=== PATIENT | male | born 1935 | race Caucasian/White ===

== ENCOUNTER → 2018-07-08 | Outpatient (CLI) | payer MEDICARE ==
[~2018-07-08] MED LIST: ACET-77 PO; AMLO10TA4 PO; AMOX500C2 PO; BISO10TA8 PO; IOHEXOL 350 MG/ML 150 ML (OMNIPAQUE 350) VIAL IV ONE; LATA2.5D19 OS; LEVE10006 PO; LISI40TA PO; NS 250 ML (IVPB) BAG IV ONE; SULF1TAB35 PO
[2018-07-08 14:56] LABS: BASOPHILS % (AUTO) 0 % (0-10); EOSINOPHILS % (AUTO) 1 % (0-10); HEMATOCRIT 40 % (40-54); HEMOGLOBIN 12.8 G/DL (13.3-17.7); LYMPHOCYTES # (AUTO) 0.9 X 10^3 (1.0-4.0); LYMPHOCYTES % (AUTO) 16 % (12-44); MEAN CORPUSCULAR HEMOGLOBIN 34 PG (25-34); MEAN CORPUSCULAR HGB CONC 32 G/DL (32-36); MEAN CORPUSCULAR VOLUME 106 FL (80-99); MEAN PLATELET VOLUME 9.7 FL (7.4-10.4); MONOCYTES # (AUTO) 0.4 X 10^3 (0.0-1.0); MONOCYTES % (AUTO) 7 % (0-12); NEUTROPHILS # (AUTO) 3.9 X 10^3 (1.8-7.8); NEUTROPHILS % (AUTO) 75 % (42-75); PLATELET COUNT 176 10^3/uL (130-400); RED BLOOD COUNT 3.77 10^6/uL (4.35-5.85); RED CELL DISTRIBUTION WIDTH 13.2 % (10.0-14.5); WHITE BLOOD COUNT 5.2 10^3/uL (4.3-11.0)
[2018-07-08 15:15] LABS: ALANINE AMINOTRANSFERASE 16 U/L (0-55); ALBUMIN 3.6 GM/DL (3.2-4.5); ALKALINE PHOSPHATASE 81 U/L (40-136); BILIRUBIN,TOTAL 0.7 MG/DL (0.1-1.0); BUN/CREATININE RATIO 27; CALCIUM 9.2 MG/DL (8.5-10.1); CARBON DIOXIDE 40 MMOL/L (21-32); CHLORIDE 90 MMOL/L (98-107); CREATININE SERUM 1.05 MG/DL (0.60-1.30); GFR ESTIMATED > 60; GLUCOSE 108 MG/DL (70-105); POTASSIUM 5.2 MMOL/L (3.6-5.0); SODIUM 138 MMOL/L (135-145); TOTAL PROTEIN 6.6 GM/DL (6.4-8.2)
--- NOTE | 2018-07-08 15:59 | Diagnostic Imaging Report ---
PROCEDURE: CT angiography of the chest with contrast. TECHNIQUE: Multiple contiguous axial images were obtained through the chest after uneventful bolus administration of intravenous contrast. 2D reconstructed CTA MIP acquisitions were also performed. INDICATION: Congestive heart failure and shortness of breath. No prior studies are available for comparison. FINDINGS: Evaluation of the pulmonary arterial system is without evidence of thromboembolism. No filling defects are seen within central, lobar or segmental branches. The thoracic aorta is normal caliber. No dissection is identified. No pericardial or pleural fluid is identified. There is a large hiatal hernia. No definite axillary lymphadenopathy is seen. No mediastinal or hilar lymphadenopathy is identified. There is some scarring or subsegmental atelectasis in the superior segment of left lower lobe. There is some mild consolidation in the lingula. Right lung is clear. Upper abdomen is unremarkable. IMPRESSION: 1. No evidence of pulmonary embolism or thoracic aortic dissection. 2. Large hiatal hernia. 3. There is some mild subsegmental atelectasis or scarring on the left as well as a small area of parenchymal consolidation in the lingula consistent with pneumonia or atelectasis. No other significant abnormality is seen. Dictated by: Dictated on workstation # [id number]
== END ==
LOC: RAD 14:20
PROVIDERS: ATTEND Nurse Practitioner Family
DX: K44.9 Diaphragmatic hernia without obstruction or gangrene (principal); I50.9 Heart failure, unspecified; J18.1 Lobar pneumonia, unspecified organism; R60.0 Localized edema; G47.10 Hypersomnia, unspecified; E66.9 Obesity, unspecified
CPT/HCPCS: 36415; 71275; 80053; 85025

== ENCOUNTER → 2018-07-09 | Outpatient (CLI) | payer MEDICARE ==
[~2018-07-09] MED LIST changes: -IOHEXOL 350 MG/ML 150 ML (OMNIPAQUE 350) VIAL IV ONE; -NS 250 ML (IVPB) BAG IV ONE; +RT-ALBUTEROL SULF 2.5 MG/3 ML PRE-MIX VIAL INH ONE
== END ==
LOC: RT 13:00
PROVIDERS: ATTEND Nurse Practitioner Family
DX: I50.9 Heart failure, unspecified (principal); R60.9 Edema, unspecified; G47.10 Hypersomnia, unspecified; J96.20 Acute and chronic respiratory failure, unspecified whether with hypoxia or hypercapnia; E66.9 Obesity, unspecified; R06.00 Dyspnea, unspecified

== ENCOUNTER 2018-08-09 01:01 | Emergency (ER) | payer MEDICARE ==
[~2018-08-09] VITALS: Ht 175.3 cm; Wt 108.9 kg
[~2018-08-09 01:01] MED LIST changes: -RT-ALBUTEROL SULF 2.5 MG/3 ML PRE-MIX VIAL INH ONE
--- OUTSIDE RECORDS SUMMARY | 2018-08-09 01:08 | XMS REPORT | Clinical Summary ---
Author Author [facility] Organization [facility] Address Unknown Phone Unavailable Care Team Providers Care Fabrication Supervisor Name Role Phone Suze Combs MD PCP Source Comments Some departments are not documenting in the electronic medical record. If you do not see the information that you expected, contact Release of Information in the Health Information Management department at [phone] for further assistance in locating additional records.[facility] Allergies No Known Allergies Current Medications Prescription Sig. Disp. Refills Start End Date Status Date lisinopril (PRINIVIL; Take 10 mg by mouth Active ZESTRIL) 10 mg tablet daily. latanoprost (XALATAN) Apply 1 drop to left eye Active 0.005 % ophthalmic as directed at bedtime solution daily. carvedilol (COREG) 3.125 Take one tablet by mouth 180 tablet 3 Active mg tablet twice daily. Take with 18 food. furosemide (LASIX) 40 mg Take one tablet by mouth 90 tablet 3 Active tablet daily. 18 spironolactone Take one tablet by mouth 90 tablet 3 06/27/20 Active (ALDACTONE) 25 mg tablet daily. Take with food. 18 montelukast (SINGULAIR) Take one tablet by mouth 90 tablet 3 06/27/20 Active 10 mg tablet at bedtime daily. 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) 06/22/2018 Resolved Problems Problem Noted Date Resolved Date Acute encephalopathy 06/22/2018 06/25/2018 Encounters Date Type Specialty Care Team Description 06/30/2018 Hosp Joyce Last RNbranch service associate Only 06/28/2018 Pharmacy Visit 06/28/2018 Pharmacy Visit 06/26/2018 Pharmacy Visit 06/22/2018 [facility] Lia Foster MD Acute respiratory failure - Encounter Dwayne Myers MD with hypoxia and 06/27/2018 Tien Harper MD hypercapnia (HCC) Bridgett Rodgers MD 06/21/2018 Hospital Radiology Encounter 06/21/2018 Hospital Radiology Encounter 06/21/2018 Hospital Radiology Encounter from Last 3 Months Family History Medical History Relation Name Comments Heart Failure Mother Relation Name Status Comments Mother Social History Tobacco Use Types Packs/Day Years Used Date Former Smoker Cigarettes 2 35 Quit: 06/24/1978 Smokeless Tobacco: Never Used Alcohol Use Drinks/Week oz/Week Comments No Sex Assigned at Date Recorded Not on file Last Filed Vital Signs Vital Sign Reading Time Taken Blood Pressure 137/77 06/27/2018 4:09 PM CDT Pulse 80 06/27/2018 4:09 PM CDT Temperature 36.4 C (97.5 F) 06/27/2018 4:09 PM CDT Respiratory Rate - - Oxygen Saturation 98% 06/27/2018 4:09 PM CDT Inhaled Oxygen - - Concentration Weight 119.2 kg (262 lb 12.6 oz) 06/25/2018 3:00 AM CDT Height 173 cm (5' 8.11") 06/22/2018 10:18 AM CDT Body Mass Index 39.83 06/25/2018 3:00 AM CDT Plan of Treatment Health Maintenance Due Date Last Done Comments PHYSICAL (COMPREHENSIVE) 1942 EXAM DTAP/TDAP VACCINES (1 - 1955 Tdap) SHINGLES RECOMBINANT 1987 VACCINE (1 of 2) PNEUMONIA (PCV13/PPSV23) 2002 VACCINES (1 of 2 - PCV13) INFLUENZA VACCINE 04/14/2018 Procedures Procedure Name Priority Date/Time Associated Diagnosis Comments ECG-SCAN 07/24/2018 Results for this 5:50 PM INSPECTOR [employer]IP ON [employer]GLASSES procedure are in the results section. ECG-SCAN 07/24/2018 Results for this 5:50 PM INSPECTOR [employer] procedure are in the results section. ECG-SCAN 07/24/2018 Results for this 5:50 PM INSPECTOR [employer] procedure are in the results section. TELEMETRY STRIPS-SCAN 06/28/2018 Results for this 11:41 AM CDT procedure are in the results section. BLOOD GASES, PERIPHERAL Routine 06/27/2018 Results for this VENOUS 5:35 AM CDT procedure are in the results section. CBC AND DIFF Routine 06/27/2018 Results for this 4:57 AM CDT procedure are in the results section. COMPREHENSIVE METABOLIC Routine 06/27/2018 Results for this PANEL 4:57 AM CDT procedure are in the results section. MAGNESIUM Routine 06/27/2018 Results for this 4:57 AM CDT procedure are in the results section. PHOSPHORUS Routine 06/27/2018 Results for this 4:57 AM CDT procedure are in the results section. BLOOD GASES, PERIPHERAL Routine 06/26/2018 Results for this VENOUS 2:29 PM CDT procedure are in the results section. CONSULT IV THERAPY TEAM Routine 06/26/2018 1:39 PM CDT PHOSPHORUS Routine 06/26/2018 Results for this 6:36 AM CDT procedure are in the results section. MAGNESIUM Routine 06/26/2018 Results for this 6:36 AM CDT procedure are in the results section. COMPREHENSIVE METABOLIC Routine 06/26/2018 Results for this PANEL 6:36 AM CDT procedure are in the results section. CBC AND DIFF Routine 06/26/2018 Results for this 6:36 AM CDT procedure are in the results section. BLOOD GASES, ARTERIAL Routine 06/26/2018 Results for this 6:08 AM CDT procedure are in the results section. PHOSPHORUS Routine 06/25/2018 Results for this 7:07 AM CDT procedure are in the results section. MAGNESIUM Routine 06/25/2018 Results for this 7:07 AM CDT procedure are in the results section. COMPREHENSIVE METABOLIC Routine 06/25/2018 Results for this PANEL 7:07 AM CDT procedure are in the results section. CBC AND DIFF Routine 06/25/2018 Results for this 7:07 AM CDT procedure are in the results section. PHOSPHORUS STAT 06/24/2018 Results for this 4:48 AM CDT procedure are in the results section. MAGNESIUM STAT 06/24/2018 Results for this 4:48 AM CDT procedure are in the results section. COMPREHENSIVE METABOLIC STAT 06/24/2018 Results for this PANEL 4:48 AM CDT procedure are in the results section. CBC AND DIFF Routine 06/24/2018 Results for this 3:43 AM CDT procedure are in the results section. SWALLOW MOTION SERIES Routine 06/23/2018 Results for this 2:28 PM CDT procedure are in the results section. POTASSIUM Routine 06/23/2018 Results for this 8:44 AM CDT procedure are in the results section. BLOOD GASES, ARTERIAL Routine 06/23/2018 Results for this 8:44 AM CDT procedure are in the results section. MAGNESIUM Routine 06/23/2018 Results for this 8:44 AM CDT procedure are in the results section. PHOSPHORUS Routine 06/23/2018 Results for this 4:38 AM CDT procedure are in the results section. COMPREHENSIVE METABOLIC Routine 06/23/2018 Results for this PANEL 4:38 AM CDT procedure are in the results section. CBC AND DIFF Routine 06/23/2018 Results for this 4:38 AM CDT procedure are in the results section. MAGNESIUM Routine 06/23/2018 Results for this 12:15 AM CDT procedure are in the results section. POTASSIUM Routine 06/23/2018 Results for this 12:15 AM CDT procedure are in the results section. MAGNESIUM STAT 06/22/2018 Results for this 5:27 PM CDT procedure are in the results section. POTASSIUM STAT 06/22/2018 Results for this 5:27 PM CDT procedure are in the results section. 2-D + DOPPLER Routine 06/22/2018 Results for this ECHOCARDIOGRAM 10:17 AM CDT procedure are in the results section. PROTIME INR (PT) STAT 06/22/2018 Results for this 3:55 AM CDT procedure are in the results section. PTT (APTT) STAT 06/22/2018 Results for this 3:55 AM CDT procedure are in the results section. TROPONIN-I STAT 06/22/2018 Results for this 3:55 AM CDT procedure are in the results section. RVP VIRAL PANEL PCR Routine 06/22/2018 Results for this 2:02 AM CDT procedure are in the results section. GRAM STAIN 06/22/2018 Results for this 2:02 AM CDT procedure are in the results section. CULTURE-RESP,LOWER Routine 06/22/2018 Results for this W/SENSITIVITY 2:02 AM CDT procedure are in the results section. BLOOD GASES, ARTERIAL STAT 06/22/2018 Results for this 1:41 AM CDT procedure are in the results section. CULTURE-BLOOD Routine 06/22/2018 Results for this W/SENSITIVITY 1:41 AM CDT procedure are in the results section. CHEST SINGLE VIEW VILMA 06/22/2018 Results for this 1:28 AM CDT procedure are in the results section. PROCALCITONIN Add on 06/22/2018 Results for this 1:25 AM CDT procedure are in the results section. TROPONIN-I STAT 06/22/2018 Results for this 1:25 AM CDT procedure are in the results section. TSH WITH FREE T4 REFLEX Routine 06/22/2018 Results for this 1:25 AM CDT procedure are in the results section. BNP (B-TYPE NATRIURETIC Routine 06/22/2018 Results for this PEPTI) 1:25 AM CDT procedure are in the results section. PHOSPHORUS Routine 06/22/2018 Results for this 1:25 AM CDT procedure are in the results section. MAGNESIUM Routine 06/22/2018 Results for this 1:25 AM CDT procedure are in the results section. COMPREHENSIVE METABOLIC Routine 06/22/2018 Results for this PANEL 1:25 AM CDT procedure are in the results section. CBC AND DIFF Routine 06/22/2018 Results for this 1:25 AM CDT procedure are in the results section. CULTURE-BLOOD Routine 06/22/2018 Results for this W/SENSITIVITY 1:25 AM CDT procedure are in the results section. IONIZED CALCIUM Routine 06/22/2018 Results for this 1:19 AM CDT procedure are in the results section. LACTIC ACID (BG - RAPID Routine 06/22/2018 Results for this LACTATE) 1:19 AM CDT procedure are in the results section. STREPTOCOCCUS PNEUMO AG, STAT 06/22/2018 Results for this URINE 1:12 AM CDT procedure are in the results section. LEGIONELLA ANTIGEN Routine 06/22/2018 Results for this URINE,RAN 1:12 AM CDT procedure are in the results section. URINALYSIS, MICROSCOPIC Routine 06/22/2018 Results for this 1:12 AM CDT procedure are in the results section. URINALYSIS DIPSTICK Routine 06/22/2018 Results for this 1:12 AM CDT procedure are in the results section. ECG 12-LEAD STAT 06/22/2018 1:03 AM CDT GENERAL RAD CHEST Routine 06/21/2018 Diagnosis unknown Results for this EXTERNAL IMAGING 12:30 AM CDT procedure are in the results section. GENERAL RAD CHEST Routine 06/21/2018 Diagnosis unknown Results for this EXTERNAL IMAGING 12:15 AM CDT procedure are in the results section. CT HEAD EXTERNAL IMAGING Routine 06/21/2018 Diagnosis unknown Results for this 12:00 AM CDT procedure are in the results section. from Last 3 Months Results * ECG-SCAN (07/24/2018 5:50 PM) Narrative Performed At Ordered by an unspecified provider. * ECG-SCAN (07/24/2018 5:50 PM) Narrative Performed At Ordered by an unspecified provider. * ECG-SCAN (07/24/2018 5:50 PM) Narrative Performed At Ordered by an unspecified provider. * TELEMETRY STRIPS-SCAN (06/28/2018 11:41 AM) Narrative Performed At Ordered by an unspecified provider. * BLOOD GASES, PERIPHERAL VENOUS (06/27/2018 5:35 AM) Only the most recent of 2 results within the time period is included. pH-Venous 7.34 7.30 - 7.40 [facility] PCO2-Venous 82 (H) 36 - 50 MMHG [facility] PO2-Venous 48 33 - 48 MMHG [facility] Base Excess-Venous 13.5 MMOL/L [facility] O2 Sat-Venous 81.7 (H) 55 - 71 % [facility] Voujnmfxvmb-HCR-Rag 36.9 MMOL/L [facility] Specimen Blood, venous - Blood Performing Organization Address City/State/Zipcode Phone Number [facility] [address] [place] [address] * CBC AND DIFF (06/27/2018 4:57 AM) Only the most recent of 6 results within the time period is included. White Blood Cells 3.7 (L) 4.5 - 11.0 K/UL MAIN [facility] RBC 3.69 (L) 4.4 - 5.5 M/UL [facility] Hemoglobin 12.6 (L) 13.5 - 16.5 GM/DL [facility] Hematocrit 39.0 (L) 40 - 50 % [facility] MCV 105.7 (H) 80 - 100 FL [facility] MCH 34.1 (H) 26 - 34 PG [facility]IN [facility] MCHC 32.3 32.0 - 36.0 G/DL MAIN LAB RDW 14.1 11 - 15 % [facility] Platelet Count 141 (L) 150 - 400 K/UL [facility] MPV 7.5 7 - 11 FL [facility] Neutrophils 72 41 - 77 % [facility] Lymphocytes 14 (L) 24 - 44 % [facility] Monocytes 13 (H) 4 - 12 % [facility] Eosinophils 1 0 - 5 % [facility] Basophils 0 0 - 2 % [facility] Absolute Neutrophil Count 2.70 1.8 - 7.0 K/UL [facility] Absolute Lymph Count 0.50 (L) 1.0 - 4.8 K/UL [facility] Absolute Monocyte Count 0.50 0 - 0.80 K/UL [facility] Absolute Eosinophil Count 0.00 0 - 0.45 K/UL [facility] Absolute Basophil Count 0.00 0 - 0.20 K/UL [facility] Specimen Blood Performing Organization Address City/[facility] Phone Number [facility] [address] [place] [address] * PHOSPHORUS (06/27/2018 4:57 AM) Only the most recent of 6 results within the time period is included. Phosphorus 2.7Comment: NOTE NEW REFERENCE 2.0 - 4.5 MG/DL MAIN LAB RANGES Specimen Blood Performing Organization Address [facility] Phone Number MAIN LAB [address] [place] [address] * MAGNESIUM (06/27/2018 4:57 AM) Only the most recent of 8 results within the time period is included. Magnesium 1.8 1.6 - 2.6 mg/dL [facility] Specimen Blood Performing Organization Address [facility] Phone Number [facility] [address] [place] [address] * COMPREHENSIVE METABOLIC PANEL (06/27/2018 4:57 AM) Only the most recent of 6 results within the time period is included. Sodium 140 137 - 147 MMOL/L [facility] Potassium 3.8 3.5 - 5.1 MMOL/L [facility] Chloride 93 (L) 98 - 110 MMOL/L [facility] Glucose 103 (H) 70 - 100 MG/DL [facility] Blood Urea Nitrogen 23 7 - 25 MG/DL [facility] Creatinine 0.80 0.4 - 1.24 MG/DL [facility] Calcium 8.7 8.5 - 10.6 MG/DL [facility] Total Protein 5.6 (L) 6.0 - 8.0 G/DL [facility] Total Bilirubin 0.6 0.3 - 1.2 MG/DL [facility] Albumin 3.1 (L) 3.5 - 5.0 G/DL [facility] Alk Phosphatase 46 25 - 110 U/L MAIN LAB AST (SGOT) 15 7 - 40 U/L [facility] CO2 42 (H) 21 - 30 MMOL/L [facility] ALT (SGPT) 9 7 - 56 U/L MAIN LAB Anion Gap 5 3 - 12 [facility] eGFR Non >60 >60 mL/min MAIN LAB Comment: The eGFR is not validated for use in drug dosing adjustments.Continue to use estimated creatinine clearance per dosing reference text.Please contact the Clinical Pharmacist for questions. eGFR >60 >60 mL/min MAIN LAB Comment: The eGFR is not validated for use in drug dosing adjustments.Continue to use estimated creatinine clearance per dosing reference text.Please contact the Clinical Pharmacist for questions. Specimen Blood Performing Organization Address City/[facility]/Zipcode Phone Number [facility] [address] [place] [address] * BLOOD GASES, ARTERIAL (06/26/2018 6:08 AM) Only the most recent of 3 results within the time period is included. pH-Arterial 7.35 7.35 - 7.45 MAIN LAB pCO2-Arterial 76 (HH) 35 - 45 MM[facility] MAIN LAB Comment: CRITICAL VALUE CALLED TO AND READ BACK BY/TIME/TECH MIGDALIA S/0638/NT pO2-Arterial 60 (L) 80 - 100 MM[facility] MAIN LAB Base Excess-Arterial 11.9 MMOL/L [facility] O2 Sat-Arterial 89.7 (L) 95 - 99 % [facility] Zzsimqzhwxn-PXL-Sja 35.5 (H) 21 - 28 MMOL/L [facility] Specimen Blood, arterial - Blood Performing Organization Address City/[facility]/Zipcode Phone Number [facility] [address] [place] [address] * SWALLOW MOTION SERIES (06/23/2018 2:28 PM) Impressions Performed At 1. Trace laryngeal penetration with thin consistency barium. [facility] RESULTS 2. Please see separately dictated report from the Department of Speech Pathology for further description. By my electronic signature, I attest that I have personally reviewed the images for this examination and formulated the interpretations and opinions expressed in this report Finalized by Dean Padron M.D. on 06/23/2018 3:43 PM. Dictated by Ritchie Payne D.O. on 06/23/2018 2:45 PM. Narrative Performed At SWALLOW MOTION SERIES [facility] RAD RESULTS CLINICAL HISTORY: 83-year-old male, community-acquired pneumonia of the right lower lobe, acute encephalopathy. TECHNIQUE: The procedure was performed in conjunction with members of the department of speech pathology. Video fluoroscopy was performed during swallowing of various consistencies of barium. The patient tolerated the procedure well and left the department in stable condition. TOTAL FLUOROSCOPY TIME: 138 seconds FINDINGS: Trace laryngeal penetration with thin consistency barium. No laryngeal penetration noted with other tested consistencies. No aspiration events. Procedure Note Interface, Radiant Results - 06/23/2018 3:46 PM CDT SWALLOW MOTION SERIES CLINICAL HISTORY: 83-year-old male, community-acquired pneumonia of the right lower lobe, acute encephalopathy. TECHNIQUE: The procedure was performed in conjunction with members of the department of speech pathology. Video fluoroscopy was performed during swallowing of various consistencies of barium. The patient tolerated the procedure well and left the department in stable condition. TOTAL FLUOROSCOPY TIME: 138 seconds FINDINGS: Trace laryngeal penetration with thin consistency barium. No laryngeal penetration noted with other tested consistencies. No aspiration events. IMPRESSION 1. Trace laryngeal penetration with thin consistency barium. 2. Please see separately dictated report from the Department of Speech Pathology for further description. By my electronic signature, I attest that I have personally reviewed the images for this examination and formulated the interpretations and opinions expressed in this report Finalized by Dean Padron M.D. on 06/23/2018 3:43 PM. Dictated by Ritchie Payne D.O. on 06/23/2018 2:45 PM. Performing Organization Address City/[facility] Phone Number [facility] * POTASSIUM (06/23/2018 8:44 AM) Only the most recent of 3 results within the time period is included. Potassium 4.0 3.5 - 5.1 MMOL/L [facility] Specimen Blood Performing Organization Address City/[facility] Phone Number MAIN LAB [address] [place] [address] * 2-D + DOPPLER ECHOCARDIOGRAM (06/22/2018 10:17 AM) IVS 0.61 0.6 - 1.0 cm OTHER OUTSIDE LAB LVIDD 5.51 4.2 - 5.8 cm OTHER OUTSIDE LAB LVIDS 4.37 2.5 - 4.0 cm OTHER OUTSIDE LAB PW 0.95 0.6 - 1.0 cm OTHER OUTSIDE LAB TDI e' 0.08 m/s OTHER OUTSIDE LAB LA size 3.94 3.0 - 4.0 cm OTHER OUTSIDE LAB AV peak velocity 1.27 m/s OTHER OUTSIDE LAB MV Peak A James 0.75 m/s OTHER OUTSIDE LAB MV Peak E James PW 0.55 m/s OTHER OUTSIDE LAB Sinus 3.51 3.1 - 3.7 cm OTHER OUTSIDE LAB BSA 2.39 m2 OTHER OUTSIDE LAB FS 20.69 28 - 44 % OTHER OUTSIDE LAB EF 35.17 % OTHER OUTSIDE LAB E/A ratio 0.73 OTHER OUTSIDE LAB E/E' ratio 6.88 OTHER OUTSIDE LAB LV mass 155.44 96 - 200 g OTHER OUTSIDE LAB RWT 0.34 <=0.42 OTHER OUTSIDE LAB TV rest pulmonary artery 70 mmHg OTHER OUTSIDE LAB pressure Cardiology Ultrasound Siemens [id number] OTHER OUTSIDE LAB Machine Left Ventricle Mass Index 65.04 50 - 102 g/m2 OTHER OUTSIDE LAB ECHO EF 60 % OTHER OUTSIDE LAB Narrative Performed At OTHER OUTSIDE LAB 1. Technically difficult study with poor visualization of cardiac structures. 2. Normal left ventricular systolic function with an EF of ejection fraction of 60-65% %. 3. No regional wall motion abnormalities. 4. Diastolic parameters were indeterminate. 5. The RV is not well visualized, it appears dilated with mildly impaired function.There is no D-shaped septum.We were unable to obtain quantitative parameters. 6. MAC with nonspecific mitral valve thickening, mitral valve function was preserved. 7. Mild to moderate TR. 8. Aortic sclerosis without stenosis. 9. Pulmonary hypertension with a peak pulmonary pressure of 70 mmHg. 10. Aortic root is at the upper end of normal for age and body surface area. 11. No pericardial effusion. No prior studies available for comparison. Performing Organization Address City/State/Zipcode Phone Number OTHER OUTSIDE LAB * TROPONIN-I (06/22/2018 3:55 AM) Only the most recent of 2 results within the time period is included. Troponin-I 0.04 0.0 - 0.05 NG/ML [facility] Specimen Blood Performing Organization Address [facility] Phone Number [facility] [address] [place] [address] * PTT (APTT) (06/22/2018 3:55 AM) APTT 23.2Comment: NOTE NEW 20.0 - 36.0 SEC [facility] REFERENCE RANGES Specimen Blood Performing Organization Address [facility] Phone Number MA[facility] LAB [address] [place] [address] * PROTIME INR (PT) (06/22/2018 3:55 AM) INR 1.1 0.8 - 1.2 MAIN LAB Specimen Blood Performing Organization Address [facility] Phone Number MAIN LAB [address] [place] [address] * RVP VIRAL PANEL PCR (06/22/2018 2:02 AM) Specimen Source NASAL WASH [facility] Adenovirus NOT DETECTED [facility] Coronavirus 229E NOT DETECTED [facility] Coronavirus HKU1 NOT DETECTED [facility] Coronavirus NL63 NOT DETECTED [facility] Coronavirus OC43 NOT DETECTED [facility] Human Metapneumovirus NOT DETECTED [facility] Human NOT DETECTED [facility] Rhinovirus/ENTEROVIRUS Influenza A H1N1 2009 NOT DETECTED [facility] Influenza A H1 NOT DETECTED [facility] Influenza A H3 NOT DETECTED [facility] Influenza B NOT DETECTED [facility] Parainfluenza 1 NOT DETECTED [facility] Parainfluenza 2 NOT DETECTED [facility] Parainfluenza 3 NOT DETECTED MAIN LAB Parainfluenza 4 NOT DETECTED [facility] RSV NOT DETECTED [facility] Bordetella Pertussis NOT DETECTED [facility] Chlamydophila Pneumoniae NOT DETECTED [facility] Mycoplasma Pneumoniae NOT DETECTED [facility] Specimen Nasal Wash Performing Organization Address [facility] Phone Number MAIN LAB [address] [place] [address] * GRAM STAIN (06/22/2018 2:02 AM) Battery Name GRAM STAIN [facility] Specimen Description TRACHEAL ASPIRATE [facility] Special Requests NONE [facility] Gram Stain LESS THAN 10/LPF [facility] NEUTROPHILS LESS THAN 10/LPF SQUAMOUS EPITHELIAL CELLS NO ORGANISMS SEEN Report Status FINAL [facility] 06/22/2018 Specimen Tracheal Aspirate Performing Organization Address [facility] Phone Number [facility] [address] [place] [address] * CULTURE-RESP,LOWER W/SENSITIVITY (06/22/2018 2:02 AM) Battery Name LOWER RESP CULTURE [facility] Specimen Description TRACHEAL ASPIRATE [facility] Special Requests NONE [facility] Direct Gram Stain LESS THAN 10/LPF [facility] NEUTROPHILS LESS THAN 10/LPF SQUAMOUS EPITHELIAL CELLS NO ORGANISMS SEEN Culture Moderate growth [facility] NORMAL OROPHARYNGEAL DEIDRE Report Status FINAL [facility] 06/24/2018 Specimen Tracheal Aspirate Performing Organization Address [facility] Phone Number [facility] [address] [place] [address] * CULTURE-BLOOD W/SENSITIVITY (06/22/2018 1:41 AM) Only the most recent of 2 results within the time period is included. Battery Name BLOOD CULTURE MAIN LAB Specimen Description BLOOD MAIN LAB LEFT RADIAL Special Requests NONE [facility] Culture NO GROWTH 5 DAYS [facility] Report Status FINAL [facility] 06/28/2018 Specimen Blood Performing Organization Address [facility] Phone Number [facility] [address] [place] [address] * CHEST SINGLE VIEW (06/22/2018 1:28 AM) Impressions Performed At 1.Enlargement of the cardiac silhouette with mild pulmonary venous [facility] RESULTS congestion compatible with CHF/fluid overload. 2.Patchy bibasilar opacities which may be due to atelectasis and/or pneumonia. 3.Small left pleural effusion. Approved by Cecelia Grayson M.D. on 06/22/2018 10:17 AM By my electronic signature, I attest that I have personally reviewed the images for this examination and formulated the interpretations and opinions expressed in this report Finalized by Amrit Sutton M.D. on 06/22/2018 11:41 AM. Dictated by Cecelia Grayson M.D. on 06/22/2018 7:58 AM. Narrative Performed At [facility] RESULTS Clinical Indication: Male, 83 years old. Intubated, acute encephalopathy Comparison: None Findings: Endotracheal tube is in place with the tip above the level of tenisha. Gastric tube is in place with the tip overlying the gastric body. The cardiac silhouette is mildly enlarged with mild pulmonary venous congestion. Scattered areas of scarring are seen throughout both lungs. Patchy opacities are seen within both lung bases. Small left pleural effusion. Procedure Note Interface, Radiant Results - 06/22/2018 11:44 AM CDT [facility] Clinical Indication: Male, 83 years old. Intubated, acute encephalopathy Comparison: None Findings: Endotracheal tube is in place with the tip above the level of tenisha. Gastric tube is in place with the tip overlying the gastric body. The cardiac silhouette is mildly enlarged with mild pulmonary venous congestion. Scattered areas of scarring are seen throughout both lungs. Patchy opacities are seen within both lung bases. Small left pleural effusion. IMPRESSION 1. Enlargement of the cardiac silhouette with mild pulmonary venous congestion compatible with CHF/fluid overload. 2. Patchy bibasilar opacities which may be due to atelectasis and/or pneumonia. 3. Small left pleural effusion. Approved by Cecelia Grayson M.D. on 06/22/2018 10:17 AM By my electronic signature, I attest that I have personally reviewed the images for this examination and formulated the interpretations and opinions expressed in this report Finalized by Amrit Sutton M.D. on 06/22/2018 11:41 AM. Dictated by Cecelia Grayson M.D. on 06/22/2018 7:58 AM. Performing Organization Address [facility] Phone Number RAD RESULTS * PROCALCITONIN (06/22/2018 1:25 AM) Procalcitonin 0.02 <0.10 NG/ML [facility] Performing Organization Address [facility] Phone Number [facility] [address] [place] [address] * TSH WITH FREE T4 REFLEX (06/22/2018 1:25 AM) TSH 3.100 0.35 - 5.00 MCU/ML [facility] Specimen Blood Performing Organization Address [facility] Phone Number MAIN LAB [address] [place] [address] * BNP (B-TYPE NATRIURETIC PEPTI) (06/22/2018 1:25 AM) B Type Natriuretic 370.0 (H) 0 - 100 PG/ML [facility] Peptide Specimen Blood Performing Organization Address [facility] Phone Number [facility] [address] [place] [address] * LACTIC ACID (BG - RAPID LACTATE) (06/22/2018 1:19 AM) Lactic Acid,BG 2.2 (H) 0.5 - 2.0 MMOL/L [facility] Specimen Blood Performing Organization Address [facility] Phone Number [facility] [address] [place] [phone] * IONIZED CALCIUM (06/22/2018 1:19 AM) Ionized Calcium 0.98 (L) 1.0 - 1.3 MMOL/L MAIN LAB Specimen Blood Performing Organization Address [facility] Phone Number MAIN LAB [address] [place] [address] * STREPTOCOCCUS PNEUMO AG, URINE (06/22/2018 1:12 AM) Battery Name STREP PNEUMO AG, UR [facility] Specimen Description URINE [facility] Special Requests NONE [facility] Antigen NEGATIVE [facility] Report Status FINAL MAIN LAB 06/22/2018 Specimen Urine Performing Organization Address [facility] Phone Number [facility] [address] [place] [address] * URINALYSIS, MICROSCOPIC (06/22/2018 1:12 AM) WBCs,UA 0-2 0 - 2 /HPF [facility] RBCs,UA 10-20 0 - 3 /HPF [facility] MucousUA TRACE [facility] Specimen Urine - Urine Performing Organization Address [facility] Phone Number [facility] LAB [address] [place] [phone] * URINALYSIS DIPSTICK (06/22/2018 1:12 AM) Color,UA STRAW [facility] Turbidity,UA CLEAR CLEAR-CLEAR [facility] Specific [place]-Urine 1.006 1.003 - 1.035 [facility] pH,UA 5.0 5.0 - 8.0 [facility] Protein,UA NEG NEG-NEG [facility] Glucose,UA NEG NEG-NEG [facility] Ketones,UA 1+ (A) NEG-NEG [facility] Bilirubin,UA NEG NEG-NEG [facility] Blood,UA 2+ (A) NEG-NEG [facility] Urobilinogen,UA NORMAL NORM-NORMAL [facility] Nitrite,UA NEG NEG-NEG [facility] Leukocytes,UA NEG NEG-NEG [facility] Urine Ascorbic Acid, UA NEG NEG-NEG [facility] Specimen Urine - Urine Performing Organization Address City/[facility]/Zipcode Phone Number [facility] MA[facility] [address] [place] [address] * LEGIONELLA ANTIGEN URINE,RAN (06/22/2018 1:12 AM) Battery Name LEGIONELLA URINE ANTIGEN [facility] Specimen Description URINE [facility] Special Requests NONE [facility] Antigen NEGATIVE [facility] Report Status FINAL [facility] 06/22/2018 Specimen Urine - Urine Performing Organization Address [facility] Phone Number [facility] LAB [address] [place] [address] * GENERAL RAD CHEST EXTERNAL IMAGING (06/21/2018 12:30 AM) Only the most recent of 2 results within the time period is included. Narrative Performed At This order has been auto finalized and does not contain a result. * CT HEAD EXTERNAL IMAGING (06/21/2018) Narrative Performed At This order has been auto finalized and does not contain a result. from Last 3 Months
--- OUTSIDE RECORDS SUMMARY | 2018-08-09 01:09 | XMS REPORT | Encounter Summary ---
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 Unit Only [address] [place] [address] Social History Tobacco Use Types Packs/Day Years Used Date Former Smoker Cigarettes 2 35 Quit: 06/24/1978 Smokeless Tobacco: Never Used Alcohol Use Drinks/Week oz/Week Comments No Sex Assigned at Date Recorded Not on file as of this encounter Functional Status Functional Status Response Date of Assessment Does the patient have a hearing impairment: Yes 06/23/2018 Does the patient have a visual impairment: No 06/27/2018 Does the patient have impaired ambulation: Yes 06/27/2018 Does the patient have an activity of daily living Yes 06/27/2018 (ADL) impairment: Does the patient have an instrumental activity of Yes 06/27/2018 daily living (IADL) impairment: Cognitive Status Response Date of Assessment Does the patient have a cognitive impairment: No 06/27/2018 as of this encounter Progress Notes * Joyce Last, LACI - 06/30/2018 1:49 PM CDT Spoke with patient's , Cecily, regarding post discharge follow up. Patient Perception: Cecily stated "so far things are going really well." Cecily reported there was an issue the first night home getting his oxygen set up but it has been resolved and she is happy with the care provided. She reports he is sleeping well through the night in his recliner, though occasionally waking up slightly confused, as if his dreams are reality. Admitting diagnosis: Respiratory failure Home Services / Help at home: [employer]. Cecily reports he was signed up Thursday; PT came out this morning and speech is coming this afternoon. Lifestyle changes: Cecily reported they have weighed him both mornings since he has been home and that she is setting an alarm around dinner time to remember to take his coreg with dinner. New medications / Medication Calendar: reviewed with Cecily, she states they picked them up from [email or web address], understood how to take them, no questions or concerns. Follow up appointments: patient to see PCP Dr. Combs to follow up and check labs, possibly get sleep study Nutrition/Supplementation: n/a Did you review if the patient was satisfied with their stay? Yes - very pleased with care Unit contact information provided to family to call with questions or concerns. in this encounter Plan of Treatment Not on fileas of this encounter Visit Diagnoses Not on filein this encounter
--- OUTSIDE RECORDS SUMMARY | 2018-08-09 01:09 | XMS REPORT | Encounter Summary ---
Author Author [facility] Organization [facility] Address Unknown Phone Unavailable Care Team Providers Care Director Orange Name Role Phone Suze Combs MD PCP Encounter Details Date Type Department Care Team Description 06/28/2018 Pharmacy Visit [facility] [address] [place] [address] Social History Tobacco Use Types Packs/Day Years [...] impairment: No 06/27/2018 as of this encounter Plan of Treatment Not on fileas of this encounter Visit Diagnoses Not on filein this encounter
--- OUTSIDE RECORDS SUMMARY | 2018-08-09 01:09 | XMS REPORT | Encounter Summary ---
Author Author [facility] Organization [facility] Address Unknown Phone Unavailable Care Team Providers Care Prosthetic Aide Name Role Phone Suze Combs MD PCP Encounter Details Date Type Department Care Team Description 06/28/2018 Pharmacy Visit [facility] [address] [place] [address] [address] [place] [address] Social History Tobacco Use Types Packs/Day Years [...]
--- OUTSIDE RECORDS SUMMARY | 2018-08-09 01:11 | XMS REPORT | Encounter Summary ---
Author Author [facility] Organization [facility] Address Unknown Phone Unavailable Care Team Providers Care Treating Engineer Helper Name Role Phone Suze Combs MD PCP Reason for Visit * Auth/Cert Status Reason Specialty Diagnoses / Referred By Referred To Procedures Contact Contact Diagnoses Acute respiratory failure with hypoxia (HCC) Resp. Failure Encounter Details Date Type Department Care Team Description 06/22/2018 Hospital Medical Telemetry Lia Foster MD Acute respiratory failure - Encounter [facility] 6th fl Unit [address] [facility] with hypoxia and 06/27/2018 [address] [place] 3007 hypercapnia (HCC) [address] [place] [address] [place] [address] [phone] Dwayne Mccoy MD [address] [facility] [address] [place] [address] [phone] Tien Delgado MD [address] [facility] [address] [place] [address] [phone] Benja Collazo MD [address] [place] [address] [phone] Social History Tobacco Use Types Packs/Day Years Used Date Former Smoker Cigarettes 2 35 Quit: 06/24/1978 Smokeless Tobacco: Never Used Alcohol Use Drinks/Week oz/Week Comments No Sex Assigned at Date Recorded Not on file as of this encounter Last Filed Vital Signs Vital Sign Reading [...] Mass Index 39.83 06/25/2018 3:00 AM CDT in this encounter Functional Status Functional Status Response [...] impairment: No 06/27/2018 as of this encounter Discharge Summaries * Benja Rodgers MD - 06/26/2018 12:43 PM CDT Formatting of this note may be different from the original. Physician Discharge Summary Name: Dorie York Date Of : 1935 Age: 83 years Admit date: 06/22/2018 Discharge date: 06/27/2018 Attending Physician: Benja Rodgers Service: [facility] 4337 Physician Summary completed by: Benja Rodgers MD Reason for hospitalization: acute hypoxic and hypercapnic resp failure 2/2 acute diastolic CHF exacerbation. Significant PMH: Past Medical History: Diagnosis Date Arthritis, salmonella (HCC) HTN (hypertension) Prostate cancer (HCC) Allergies: Patient has no known allergies. Admission Physical Exam notable for: General: sedated , intubated Head: Normocephalic, without obvious abnormality, atraumatic Eyes: Conjunctivae/corneas clear. PERRL Mouth/throat: Moist mucous membranes, ETT in place Neck: Supple, symmetrical, trachea midline Lungs: BL crackles ; no wheeze Heart: Regular rate and rhythm, S1, S2 normal, no murmur appreciated Abdomen: Soft, non-tender. Bowel sounds normal. Extremities: + 4 pitting edema BL Pulses: 2+ and symmetric, all extremities Skin: No rashes or lesions noted Neurologic: sedated, once awake, was following command, non focal. Admission Lab/Radiology studies notable for: see details below Brief Hospital Course: The patient was admitted and the following issues were addressed during this hospitalization: (with pertinent details). 83yoM w/ PMH of prostate Ca s/p XRT, SDH s/p fall w/ one resultant seizure, HTN admitted from OSH w/ acute hypoxic and hypercapnic resp failure 2/2 acute diastolic CHF exacerbation. Acute hypoxic and hypercapnic resp failure, acute diastolic CHF exacerbation CXR w/ pulm venous congestion, small L pleural effusion, patchy consolidation b/ l. Concern for CAP, but pro-sarah is negative, RVP is negative, sputum cx negative ; pt has completed a 5 day course of abx. he was extubated on 06/23 (pt was intubated prior to transfer). MEJ=770. No prior cardiac history. TTE w/ EF of 60 -65%, indeterminate diastolic parameters, mild to mod TR, PAP of 70mmHg. Currently stable on 2L O2 at rest, no supplemental O2 need at baseline. Cardiology was consulted, they will arrange for him to follow up as an outpatient for possible stress test/heart cath. He was continued on travel pta lisinopril, and started on Coreg (in place of bisoprolol) aldactone and lasix. I would like him to have a BMP and Mg drawn at his appointment with his PCP on Thursday 06/28. He was not discharged on potassium supplementation Lethargy and confusion noted immediately upon awakening day of discharge quickly resolved Likely due to worsening hypercapnic respiratory failure and possible undiagnosed sleep apnea. ABG this am with pCO2 of 76 (prior values 45 and 49). Pt is currently compenstated. PH 7.35 with metabolic alkalosis. Pt did not receive any sedating meds. Pt was evaluated by pulm and given 500 mg of diamox. Recommend outpatient sleep study and repeat VBG at his appointment on Thursday Dysphagia METAL NEUTRALIZER consulted. Recommending nectar thick liquids. Cog eval w/ some evidence of cog delay. 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 Moving around can help prevent blood clots, lung infection (pneumonia ) and other problems. Gradually increasing the number of times you are up moving around will help you return to your normal activity level more quickly. Continue to increase the number of times you are up to the chair and walking daily to return to your normal activity level. Begin to work toward your normal activity level at discharge Report These Signs and Symptoms Please contact your doctor if you have any of the following symptoms: temperature higher than 100 degrees F, uncontrolled pain, difficulty breathing, chest pain, severe abdominal pain or headache Questions About Your Stay For questions or concerns regarding your hospital stay. Call [phone] Discharging attending physician: BENJA RODGERS [[id number]] Low Sodium Diet You will need to monitor the amount of sodium in your diet. Do not eat more than 2g (grams) or 2000mg (milligrams) per day. If you have questions regarding your diet at home, you may contact a dietitian at . Return Appointment Additional Discharge Instructions I would like Dr. Combs to draw a BMP to monitor your potassium, creatinine and bicarb. I would also like her to check a Magnesium and a VBG to look at your CO2 level. I think you would also benefit from a sleep study Current Discharge Medication List START taking these medications Details carvedilol (COREG) 3.125 mg tablet Take one tablet by mouth twice daily. Take with food. Qty: 180 tablet, Refills: 3 PRESCRIPTION TYPE: Normal furosemide (LASIX) 40 mg tablet Take one tablet by mouth daily. Qty: 90 tablet, Refills: 3 PRESCRIPTION TYPE: Normal spironolactone (ALDACTONE) 25 mg tablet Take one tablet by mouth daily. Take with food. Qty: 90 tablet, Refills: 3 PRESCRIPTION TYPE: Normal CONTINUE these medications which have NOT CHANGED Details latanoprost (XALATAN) 0.005 % ophthalmic solution Apply 1 drop to left eye as directed at bedtime daily. PRESCRIPTION TYPE: Historical Med lisinopril (PRINIVIL; ZESTRIL) 10 mg tablet Take 10 mg by mouth daily. PRESCRIPTION TYPE: Historical Med The following medications were removed from your list. This list includes medications discontinued this stay and those removed from your prior med list in our system amLODIPine (NORVASC) 10 mg tablet bisoprolol (ZEBETA) 10 mg tablet Chlorpheniramine-Phenylephrine (SINUS-ALLERGY (PHENYLEPHRINE)) 4-10 mg tab ibuprofen (ADVIL) 200 mg tablet Pending items needing follow up: Pt will need BMP, Mg and VBG on Thursday Signed: Benja Rodgers MD 06/26/2018 cc: Primary Care Physician: Suze Combs Referring physicians: Lia Foster MD Additional provider(s): in this encounter Discharge Instructions * Discharge Instr - Case Management - Constanza Mora RN - 06/26/2018 1:02 PM CDT Your home health agency is: [facility] Your oxygen company is: [employer] - the [place] office [address] [address] [address] Don't forget to call the number that was provided to you when you discharge to arrange delivery of your home oxygen! in this encounter Medications at Time of Discharge Medication Sig. Disp. Refills Start Date End Date carvedilol (COREG) 3.125 Take one tablet by mouth 180 tablet 3 2017 mg tablet twice daily. Take with food. furosemide (LASIX) 40 mg Take one tablet by mouth 90 tablet 3 2017 tablet daily. latanoprost (XALATAN) Apply 1 drop to left eye 0.005 % ophthalmic as directed at bedtime solution daily. lisinopril (PRINIVIL; Take 10 mg by mouth ZESTRIL) 10 mg tablet daily. montelukast (SINGULAIR) Take one tablet by mouth 90 tablet 3 2017 10 mg tablet at bedtime daily. spironolactone Take one tablet by mouth 90 tablet 3 06/27/2018 (ALDACTONE) 25 mg tablet daily. Take with food. as of this encounter Progress Notes * Josefa Cleaning RN - 06/27/2018 3:50 PM CDT Dorie York discharged on 06/27/2018. . Discharge instructions reviewed with patient and family. Valuables returned: Personal Items / Valuables: Eyeglasses/Contacts, Electronics, Valuables/ Belongings home with patient. Home medications: . Functional assessment at discharge complete: Yes . * Josefa Cleaning RN - 06/27/2018 10:24 AM CDT Formatting of this note may be different from the original. 06/27/18 0858 Pulmonary Right Hamilton Breath Sounds Fine Crackles Right Base Breath Sounds Decreased Left Hamilton Breath Sounds Fine crackles Left Base Breath Sounds Decreased Suction / Cough Spontaneous;NPC MD notified; no new orders at this time. Will continue to monitor * Benja Rodgers MD - 06/27/2018 8:18 AM CDT Formatting of this note may be different from the original. General Progress Note Name: Dorie York Today's Date: 06/27/2018 Admission Date: 06/22/2018 LOS: 5 days Assessment/Plan: Principal Problem: Acute respiratory failure with hypoxia and hypercapnia (HCC) Active Problems: Community acquired pneumonia of right lower lobe of lung (HCC) Acute pulmonary edema (HCC) Fluid overload Seizure disorder as sequela of cerebrovascular accident (HCC) Acute diastolic CHF (congestive heart failure) (HCC) Oropharyngeal dysphagia Mild cognitive impairment 83yoM w/ PMH of prostate Ca s/p XRT, SDH s/p fall w/ one resultant seizure, HTN admitted from OSH w/ acute hypoxic and hypercapnic resp failure 2/2 acute diastolic CHF exacerbation Acute hypoxic and hypercapnic resp failure, acute diastolic CHF exacerbation - CXR w/ pulm venous congestion, small L pleural effusion, patchy consolidation b/l - extubated on 06/23 (pt was intubated prior to transfer) - SAU=897 - no prior cardiac history - TTE w/ EF of 60-65%, indeterminate diastolic parameters, mild to mod TR, PAP of 70mmHg - currently stable on 2L-3L O2, no supplemental O2 need at baseline - concern for CAP, but pro-sarah is negative, RVP is negative, sputum cx negative ; plan for short 5 day course of abx - continue lisinopril, coreg, aldactone and lasix -strict I&O's, - cardiology consulted for further eval Lethargy and confusion noted immediately upon awakening 06/27, quickly resolved Worsening hypercapenic respiratory failure ABG 06/26 with pCO2 of 76 (prior values 45 and 49). Pt is currently compenstated. PH 7.35 with metabolic alkalosis-likely due to worsening hypercapnic respiratory failure. Evidence of metabolic compensation with CO2 of 42. VBG today with pC02 of 82 -no sediating meds given -possible underlying sleep apnea, oxygen therapy likely worsening hypercapenic respiratory failure -pulm consulted Dysphagia - METAL NEUTRALIZER consulted - recommending nectar thick liquids - cog eval w/ some evidence of cog delay - recommend home health w/ METAL NEUTRALIZER - likely has MCI, reports he is at baseline mentation HTN - cont ACEI, coreg and aldactone H/o SDH following mechanical fall - reports one related seizure, but no longer on seizure ppx d/t side effects FEN: no IVF, replace lytes PRN, cardiac diet Ppx: lovenox Code: Full Dispo: continue inpatient care. PT with high MDM due to multisystem nature of disease process and risk of decompensation with elevated pCO2 on VBG in the setting of recent intubation Subjective Dorie York is a 83 y.o. male. Pt reports he's feeling better. No further episodes of confusion. Reports that he feels about back to his baseline. Still has a cough, non productive. This that this is due to chronic sinusitis. Continues to feel short of breath with ambulation ROS: neg for fevers, chills, chest pain, palpitations Medications Scheduled Meds: carvedilol (COREG) tablet 3.125 mg 3.125 mg Oral BID enoxaparin (LOVENOX) syringe 40 mg 40 mg Subcutaneous QDAY(21) furosemide (LASIX) tablet 40 mg 40 mg Oral QDAY latanoprost (XALATAN) 0.005 % ophthalmic solution 1 drop 1 drop Left Eye QHS levoFLOXacin (LEVAQUIN) oral solution 750 mg 750 mg Oral ONCE lisinopril (PRINIVIL; ZESTRIL) tablet 10 mg 10 mg Oral QDAY potassium chloride SR (K-DUR) tablet 30 mEq 30 mEq Oral ONCE spironolactone (ALDACTONE) tablet 25 mg 25 mg Oral QDAY Continuous Infusions: PRN and Respiratory Meds: Objective Vital Signs: Last Filed Vital Signs: 24 Hour Range BP: 120/67 (06/27 753) Temp: 36.7 C (98.1 F) (06/27 753) Pulse: 91 (06/27 753) Respirations: 22 PER MINUTE (06/27 753) SpO2: 93 % (06/27 753) O2 Delivery: Nasal Cannula (06/27 753) BP: (120-143)/(54-68) Temp: [36.5 C (97.7 F)-37 C (98.6 F)] Pulse: [86-93] Respirations: [18 PER MINUTE-22 PER MINUTE] SpO2: [93 %-96 %] O2 Delivery: Nasal Cannula Vitals: 06/22/18 0100 06/22/18 1018 06/25/18 0300 Weight: 119.4 kg (263 lb 3.7 oz) 119.3 kg (263 lb) 119.2 kg (262 lb 12.6 oz) Intake/Output Summary: (Last 24 hours) Intake/Output Summary (Last 24 hours) at 06/27/18 0818 Last data filed at 06/27/18 0753 Gross per 24 hour Intake 240 ml Output 0 ml Net 240 ml Stool Occurrence: 0 Physical Exam General: Alert, cooperative, no distress, appears stated age. Head: Normocephalic, without obvious abnormality, atraumatic. Eyes: Conjunctivae/corneas clear. Lungs: CTAB, no rales, no wheezing. Heart: Tachy, reg rhythm, no MRG. Abdomen: Soft, non-tender. Bowel sounds normal. Extremities: 1+ b/l LE edema Pulses: 2+ radial pulses b/l Skin: Skin color, texture, turgor normal. No rashes or lesions. Lab Review Hematology: Lab Results Component Value Date HGB 12.6 06/27/2018 HCT 39.0 06/27/2018 PLTCT 141 06/27/2018 WBC 3.7 06/27/2018 NEUT 72 06/27/2018 ANC 2.70 06/27/2018 LYMPH 20 06/26/2018 ALC 0.50 06/27/2018 LUISA 13 06/27/2018 AMC 0.50 06/27/2018 ABC 0.00 06/27/2018 BASOPHILS 1 06/26/2018 MCV 105.7 06/27/2018 MCHC 32.3 06/27/2018 MPV 7.5 06/27/2018 RDW 14.1 06/27/2018 , Coagulation: Lab Results Component Value Date PTT 23.2 06/22/2018 INR 1.1 06/22/2018 , General Chemistry: Lab Results Component Value Date NA 140 06/27/2018 K 3.8 06/27/2018 CL 93 06/27/2018 GAP 5 06/27/2018 BUN 23 06/27/2018 CR 0.80 06/27/2018 GLU 103 06/27/2018 CA 8.7 06/27/2018 ALBUMIN 3.1 06/27/2018 OBSCA 0.98 06/22/2018 MG 1.8 06/27/2018 TOTBILI 0.6 06/27/2018 and Enzymes: Lab Results Component Value Date AST 15 06/27/2018 ALT 9 06/27/2018 ALKPHOS 46 06/27/2018 Point of Care Testing (Last 24 hours) Glucose: (!) 103 (06/27/18 0451) Radiology and other Diagnostics Review: Pertinent radiology reviewed. Benja Rodgers MD Pager [phone] * Josefa Cleaning RN - 06/26/2018 4:50 PM CDT Patient was to be discharged this shift pending VBG lab. Due to results of the VBG, MD encouraged the patient and family to stay for further testing. Patient agreed. Per MD order, discharge is on hold at this time. * Josefa Cleaning RN - 06/26/2018 2:59 PM CDT Pt did not take one time ordered dose of Levaquin this shift. See comment section in MAR * Carlos Harp RN - 06/26/2018 2:32 PM CDT IVT to bedside. Labs drawn from L AC with sono assist. Labeled and given to primary RN. * Lissy Muller - 06/26/2018 1:31 PM CDT PHYSICAL THERAPY MOBILITY NOTE Patient was mobilized today with the assistance of the P.T. mobility aide as part of the ongoing physical therapy plan of care. Mobility Progressive Mobility Level: Walk in room Distance Walked (feet): 20 ft Level of Assistance: Assist X1 Assistive Device: Walker Time Tolerated: 0-10 minutes Activity Limited By: Pain (At the lower back) Aide: Lissy Muller Date: 06/26/2018 * Benja Rodgers MD - 06/26/2018 8:18 AM CDT Formatting of this note may be different from the original. General Progress Note Name: Dorie York Today's Date: 06/26/2018 Admission Date: 06/22/2018 LOS: 4 days Assessment/Plan: Principal Problem: Acute respiratory failure with hypoxia and hypercapnia (HCC) Active Problems: Community acquired pneumonia of right lower lobe of lung (HCC) Acute pulmonary edema (HCC) Fluid overload Seizure disorder as sequela of cerebrovascular accident (HCC) Acute diastolic CHF (congestive heart failure) (HCC) Oropharyngeal dysphagia Mild cognitive impairment 83yoM w/ PMH of prostate Ca s/p XRT, SDH s/p fall w/ one resultant seizure, HTN admitted from OSH w/ acute hypoxic and hypercapnic resp failure 2/2 acute diastolic CHF exacerbation Acute hypoxic and hypercapnic resp failure, acute diastolic CHF exacerbation - CXR w/ pulm venous congestion, small L pleural effusion, patchy consolidation b/l - extubated on 06/23 (pt was intubated prior to transfer) - LCP=302 - no prior cardiac history - TTE w/ EF of 60-65%, indeterminate diastolic parameters, mild to mod TR, PAP of 70mmHg - currently stable on 2L O2, no supplemental O2 need at baseline - concern for CAP, but pro-sarah is negative, RVP is negative, sputum cx negative ; plan for short 5 day course of abx - recommend outpt stress test and possible L and RHC. Discussed that we could pursue this work up inpatient however pt strongly preferred to discharge home today and follow up with his PCP and outpatient cardiology - continue lisinopril, coreg, aldactone and lasix - Lethargy and confusion noted immediately upon awakening today, quickly resolved -likely due to worsening hypercapnic respiratory failure. ABG this am with pCO2 of 76 (prior values 45 and 49). Pt is currently compenstated. PH 7.35 with metabolic alkalosis -no sediating meds given -possible underlying sleep apnea -will repeat VBG, if CO2 is stable will DC today Dysphagia - METAL NEUTRALIZER consulted - recommending nectar thick liquids - cog eval w/ some evidence of cog delay - recommend home health w/ METAL NEUTRALIZER - likely has MCI, reports he is at baseline mentation HTN - cont ACEI H/o SDH following mechanical fall - reports one related seizure, but no longer on seizure ppx d/t side effects FEN: no IVF, replace lytes PRN, cardiac diet Ppx: lovenox Code: Full Dispo: will dc today if pCO2 is stable on repeat VBG. Pt counseled that if he discharges home and experiences any confusion, lethargy, shortness of breath or chest pain that he needs to seek medical care. He has a f/u appointment scheduled with his PCP on Thursday. I would like him to have a repeat BMP, MG and VBG drawn at that appointment. Subjective Dorie York is a 83 y.o. male. Pt was rapid responded this morning because he was lethargic upon awakening. Per and nurse mental status quickly returned to baseline. PCO2 was elevated. Pt reports that he feels well. Denies confusion , breathing improved. He is hopeful to DC home today. ROS: neg for fevers, chills, dyspnea, chest pain, palpitations Medications Scheduled Meds: carvedilol (COREG) tablet 3.125 mg 3.125 mg Oral BID enoxaparin (LOVENOX) syringe 40 mg 40 mg Subcutaneous QDAY(21) furosemide (LASIX) tablet 40 mg 40 mg Oral QDAY latanoprost (XALATAN) 0.005 % ophthalmic solution 1 drop 1 drop Left Eye QHS lisinopril (PRINIVIL; ZESTRIL) tablet 10 mg 10 mg Oral QDAY spironolactone (ALDACTONE) tablet 25 mg 25 mg Oral QDAY Continuous Infusions: PRN and Respiratory Meds: Objective Vital Signs: Last Filed Vital Signs: 24 Hour Range BP: 144/65 (06/26 658) Temp: 36.3 C (97.3 F) (06/26 658) Pulse: 80 (06/26 658) Respirations: 18 PER MINUTE (06/26 0536) SpO2: 94 % (06/26 658) O2 Delivery: Nasal Cannula (06/26 658) BP: (103-149)/(52-81) Temp: [36.3 C (97.3 F)-37 C (98.6 F)] Pulse: [80-93] Respirations: [18 PER MINUTE-20 PER MINUTE] SpO2: [94 %-98 %] O2 Delivery: Nasal Cannula Vitals: 06/22/18 0100 06/22/18 1018 06/25/18 0300 Weight: 119.4 kg (263 lb 3.7 oz) 119.3 kg (263 lb) 119.2 kg (262 lb 12.6 oz) Intake/Output Summary: (Last 24 hours) Intake/Output Summary (Last 24 hours) at 06/26/18 0818 Last data filed at 06/26/18 0646 Gross per 24 hour Intake 483 ml Output 200 ml Net 283 ml Stool Occurrence: 0 Physical Exam General: Alert, cooperative, no distress, appears stated age. Head: Normocephalic, without obvious abnormality, atraumatic. Eyes: Conjunctivae/corneas clear. Lungs: CTAB, no rales, no wheezing. Heart: Tachy, reg rhythm, no MRG. Abdomen: Soft, non-tender. Bowel sounds normal. Extremities: 1+ b/l LE edema Pulses: 2+ radial pulses b/l Skin: Skin color, texture, turgor normal. No rashes or lesions. Lab Review Hematology: Lab Results Component Value Date HGB 13.0 06/26/2018 HCT 38.9 06/26/2018 PLTCT 129 06/26/2018 WBC 3.9 06/26/2018 NEUT 79 06/25/2018 ANC 3.90 06/25/2018 ALC 0.50 06/25/2018 LUISA 9 06/25/2018 AMC 0.40 06/25/2018 ABC 0.00 06/25/2018 MCV 104.0 06/26/2018 MCHC 33.4 06/26/2018 MPV 7.6 06/26/2018 RDW 13.7 06/26/2018 , Coagulation: Lab Results Component Value Date PTT 23.2 06/22/2018 INR 1.1 06/22/2018 , General Chemistry: Lab Results Component Value Date NA 136 06/26/2018 K 3.7 06/26/2018 CL 95 06/26/2018 GAP 6 06/26/2018 BUN 25 06/26/2018 CR 0.73 06/26/2018 GLU 103 06/26/2018 CA 8.5 06/26/2018 ALBUMIN 3.0 06/26/2018 OBSCA 0.98 06/22/2018 MG 1.7 06/26/2018 TOTBILI 0.6 06/26/2018 and Enzymes: Lab Results Component Value Date AST 14 06/26/2018 ALT 5 06/26/2018 ALKPHOS 49 06/26/2018 Point of Care Testing (Last 24 hours) Glucose: (!) 103 (06/26/18 0636) Radiology and other Diagnostics Review: Pertinent radiology reviewed. Benja Rodgers MD Pager [phone] * Katie Michelle DO - 06/26/2018 7:03 AM CDT Rapid Response IM Progress Note Date: 06/26/2018 Time: 7:03 AM Patient: Dorie York Attending: Tien Harper MD Service: [facility] 4337 Admission Date: 06/22/2018 LOS: 4 days A Rapid Response was called around 0650 due to increased confusion/lethargy from baseline and CO2 of 76. CO2 has been around 40s. He has been compensated with HOC3 35-40 on AM labs. On exam he is alert and oriented and per much improved from about 90mins prior. He has mild diffuse wheezing on exam. CV: RRR EKG okay Will Repeat VBG around 0800 to monitor CO2. Discussed with day team as well. Katie Michelle DO * Migdalia Leong RN - 06/26/2018 5:53 AM CDT 0536 Upon entering room, patient lethargic, difficulty keeping eyes open. Noticeably less oriented than earlier in shift. Patient responding to questions but not appropriately. Vitals WNL. MPG paged and notified. [phone] Spoke with DO Michelle. ABG ordered. * Debbie Burt, LACI - 06/25/2018 5:11 PM CDT Medication Education Dorie York accepted counseling and was engaged. he verbalized understanding. The following medications were discussed: Lasix and coreg Where indicated, the patient was provided with additional medication and/or disease-state information. All patient questions were answered and patient acknowledged understanding of the medications, side effects and other pertinent medication information. Follow up should occur daily. Continue to address: certain medications Debbie Burt RN * Hazel Mavis - 06/25/2018 2:51 PM CDT OCCUPATIONAL THERAPY ASSESSMENT NOTE Patient Name: Dorie York Room/Bed: HO7808/01 Admitting Diagnosis: Resp. Failure Mobility Progressive Mobility Level: Walk in room Distance Walked (feet): 20 ft Level of Assistance: Assist X1 Assistive Device: Walker Time Tolerated: 11-30 minutes Activity Limited By: Fatigue;Weakness Subjective Pertinent Dx per Physician: PMH significant for HTN, prostate CA, L knee arthroplasty, and brain bleed/seizure (not currently on seizures meds). Patient transferred fro OSH due to acute hypoxic and hypercapnic respiratory failure 2/ 2 pulmonary edema and possible CAP. Patient extubated 06/23. Precautions: Falls;O2 Requirement (2lpm at rest; 6lpm with activity) Pain / Complaints: Patient has no c/o pain;Patient agrees to participate in therapy Objective Psychosocial Status: Willing and Cooperative to Participate Home Living Type of Home: Apartment Home Layout: One Level (No stairs) Bathroom Shower / Tub: Walk-in Shower Bathroom Toilet: Raised Bathroom Equipment: Grab Bars in Shower;Shower Chair;Grab Bars Around Toilet Home Equipment: Walker Comment: Pt states he and his recently moved to an apartment. Prior Function Level Of [place]: Independent with ADLs and functional transfers Lives With: Spouse Receives Help From: None Needed ADL's Where Assessed: In Bathroom LE Dressing Assist: Stand By Assist (doff/don pants for brief change) LE Dressing Deficits: Supervision/Safety;Increased Time To Complete Toileting Assist: Stand By Assist Toileting Deficits: Supervision/Safety;Increased Time To Complete;Grab Bar Use Functional Transfer Assist: Minimal Assist (from bedside chair; SBA from toilet) Functional Transfer Deficits: Steadying;Verbal Cueing;Supervision/Safety; Increased Time to Complete Comment: Pt seated in bedside chair on OT arrival. He stood and ambulated to the bathroom for toileting. Initially planned to ambulate more but pt reported fatigue so returned to bedside chair. Cognition Cognition Comment: Pt was somewhat confused. He stated that his was in her early 50s but they have been for 41 years. He also stated he was discharging tonight and RN reports they discussed that he is not leaving yet. He may not be a reliable historian. Education Persons Educated: Patient Barriers To Learning: None Noted Teaching Methods: Verbal Instruction Patient Response: Verbalized Understanding Topics: Role of OT, Goals for Therapy;ADL Compensatory Techniques Goal Formulation: With Patient Assessment Assessment: Decreased ADL Status;Decreased Endurance;Decreased Safe/Judg during ADL;Decreased Self-Care Trans Prognosis: Good;w/Cont OT s/p Acute Discharge Patient's activity tolerance is significantly impaired. Will continue to progress this with ADLs. AM-PAC 6 Clicks Daily Activity Inpatient Putting on and taking off regular lower body clothes?: A Little Bathing (Including washing, rinsing, drying): A Little Toileting, which includes using toilet, bedpan, or urinal: A Little Putting on and taking off regular upper body clothing: None Taking care of personal grooming such as brushing teeth: None Eating meals?: None Daily Activity Raw Score: 21 Standardized (t-scale) score: 44.27 CMS 0-100% Score: 32.79 CMS G Code Modifier: CJ Plan OT Frequency: 5x/week OT Plan for Next Visit: grooming at the sink, LB dressing (socks) ADL Goals Patient Will Perform Grooming: Standing at Sink;w/ Stand By Assist Patient Will Perform LE Dressing: w/ Stand By Assist Functional Transfer Goals Pt Will Perform All Functional Transfers: w/ Stand By Assist OT Discharge Recommendations OT Discharge Recommendations: Home with Home Health, Home with consistent supervision Equipment Recommendations: Patient owns necessary equipment Recommend ongoing assistance for: Safety concerns, Bathing, Household tasks G-Codes: Self-care G8987 Current Status: 20-39% Impairment [id number] Goal Status: 1-19% Impairment Based on above evaluation and clinical judgment. Therapist: REGINO Gentile/Karissa [phone] Date: 06/25/2018 * Adali Pugh, RT - 06/25/2018 2:21 PM CDT RT Exercise Oximetry Note NAME:Dorie York :1935 AGE: 83 y.o. ADMISSION DATE: 06/22/2018 DAYS ADMITTED: LOS: 3 days Date performed: 06/25/2018 Time performed: 14:05 Time walked: 10 minutes At Rest While Awake Results Room air at rest while awake: SpO2=89% Oxygen dose required at rest while awake: 0 lpm with resulting SpO2 89% With Exercise Results: Room air SpO2 with exercise, if needed: 85% Oxygen required with exercise: 6 lpm with resulting SpO2 93% SpO2 at 1 liters per minute=87% SpO2 at 2 liters per minute=88% SpO2 at 3 liters per minute=90% (walked about 75 feet and desaturation to 87%) SpO2 at 4 liters per minute=88% If required oxygen dose with exercise is greater than 4 lpm: SpO2 @ 6 lpm=93% Comments: Walked patient with physical therapy. Therapist: RT Rolando Valencia Angela, PT - 06/25/2018 2:00 PM CDT PHYSICAL THERAPY PROGRESS NOTE MOBILITY: Progressive Mobility Level: Walk in room Distance Walked (feet): 20 ft Level of Assistance: Assist X1 Assistive Device: Walker Time Tolerated: 11-30 minutes Activity Limited By: Fatigue;Weakness SUBJECTIVE: Significant hospital events: PMH significant for HTN, prostate CA, L knee arthroplasty, and brain bleed/seizure (not currently on seizures meds). Patient transferred fro OSH due to acute hypoxic and hypercapnic respiratory failure 2/ 2 pulmonary edema and possible CAP. Patient extubated 06/23. Mental / Cognitive Status: Alert;Oriented;Cooperative;Follows Commands Persons Present: (respiratory therapist (for exercise oximetry test)) Pain Interventions: Patient agrees to participate in therapy;Treatment altered to patient's pain tolerance;Patient assisted into position of comfort Comments: 2LO2NC at rest, 6LO2 NC with actiivty Comments: Pt reports he is not feeling well today-states he feels as if he has caught a cold. Ambulation Assist: Independent Mobility in Community with Device Patient Owned Equipment: Roller Walker;Single Point Cane Home Situation: Lives with Family Type of Home: House Entry Stairs: (5 steps to enter ) In-Home Stairs: Able to Live on One Level STRENGTH: Overall Strength: Generalized Weakness POSTURE/NEURO: Posture: Rounded Shoulders;Flexed Trunk BED MOBILITY/TRANSFERS: Comments: Pt received sitting in bedside chair. Transfer Type: Sit to/from Stand Transfer: Assistance Level: To/From;Bed Side Chair;Minimal Assist Transfer: Assistive Device: Roller Walker Transfers: Type Of Assistance: Verbal Cues;For Strength Deficit Other Transfer Type: Sit to/from Stand Other Transfer: Assistance Level: To/From;Toilet;Minimal Assist Other Transfer: Assistive Device: Roller Walker (and grab bar) Other Transfer: Type Of Assistance: Verbal Cues;For Strength Deficit End Of Activity Status: Up in Chair;Nursing Notified;Instructed Patient to Request Assist with Mobility;Instructed Patient to Use Call Light (Pt reclined. ) Comments: Pt requires cues to turn around and back up fully to chair prior to sitting down. BALANCE: Sitting Balance: Standby Assist Standing Balance: Dynamic Standing Balance;2 UE support;Standby Assist;Minimal Assist (with RW support) GAIT: Gait Distance: 130 feet (with 1 standing rest break) Gait: Assistance Level: (close CGA) Gait: Assistive Device: Roller Walker Gait: Descriptors: Decreased heel strike RLE;Decreased heel strike LLE;Forward trunk flexion;Decreased step length Comments: Pt ambulates with significant trunk flexion. Activity Limited By: Complaint of Fatigue;Weakness EDUCATION: Persons Educated: Patient Patient Barriers To Learning: (slight impulsivity) Interventions: Repetition of Instructions Teaching Methods: Verbal Instruction;Demonstration Patient Response: Verbalized Understanding;Return Demonstration;More Instruction Required Topics: Plan/Goals of PT Interventions;Use of Assistive Device/Orthosis; Mobility Progression;Safety Awareness;Up with Assist Only;Importance of Increasing Activity;Ambulate With Nursing;Recommend Continued Therapy ASSESSMENT/PROGRESS: Impaired Mobility Due To: Safety Concerns;Deconditioning;Medical Status Limitation Impaired Strength Due To: Deconditioning Assessment/Progress: Should Improve w/ Continued PT AM-PAC 6 Clicks Basic Mobility Inpatient Turning from your back to your side while in a flat bed without using bed rails : A Little Moving from lying on your back to sitting on the side of a flatbed without using bedrails : A Little Moving to and from a bed to a chair (including a wheelchair): A Little Standing up from a chair using your arms (e.g. wheelchair, or bedside chair): A Little To walk in hospital room: A Little Climbing 3-5 steps with a railing: A Lot Raw Score: 17 Standardized (T-scale) Score: 39.67 Basic Mobility CMS 0-100%: 43.83 CMS G Code Modifier for Basic Mobility: CK GOALS: Goal Formulation: With Patient Pt Will Go Supine To/From Sit: w/ Stand By Assist Pt Will Transfer Bed/Chair: w/ Stand By Assist Pt Will Transfer Sit to Stand: w/ Stand By Assist Pt Will Ambulate: Greater than 200 Feet, w/ Walker, w/ Stand By Assist Pt Will Go Up / Down Stairs: 3-5 Stairs, w/ Stand By Assist PLAN: Treatment Interventions: Mobility Training;Strengthening;Balance Activities; Endurance Training Plan Frequency: 5 Days per Week PT Plan for Next Visit: increase gait distance, stair gait soon RECOMMENDATIONS: PT Discharge Recommendations: Home with Assistance;Home Health Setting ( anticipated) Equipment Recommendations: Patient owns necessary equipment Recommend ongoing assistance for: In and out of house;Transfers;Stairs;Safety concerns Therapist: Margot Cleaning, PT Date: 06/25/2018 * Mini Gallo MA,CCC-[facility] [facility]ER - 06/25/2018 10:59 AM CDT SPEECH-LANGUAGE PATHOLOGY DAILY TREATMENT NOTE Patient seen 1x this date. Documentation reflects all daily treatment sessions. SUMMARY OF THERAPY SESSION: Follow up this date for ongoing dysphagia and cognitive management completed with spouse present. Overview of ongoing diet recommendations upon discharge completed. Per spouse report, oropharyngeal exercises completed 10 repetitions each of each exercise, including: Lindy Maneuver, effortful swallow, lingual protrustion/hold, and pitch glides. Clinician initiated memory strategies and reviewed with handout provided. Clinician encouraged ongoing speech Home Health services upon discharge. Please see further details below. RECOMMENDATIONS: 1. Continue regular solids and nectar thick liquids as the safest and least restricted diet with utilization of swallow strategies (small bites/sips, slow rate, upright at 90 degree angle, multiple swallows per bolus). 2. Continue oropharyngeal exercises 10x repetitions each 2-3x/day (handout provided). 3. Medications as tolerated by pt. 4. Excellent oral care to reduce risk of aspirated bacteria from oral cavity (2- 3x/day). 5. Consistent supervision recommended upon discharge as anticipate patient's impaired memory & attention will potentially impact their safety. 6. This department will continue to follow for ongoing dysphagia management and to address cognitive communicative changes. 7. Pt would likely benefit from ongoing speech services at the next level of care. Goal : Pt will participate in oropharyngeal exercises with 90% accuracy when given mild cues. Not Directly Addressed Comment: Per spouse report, oropharyngeal exercises completed 10 repetitions each of each exercise, including: Lindy Maneuver, effortful swallow, lingual protrustion/hold, and pitch glides. Continue to address this goal Goal : Pt will tolerate regular solids and nectar thick liquids with <5% s/s aspiration and free of pulmonary status changes. Met Comment: Per staff report, no acute pulmonary changes or difficulty swallowing noted with current consistencies. Pt received and swallowed pills with no difficulty this AM as stated by RN. Continue to address this goal Goal: Pt will participate in PO trials for diet advancement purposes with <5% s/ s aspiration and free of pulmonary status changes. Not Addressed Comment: Did not address 2* memory strategy review. Continue to address this goal Goal: Pt will be A/O x4 when given mild cues. Not Met Comment: Pt A/O x1 to self. Encouraged utilization of orientation board. Continue to address this goal Goal: Pt will recall 2 items on a 5 minute delay when given mild cues. Not Addressed Comment: Did not address 2* memory strategy review and overview of diet modifications/oropharyngeal exercises. Continue to address this goal Goal: Pt will recall 3/5 memory strategies when given moderate cues. Not Addressed Comment: Did not address 2* memory strategy review and overview of diet modifications/oropharyngeal exercises. Continue to address this goal PLAN / RECOMMENDATIONS: Continue treatment 3-5x/week Therapist: Mini Gallo MA,CCC-[employer]ER Voalte [phone] pager [phone] Date: 06/25/2018 * Tien Harper MD - 06/25/2018 10:44 AM CDT Formatting of this note may be different from the original. General Progress Note Name: Dorie York Today's Date: 06/25/2018 Admission Date: 06/22/2018 LOS: 3 days Assessment/Plan: Principal Problem: Acute respiratory failure with hypoxia and hypercapnia (HCC) Active Problems: Community acquired pneumonia of right lower lobe of lung (HCC) Acute pulmonary edema (HCC) Fluid overload Seizure disorder as sequela of cerebrovascular accident (HCC) Acute diastolic CHF (congestive heart failure) (HCC) Oropharyngeal dysphagia Mild cognitive impairment 83yoM w/ PMH of prostate Ca s/p XRT, SDH s/p fall w/ one resultant seizure, HTN admitted from OSH w/ acute hypoxic and hypercapnic resp failure 2/2 acute diastolic CHF exacerbation Changes made to today's assessment and plan are indicated in bold. Acute hypoxic and hypercapnic resp failure, acute diastolic CHF exacerbation - CXR w/ pulm venous congestion, small L pleural effusion, patchy consolidation b/l - extubated on 06/23 - ONQ=847 - no prior cardiac history - TTE w/ EF of 60-65%, indeterminate diastolic parameters, mild to mod TR, PAP of 70mmHg - currently stable on 2L O2, no supplemental O2 need at baseline - cont aldactone, will add on 40mg lasix Qday - recommend outpt stress test and possible L and RHC - will get ex ox today in anticipation of discharge - start on low dose Coreg for GDMT, if BP can tolerate prior to discharge would benefit from low dose ACEI or ARB as well - concern for CAP, but pro-sarah is negative, RVP is negative, sputum cx negative ; plan for short 5 day course of abx Dysphagia - METAL NEUTRALIZER consulted - recommending nectar thick liquids - cog eval w/ some evidence of cog delay - recommend home health w/ [facility]AL NEUTRALIZER - likely has [facility], reports he is at baseline mentation HTN - cont ACEI H/o SDH following mechanical fall - reports one related seizure, but no longer on seizure ppx d/t side effects FEN: no IVF, replace lytes PRN, cardiac diet Ppx: lovenox Code: Full Dispo: cont inpt admit, will add PO lasix to diuretic regimen today. Will plan for ex ox today. Try to wean O2 further. has arranged PCP f/u for Thursday. SW working on HH orders. Subjective Dorie York is a 83 y.o. male. Patient w/ ongoing dyspnea this morning. Cochrane well until he moved from the bed to the chair. Oxygen is making him feel "congested". His reports his memory has been worse since they moved from [place] to [place]. He denies any cardiac history before. Denies every choking w/ swallowing or having difficulty w/ swallowing. ROS: neg for fevers, chills, dyspnea, chest pain, palpitations Medications Scheduled Meds: enoxaparin (LOVENOX) syringe 40 mg 40 mg Subcutaneous QDAY(21) furosemide (LASIX) tablet 40 mg 40 mg Oral QDAY latanoprost (XALATAN) 0.005 % ophthalmic solution 1 drop 1 drop Left Eye QHS levofloxacin (LEVAQUIN) 750 mg/150 mL IVPB 750 mg Intravenous Q24H* lisinopril (PRINIVIL; ZESTRIL) tablet 10 mg 10 mg Oral QDAY spironolactone (ALDACTONE) tablet 25 mg 25 mg Oral QDAY Continuous Infusions: PRN and Respiratory Meds: Objective Vital Signs: Last Filed Vital Signs: 24 Hour Range BP: 104/51 (06/25 659) Temp: 36.3 C (97.3 F) (06/25 659) Pulse: 98 (06/25 659) Respirations: 20 PER MINUTE (06/25 659) SpO2: 95 % (06/25 659) O2 Delivery: Nasal Cannula (06/25 659) SpO2 Pulse: 85 (06/24 1119) BP: (104-142)/(51-83) Temp: [36.3 C (97.3 F)-36.7 C (98 F)] Pulse: [72-98] Respirations: [18 PER MINUTE-21 PER MINUTE] SpO2: [92 %-98 %] O2 Delivery: Nasal Cannula Vitals: 06/22/18 0100 06/22/18 1018 06/25/18 0300 Weight: 119.4 kg (263 lb 3.7 oz) 119.3 kg (263 lb) 119.2 kg (262 lb 12.6 oz) Intake/Output Summary: (Last 24 hours) Intake/Output Summary (Last 24 hours) at 06/25/18 1044 Last data filed at 06/25/18 0659 Gross per 24 hour Intake 193 ml Output 300 ml Net -107 ml Physical Exam General: Alert, cooperative, no distress, appears stated age. Head: Normocephalic, without obvious abnormality, atraumatic. Eyes: Conjunctivae/corneas clear. Lungs: CTAB, no rales, no wheezing. Heart: Tachy, reg rhythm, no MRG. Abdomen: Soft, non-tender. Bowel sounds normal. Extremities: 1+ b/l LE edema Pulses: 2+ radial pulses b/l Skin: Skin color, texture, turgor normal. No rashes or lesions. Lab Review Hematology: Lab Results Component Value Date HGB 12.8 06/25/2018 HCT 39.5 06/25/2018 PLTCT 149 06/25/2018 WBC 5.0 06/25/2018 NEUT 79 06/25/2018 ANC 3.90 06/25/2018 ALC 0.50 06/25/2018 LUISA 9 06/25/2018 AMC 0.40 06/25/2018 ABC 0.00 06/25/2018 MCV 106.3 06/25/2018 MCHC 32.3 06/25/2018 MPV 7.4 06/25/2018 RDW 14.4 06/25/2018 , Coagulation: Lab Results Component Value Date PTT 23.2 06/22/2018 INR 1.1 06/22/2018 , General Chemistry: Lab Results Component Value Date NA 138 06/25/2018 K 3.7 06/25/2018 CL 95 06/25/2018 GAP 3 06/25/2018 BUN 28 06/25/2018 CR 0.87 06/25/2018 GLU 103 06/25/2018 CA 8.7 06/25/2018 ALBUMIN 3.1 06/25/2018 OBSCA 0.98 06/22/2018 MG 2.0 06/25/2018 TOTBILI 0.6 06/25/2018 and Enzymes: Lab Results Component Value Date AST 12 06/25/2018 ALT 6 06/25/2018 ALKPHOS 54 06/25/2018 Point of Care Testing (Last 24 hours) Glucose: (!) 103 (06/25/18 0707) Radiology and other Diagnostics Review: Pertinent radiology reviewed. Tien Harper MD Pager [phone] * Mini Gallo MA,CCC-[employer] NE[employer]ER - 06/24/2018 3:39 PM CDT SPEECH-LANGUAGE PATHOLOGY DAILY TREATMENT NOTE AND COGNITIVE EVALUATION Patient seen 1x this date. Documentation reflects all daily treatment sessions. SUMMARY OF EVALUATION AND THERAPY SESSION: Follow up this date for ongoing dysphagia management and cognitive assessment completed with spouse present. Overview of ongoing diet recommendations with initiation of oropharyngeal exercises completed. Pt completed x1 rep of each exercise, including: Lindy Maneuver, effortful swallow, lingual protrustion/hold, and pitch glides. Furthermore, Marc Cognitive Assessment (MOCA) completed this date. Pt scored 12/30, which indicates a moderate cognitive impairment. Areas of difficulty included: visuospatial/executive functioning, naming, immediate and delayed recall, attention, language, and orientation. Spouse present at time of evaluation. Please see further details below. RECOMMENDATIONS: 1. Continue regular solids and nectar thick liquids as the safest and least restricted diet with utilization of swallow strategies (small bites/sips, slow rate, upright at 90 degree angle, multiple swallows per bolus). 2. Initiate oropharyngeal exercises 10x repetitions each 2-3x/day (handout provided). 3. Medications as tolerated by pt. 4. Excellent oral care to reduce risk of aspirated bacteria from oral cavity (2- 3x/day). 5. Consistent supervision recommended upon discharge as anticipate patient's impaired memory & attention will potentially impact their safety. 6. This department will continue to follow for ongoing dysphagia management and to address cognitive communicative changes. DYSPHAGIA TREATMENT Goal : Pt will participate in oropharyngeal exercises with 90% accuracy when given mild cues. Partially Met Comment: Clinician reviewed oropharyngeal exercises and completed x1 repetition with mild visual cueing. Encouraged to complete x10 repetitions 2-3x/daily. Continue to address this goal Goal : Pt will tolerate regular solids and nectar thick liquids with <5% s/s aspiration and free of pulmonary status changes. Met Comment: Per staff report, no acute pulmonary changes or difficulty swallowing noted with current consistencies. Continue to address this goal Goal: Pt will participate in PO trials for diet advancement purposes with <5% s/ s aspiration and free of pulmonary status changes. Not Addressed Comment: Did not address 2* cognitive evaluation and oropharyngeal exercise initiation. Continue to address this goal COGNITIVE EVALUATION PRAGMATICS Comments*: Reduced eye contact and flat affect for the situation. Frequent deflection and denial with incorrect responses. BEHAVIOR Comments*: Increased processing time and need for repetition of information noted. AUDITORY COMPREHENSION Comments*: No focal language deficits noted. ORIENTATION Comments*: A & O x1 to self Verbal Problem Solving Comments: Adequate problem solving in emergency situations. Pt able to recall emergency numbers and sequence appropriate steps with minimal cueing. MOCA[place] Cognitive Assessment Visuospatial/executive: 3/5 Namin/3 Memory/Delayed Recall: 2/5; increased accuracy to 4/5 with categorical cues and 5/5 with binary choices. Attention: 10/20 Language: 0/3 Abstraction: 2 Orientation: 09/19 Objective* Relevant Med Background: Pt is an 83 y/o M with PMH significant forHTN, prostate CA, Lknee arthroplasty, and brain bleed/seizure (not currently on seizures meds). He developed dyspnea and lower extremityswelling since Thursday; athis PCP'soffice 10/8he was found to have O2 sat 50%. He was transferred to ER at [facility], were he was found to have acute hypoxic andhypercapnic respiratory failure 2/2pulmonary edema and possible CAP. There was also concern of possible seizure around that time. Eventually he was intubated and started on MV, then[facility] to [facility]. Intubated 06/21-. Hearing: Hard of Hearing - R, Hard of Hearing - L Lives With: Spouse Receives Help From: None Needed Psychosocial Status: Willing and Cooperative to Participate Persons Present: Spouse Subjective* Pain: Patient has no complaint of pain Pain Level Current*: No pain Feeding Tube Present During Eval: None Education* Persons Educated: Patient Barriers To Learning: Cognitive Impairment Interventions: Repetition of Instructions Teaching Methods: Verbal Topics: Memory Patient Response: Verbalized Understanding Goal Formulation: With Patient Cognitive Goals* Goal: Pt will be A/O x4 when given mild cues. Goal: Pt will recall 2 items on a 5 minute delay when given mild cues. Goal: Pt will recall 3/5 memory strategies when given moderate cues. G-Codes:Memory G [id number] Current Status: 60-79% Impairment G 9169 Goal Status: 40-59% Impairment Based on above evaluation and clinical judgment. PLAN / RECOMMENDATIONS: Continue treatment 3-5x/week Therapist: Mini Gallo MA,CCC-[employer] NE[employer]AL[employer]ER Voalte [phone] pager [phone] Date: 06/24/2018 * Micaela Perez RN - 06/24/2018 12:30 PM CDT .Patient arrived to room # (9096*) via wheelchair accompanied by RN. Patient transferred to the bed with assistance. Bedside safety checks completed. Initial patient assessment completed, refer to flowsheet for details. Admission skin assessment completed by: Micaela Perez RN & Karen Jerome RN Pressure Injury Present on Hospital Admission (within 24 hours): No 1. Occiput: No 2. Ear: No 3. Scapula: No 4. Spinous Process: No 5. Shoulder: No 6. Elbow: No 7. Iliac Crest: No 8. Sacrum/Coccyx: No 9. Ischial Tuberosity: No 10. Trochanter: No 11. Knee: No 12. Malleolus: No 13. Heel: No 14. Toes: No 15. Assessed for device associated injury Yes 16. Nursing Nutrition Assessment Completed Yes See Doc Flowsheet for additional wound details. INTERVENTIONS: * Cecelia Rascon, PT - 06/24/2018 10:37 AM CDT PHYSICAL THERAPY PROGRESS NOTE MOBILITY: Mobility Progressive Mobility Level: Walk in hallway Distance Walked (feet): 100 ft Level of Assistance: Assist X1 Assistive Device: Walker Time Tolerated: 11-30 minutes Activity Limited By: Pain (B ankle, baseline issue) SUBJECTIVE: Subjective Significant hospital events: PMH significant for HTN, prostate CA, L knee arthroplasty, and brain bleed/seizure (not currently on seizures meds). Patient transferred fro OSH due to acute hypoxic and hypercapnic respiratory failure 2/ 2 pulmonary edema and possible CAP. Patient extubated 06/23. Mental / Cognitive Status: Alert;Oriented;Cooperative Persons Present: Spouse Pain: Patient complains of pain;Patient does not rate pain Pain Location: Bilateral;Ankle Pain Interventions: Patient agrees to participate in therapy;Treatment altered to patient's pain tolerance Comments: Patient on 3L O2 via nasal cannula. Ambulation Assist: Independent Mobility in Community with Device Patient Owned Equipment: Roller Walker;Single Point Cane Home Situation: Lives with Family Type of Home: House Entry Stairs: 3-5 Stairs;Rail on 1 Side (5 steps to enter ) In-Home Stairs: Able to Live on One Level BED MOBILITY/TRANSFERS: Bed Mobility/Transfers Comments: Patient up in chair at start of session. Transfer Type: Sit to/from Stand Transfer: Assistance Level: To/From;Bed Side Chair;Minimal Assist Transfer: Assistive Device: Roller Walker Transfers: Type Of Assistance: Verbal Cues;For Safety Considerations End Of Activity Status: Up in Chair;Nursing Notified;Instructed Patient to Request Assist with Mobility;Instructed Patient to Use Call Light GAIT: Gait Gait Distance: 100 feet Gait: Assistance Level: Minimal Assist Gait: Assistive Device: Roller Walker Gait: Descriptors: Pace: Slow;Decreased step length;Forward trunk flexion;No balance loss Activity Limited By: Complaint of Pain (B ankle pain) Comments: Impulsivity improved this date. EDUCATION: Education Persons Educated: Patient Patient Barriers To Learning: Cognitive Deficits (?, improved) Interventions: Repetition of Instructions Teaching Methods: Verbal Instruction Patient Response: Verbalized Understanding;More Instruction Required Topics: Plan/Goals of PT Interventions;Mobility Progression;Use of Assistive Device/Orthosis;Up with Assist Only;Importance of Increasing Activity;Safety Awareness ASSESSMENT/PROGRESS: Assessment/Progress Impaired Mobility Due To: Decreased Activity Tolerance;Deconditioning Assessment/Progress: Should Improve w/ Continued PT Comments: Patient mobility improved. Expect patient to contrinue ot make improvements. AM-PAC 6 Clicks Basic Mobility Inpatient Turning from your back to your side while in a flat bed without using bed rails : A Little Moving from lying on your back to sitting on the side of a flatbed without using bedrails : A Little Moving to and from a bed to a chair (including a wheelchair): A Little Standing up from a chair using your arms (e.g. wheelchair, or bedside chair): A Little To walk in hospital room: A Little Climbing 3-5 steps with a railing: A Lot Raw Score: 17 Standardized (T-scale) Score: 39.67 Basic Mobility CMS 0-100%: 43.83 CMS G Code Modifier for Basic Mobility: CK GOALS: Goals Goal Formulation: With Patient Pt Will Go Supine To/From Sit: w/ Stand By Assist Pt Will Transfer Bed/Chair: w/ Stand By Assist Pt Will Transfer Sit to Stand: w/ Stand By Assist Pt Will Ambulate: Greater than 200 Feet, w/ Walker, w/ Stand By Assist Pt Will Go Up / Down Stairs: 3-5 Stairs, w/ Stand By Assist PLAN: Plan Treatment Interventions: Mobility Training;Strengthening;Balance Activities Plan Frequency: 5 Days per Week PT Plan for Next Visit: Stairs next session. Increase ambulation. P.T. mobility aide to assist with ongoing mobilization and exercise per instructions of licensed physical therapy staff. RECOMMENDATIONS: PT Discharge Recommendations PT Discharge Recommendations: Home with Assistance;Home Health Setting ( anticipated) Equipment Recommendations: Patient owns necessary equipment Therapist: Cecelia Rascon PT, DPT Date: 06/24/2018 * Tracy Myrick RN - 06/24/2018 10:18 AM CDT 0730 Report received and care assumed at this time. Bedside safety check complete with security shift manager RN. 1g Mag replaced. Patient alert, oriented x 4 with no complaints of pain. Displays intermittent confusion. VSS on tele, 3lpm NC. IS at bedside & instructed via teach back method. ICU assessment complete, please see doc flow. No concerns at this time. Will continue to monitor closely. 0930 Med-surg status. at bedside. Updated on POC & all questions answered. * Dwayne Myers MD - 06/24/2018 5:57 AM CDT Formatting of this note may be different from the original. Pulmonary / Critical Care Progress Note Dorie Yrok Today's Date: 06/24/2018 Admission Date: 06/22/2018 LOS: 2 days Principal Problem: Acute respiratory failure with hypoxia and hypercapnia (HCC) Active Problems: Community acquired pneumonia of right lower lobe of lung (HCC) Acute pulmonary edema (HCC) Fluid overload Seizure (HCC) Acute encephalopathy Brief Hospital Course: Dorie York is a 83 y/o male with PMH significant for HTN, prostate CA, L knee arthroplasty, and brain bleed/seizure (not currently on seizures meds). He developed dyspnea and lower extremity swelling since Thursday; at his PCP's office 06/21 he was found to have O2 sat 50%. He was transferred to ER at [facility], were he was found to have acute hypoxic and hypercapnic respiratory failure 2/2 pulmonary edema and possible CAP. There was also concern of possible seizure around that time. Eventually he was intubated and started on MV, then transferred to [facility]. Improvement seen with diuresis; will continue w/ PO spironolactone, which is a new medicine for him. Narrowed abx to levaquin only. Successfully liberated from ventilator on 06/23. Stable for transfer to floor. Assessment/Plan: NEURO Acute Encephalopathy (resolved), ? Seizure - hx of brain injury/bleed and seizures ~ 2 years ago (not on anticonvulsants as he stopped taking them) - possible seizure in ER, most likely related to his respiratory failure - CT head: no acute intracranial process - no seizure activity seen since arrival to [facility] - pt awake and alert; does have periods of confusion PULM Acute Hypoxic and Hypercapnic Respiratory Failure (improved) - 2/2 pulmonary edema +/- CAP - intubated at OSH - lasix 40 mg IV at OSH --> net - 2 L - lasix 40 mg IV followed by 20 mg IV on 06/22 --> net - 1 L - lasix 40 mg IV x 1 on 06/23 --> net - 1.3 L (net - 4.3 L for admit) - ID w/u and tx as below - extubated 06/23; currently on 3 L/NC, O2 sat 95% PLAN - continue diuresis, but switch to PO -- will add spironolactone 25 mg daily CV HFpEF - no hx of heart disease reported - EKG: no ischemic changes - troponin 0.04 x 2 - BNP 370 - echo 06/22: technically difficulty study; LVEF 60-65% w/ no regional wall motion abnormalities; diastolic parameters indeterminate; RV dilated with mildly impaired function; mild to moderate TR; pulmonary HTN w/ peak pulmonary pressure 70 mmHg; no pericardial effusion PLAN - diuresis as above Hx HTN - monitor shows SR, rate 70s-80s - SBP 90s-110s - resume 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 - hold other NEIGHBORHOOD PLANNER BP meds for now (amlodipine 10 mg daily, bisoprolol 10 mg daily ) RENAL - Cr 0.85 this AM - I/O: net - 1.3 L last 24 hrs w/ 1.6 L UOP (net - 4.3 L for admit) ENDO - TSH 3.1 - glucose 86 ID - concern for CAP initially, but appears more c/w volume overload --> improved with diuresis, negative procalcitonin - WBC 5.2 this AM, afebrile - lactate 2.2 - RVP negative - UA 06/22: negative - strep pneumo and legionella urine Ags negative - tracheal aspirate 06/22: GS w/ no organisms seen; cx normal oropharyngeal deidre - blood cx 06/22: NGTD - procalcitonin 0.02 - continue levaquin for 5-day course HEME - hgb 12.3, plt 145 - INR 1.1, PTT 23.2 FEN - cardiac diet, nectar-thick consistency liquids - IVF: none - review electrolytes and replace as needed PPX: Lines: PIV x 2 Drains/Tubes: None Indwelling Urinary Catheter: Yes --> will dc DVT: SCDs; Heparin GI: Pepcid PT/OT: Yes Insulin: No Reviewed Quality Checklist with RN: Yes Code Status: Full Code Disposition/Family: Stable for transfer to floor. Sakina Banks APRN Pulm/Critical Care Pager [phone] M2 (2nd call/night) Pager [phone] 06/24/2018 7701 ATTESTATION I personally interviewed and examined the patient. I have reviewed the history , physical, impression and plan outlined by the Nurse Practitioner. The patient presents with acute respiratory failure due to decompensated HFpEF, pulmonary edema and possibly pneumonia. Clinically improved. Extubated yesterday. Mild delirium overnight. Seems alert this morning. On examination pt is sitting in chair in NAD. Baseline tremor. Lungs clear, heart regular, abdomen soft NT/ND with positive bowel sounds. Extremities without cl/cy or edema. Neurologically issa weak. My impression is acute respiratory failure due to decompensated HFpEF, pulmonary edema and possibly pneumonia. Now resolved and back to baseline. My plan is to restart ARNOLD inhibitor and add low dose aldactone. Will need to work with PT/OT today. I would like for case management to look into home health care options including PT if physical therapist feels he is strong enough to get rehab at home. Pt stable for transfer to floor. Staff name: Dwayne Myers MD Date: 06/24/2018 __ Subjective: Dorie York is a 83 y.o. male who is awake and alert, sitting in chair at bedside. Offers no complaints. at bedside; states her has had cognitive decline over past 2 weeks (after recently relocating from [place]). ROS: denies AYALA, chest pain/pressure, SOB, cough, abdominal pain, N/V/D/C, or rash. Objective: Medications: Scheduled Meds: famotidine (PEPCID) injection 20 mg 20 mg Intravenous BID heparin (porcine) PF syringe 5,000 Units 5,000 Units Subcutaneous Q8H latanoprost (XALATAN) 0.005 % ophthalmic solution 1 drop 1 drop Left Eye QHS levofloxacin (LEVAQUIN) 750 mg/150 mL IVPB 750 mg Intravenous Q24H* Continuous Infusions: PRN and Respiratory Meds: Vital Signs: Last Filed Vital Signs: 24 Hour Range BP: 111/56 (06/24 400) Temp: 36.4 C (97.5 F) (06/24 400) Pulse: 80 (06/24 400) Respirations: 10 PER MINUTE (06/24 400) SpO2: 95 % (06/24 400) O2 Delivery: Nasal Cannula (06/24 400) SpO2 Pulse: 80 (06/24 400) BP: (92-134)/(47-98) Temp: [36.4 C (97.5 F)-37 C (98.6 F)] Pulse: [65-110] Respirations: [7 PER MINUTE-23 PER MINUTE] SpO2: [90 %-99 %] O2 Delivery: Nasal Cannula Vitals: 06/22/18 0100 06/22/18 1018 Weight: 119.4 kg (263 lb 3.7 oz) 119.3 kg (263 lb) Intake/Output Summary: (Last 24 hours) Intake/Output Summary (Last 24 hours) at 06/24/18 0557 Last data filed at 06/24/18 040 Gross per 24 hour Intake 287.04 ml Output 1580 ml Net -1292.96 ml Physical Exam: General: cooperative, no distress Head: normocephalic, without obvious abnormality, atraumatic Eyes: conjunctivae/corneas clear, PERRL Lungs: clear throughout, diminished in bases Heart: regular rate and rhythm, no murmur appreciated Abdomen: soft, non-tender; bowel sounds active Extremities: normal, atraumatic, no cyanosis; 2+ BLE edema Peripheral pulses: 2+ and symmetric, all extremities Cap Refill: 3 seconds Skin: color, texture, turgor normal; no rashes or lesions Neurologic: awake and alert, follows commands Artificial airway: None Ventilator/ Respiratory Therapy: No Vent weaning trial: Not applicable Laboratory: LABS: Recent Labs 06/22/18 0125 06/22/18 1727 06/23/18 0015 06/23/18 0438 06/23/18 0844 NA 141 -- -- 135* -- K 4.1 3.6 2.5* 3.5 4.0 CL 100 -- -- 96* -- CO2 31* -- -- 35* -- GAP 10 -- -- 4 -- BUN 30* -- -- 22 -- CR 1.03 -- -- 0.99 -- GLU 111* -- -- 122* -- CA 8.6 -- -- 8.0* -- ALBUMIN 3.3* -- -- 2.7* -- MG 1.7 1.8 1.2* -- 2.5 PO4 2.3 -- -- 2.7 -- TSH 3.100 -- -- -- -- Recent Labs 06/22/18 0125 06/22/18 0355 06/23/18 0438 06/24/18 0343 WBC 6.7 -- 5.9 5.2 HGB 14.0 -- 12.1* 12.3* HCT 41.8 -- 36.7* 37.5* PLTCT 101* -- 133* 145* INR -- 1.1 -- -- PTT -- 23.2 -- -- AST 22 -- 14 -- ALT 9 -- 7 -- ALKPHOS 58 -- 48 -- TNI 0.04 0.04 -- -- Estimated Creatinine Clearance: 73.6 mL/min (based on SCr of 0.99 mg/dL). Vitals: 06/22/18 0100 06/22/18 1018 Weight: 119.4 kg (263 lb 3.7 oz) 119.3 kg (263 lb) Recent Labs 06/22/18 0141 06/23/18 0844 PHART 7.45 7.50* PO2ART 158* 106* Radiology and Other Diagnostic Procedures Review: Reviewed pertinent studies. * Kerrie Piedra, LACI - 06/23/2018 9:54 PM CDT 1930: Report received and care assumed. Bedside safety check complete. Pt alert and oriented to person and time. VS stable. Assessment completed, see doc flowsheets. Will continue to monitor. 0400: Pt presents with intermittent confusion overnight. Reoriented often. Otherwise, no further concerns. Will continue to monitor. * Dwayne Myers MD - 06/23/2018 7:55 PM CDT Formatting of this note may be different from the original. MICU STAFF NOTE Name: Dorie York Code Status: Full Code Admission Date: 06/22/2018 I have independently seen, personally fully evaluated, and discussed patient with the Medical ICU team. The patient is critically ill with the conditions listed below: Principal Problem: Acute respiratory failure with hypoxia and hypercapnia (HCC) Active Problems: Community acquired pneumonia of right lower lobe of lung (HCC) Acute pulmonary edema (HCC) Fluid overload Seizure (HCC) Acute encephalopathy I spent 40 minutes (excluding time spent performing or supervising any procedures and independent of UNDERCOAT SPRAYER review) providing and personally directing critical care services including Systems and physical examination Review of laboratory data Review of telemetry data Review of imaging studies Review of medications Fluid and electrolyte management Coordination of care with consulting services Serial evaluations of respiratory and mental status Daily Impression/Plan: Pt remains critically ill with acute respiratory failure due to decompensated HFpEF, pulmonary edema and possibly pneumonia. Continue antibiotics and diuresis. Plan for ventilator liberation this morning if weaning parameters met. Pt remains critically ill but is improving. Review of Systems: Review of systems not obtained from patient due to patient factors. Vitals: 06/23/18 1900 BP: 96/56 Pulse: 80 Temp: SpO2: 95% Physical Exam: General: cooperative, no distress, appears stated age. Ventilated. Awake. Head: normocephalic, without obvious abnormality, atraumatic Eyes: conjunctivae/corneas clear, PERRL Lungs: bilateral crackles, diminished in bases Heart: regular rate and rhythm, no murmur appreciated Abdomen: soft, non-tender; bowel sounds active Extremities: normal, atraumatic, no cyanosis; 2+ BLE edema Peripheral pulses: 2+ and symmetric, all extremities Cap Refill: 3 seconds Skin: color, texture, turgor normal; no rashes or lesions Neurologic: sedated; when sedation lightened awake, mouthing words, and following commands Results for orders placed or performed during the hospital encounter of (from the past 48 hour(s)) URINALYSIS DIPSTICK Collection Time: 06/22/18 1:12 AM # # Low-High Color,UA STRAW Turbidity,UA CLEAR CLEAR-CLEAR Specific [place]-Urine 1.006 1.003 - 1.035 pH,UA 5.0 5.0 - 8.0 Protein,UA NEG NEG-NEG Glucose,UA NEG NEG-NEG Ketones,UA 1+ (A) NEG-NEG Bilirubin,UA NEG NEG-NEG Blood,UA 2+ (A) NEG-NEG Urobilinogen,UA NORMAL NORM-NORMAL Nitrite,UA NEG NEG-NEG Leukocytes,UA NEG NEG-NEG Urine Ascorbic Acid, UA NEG NEG-NEG URINALYSIS, MICROSCOPIC Collection Time: 06/22/18 1:12 AM # # Low-High WBCs,UA 0-2 0 - 2 /HPF RBCs,UA 10-20 0 - 3 /HPF MucousUA TRACE LEGIONELLA ANTIGEN URINE,RAN Collection Time: 06/22/18 1:12 AM # # Low-High Battery Name LEGIONELLA URINE ANTIGEN Specimen Description URINE Special Requests NONE Antigen NEGATIVE Report Status FINAL 06/22/2018 STREPTOCOCCUS PNEUMO AG, URINE Collection Time: 06/22/18 1:12 AM # # Low-High Battery Name STREP PNEUMO AG, UR Specimen Description URINE Special Requests NONE Antigen NEGATIVE Report Status FINAL 06/22/2018 LACTIC ACID (BG - RAPID LACTATE) Collection Time: 06/22/18 1:19 AM # # Low-High Lactic Acid,BG 2.2 (H) 0.5 - 2.0 MMOL/L IONIZED CALCIUM Collection Time: 06/22/18 1:19 AM # # Low-High Ionized Calcium 0.98 (L) 1.0 - 1.3 MMOL/L CBC AND DIFF Collection Time: 06/22/18 1:25 AM # # Low-High White Blood Cells 6.7 4.5 - 11.0 K/UL RBC 4.00 (L) 4.4 - 5.5 M/UL Hemoglobin 14.0 13.5 - 16.5 GM/DL Hematocrit 41.8 40 - 50 % MCV 104.4 (H) 80 - 100 FL MCH 35.0 (H) 26 - 34 PG MCHC 33.5 32.0 - 36.0 G/DL RDW 14.2 11 - 15 % Platelet Count 101 (L) 150 - 400 K/UL MPV 7.6 7 - 11 FL Neutrophils 83 (H) 41 - 77 % Lymphocytes 10 (L) 24 - 44 % Monocytes 6 4 - 12 % Eosinophils 0 0 - 5 % Basophils 1 0 - 2 % Absolute Neutrophil Count 5.50 1.8 - 7.0 K/UL Absolute Lymph Count 0.70 (L) 1.0 - 4.8 K/UL Absolute Monocyte Count 0.40 0 - 0.80 K/UL Absolute Eosinophil Count 0.00 0 - 0.45 K/UL Absolute Basophil Count 0.10 0 - 0.20 K/UL COMPREHENSIVE METABOLIC PANEL Collection Time: 06/22/18 1:25 AM # # Low-High Sodium 141 137 - 147 MMOL/L Potassium 4.1 3.5 - 5.1 MMOL/L Chloride 100 98 - 110 MMOL/L Glucose 111 (H) 70 - 100 MG/DL Blood Urea Nitrogen 30 (H) 7 - 25 MG/DL Creatinine 1.03 0.4 - 1.24 MG/DL Calcium 8.6 8.5 - 10.6 MG/DL Total Protein 5.9 (L) 6.0 - 8.0 G/DL Total Bilirubin 1.1 0.3 - 1.2 MG/DL Albumin 3.3 (L) 3.5 - 5.0 G/DL Alk Phosphatase 58 25 - 110 U/L AST (SGOT) 22 7 - 40 U/L CO2 31 (H) 21 - 30 MMOL/L ALT (SGPT) 9 7 - 56 U/L Anion Gap 10 3 - 12 eGFR Non >60 >60 mL/min eGFR >60 >60 mL/min MAGNESIUM Collection Time: 06/22/18 1:25 AM # # Low-High Magnesium 1.7 1.6 - 2.6 mg/dL PHOSPHORUS Collection Time: 06/22/18 1:25 AM # # Low-High Phosphorus 2.3 2.0 - 4.5 MG/DL BNP (B-TYPE NATRIURETIC PEPTI) Collection Time: 06/22/18 1:25 AM # # Low-High B Type Natriuretic Peptide 370.0 (H) 0 - 100 PG/ML TSH WITH FREE T4 REFLEX Collection Time: 06/22/18 1:25 AM # # Low-High TSH 3.100 0.35 - 5.00 MCU/ML TROPONIN-I Collection Time: 06/22/18 1:25 AM # # Low-High Troponin-I 0.04 0.0 - 0.05 NG/ML CULTURE-BLOOD W/SENSITIVITY Collection Time: 06/22/18 1:25 AM # # Low-High Battery Name BLOOD CULTURE Specimen Description BLOOD RIGHT WRIST Special Requests NONE Culture NO GROWTH 1 DAY Report Status PROCALCITONIN Collection Time: 06/22/18 1:25 AM # # Low-High Procalcitonin 0.02 <0.10 NG/ML BLOOD GASES, ARTERIAL Collection Time: 06/22/18 1:41 AM # # Low-High pH-Arterial 7.45 7.35 - 7.45 pCO2-Arterial 49 (H) 35 - 45 MMHG pO2-Arterial 158 (H) 80 - 100 MMHG Base Excess-Arterial 7.9 MMOL/L O2 Sat-Arterial 99.4 (H) 95 - 99 % Laadzsstqvp-[id number]-Bzw 31.7 (H) 21 - 28 MMOL/L CULTURE-BLOOD W/SENSITIVITY Collection Time: 06/22/18 1:41 AM # # Low-High Battery Name BLOOD CULTURE Specimen Description BLOOD LEFT RADIAL Special Requests NONE Culture NO GROWTH 1 DAY Report Status CULTURE-RESP,LOWER W/SENSITIVITY Collection Time: 06/22/18 2:02 AM # # Low-High Battery Name LOWER RESP CULTURE Specimen Description TRACHEAL ASPIRATE Special Requests NONE Direct Gram Stain LESS THAN 10/LPF NEUTROPHILS LESS THAN 10/LPF SQUAMOUS EPITHELIAL CELLS NO ORGANISMS SEEN Culture Culture in progress Report Status RVP VIRAL PANEL PCR Collection Time: 06/22/18 2:02 AM # # Low-High Specimen Source NASAL WASH Adenovirus NOT DETECTED Coronavirus 229E NOT DETECTED Coronavirus HKU1 NOT DETECTED Coronavirus NL63 NOT DETECTED Coronavirus OC43 NOT DETECTED Human Metapneumovirus NOT DETECTED Human Rhinovirus/ENTEROVIRUS NOT DETECTED Influenza A H1N1 2009 NOT DETECTED Influenza A H1 NOT DETECTED Influenza A H3 NOT DETECTED Influenza B NOT DETECTED Parainfluenza 1 NOT DETECTED Parainfluenza 2 NOT DETECTED Parainfluenza 3 NOT DETECTED Parainfluenza 4 NOT DETECTED RSV NOT DETECTED Bordetella Pertussis NOT DETECTED Chlamydophila Pneumoniae NOT DETECTED Mycoplasma Pneumoniae NOT DETECTED GRAM STAIN Collection Time: 06/22/18 2:02 AM # # Low-High Battery Name GRAM STAIN Specimen Description TRACHEAL ASPIRATE Special Requests NONE Gram Stain LESS THAN 10/LPF NEUTROPHILS LESS THAN 10/LPF SQUAMOUS EPITHELIAL CELLS NO ORGANISMS SEEN Report Status FINAL 06/22/2018 TROPONIN-I Collection Time: 06/22/18 3:55 AM # # Low-High Troponin-I 0.04 0.0 - 0.05 NG/ML PTT (APTT) Collection Time: 06/22/18 3:55 AM # # Low-High APTT 23.2 20.0 - 36.0 SEC PROTIME INR (PT) Collection Time: 06/22/18 3:55 AM # # Low-High INR 1.1 0.8 - 1.2 POTASSIUM Collection Time: 06/22/18 5:27 PM # # Low-High Potassium 3.6 3.5 - 5.1 MMOL/L MAGNESIUM Collection Time: 06/22/18 5:27 PM # # Low-High Magnesium 1.8 1.6 - 2.6 mg/dL POTASSIUM Collection Time: 06/23/18 12:15 AM # # Low-High Potassium 2.5 (LL) 3.5 - 5.1 MMOL/L MAGNESIUM Collection Time: 06/23/18 12:15 AM # # Low-High Magnesium 1.2 (L) 1.6 - 2.6 mg/dL CBC AND DIFF Collection Time: 06/23/18 4:38 AM # # Low-High White Blood Cells 5.9 4.5 - 11.0 K/UL RBC 3.53 (L) 4.4 - 5.5 M/UL Hemoglobin 12.1 (L) 13.5 - 16.5 GM/DL Hematocrit 36.7 (L) 40 - 50 % MCV 103.8 (H) 80 - 100 FL MCH 34.1 (H) 26 - 34 PG MCHC 32.9 32.0 - 36.0 G/DL RDW 14.0 11 - 15 % Platelet Count 133 (L) 150 - 400 K/UL MPV 7.5 7 - 11 FL Neutrophils 85 (H) 41 - 77 % Lymphocytes 8 (L) 24 - 44 % Monocytes 7 4 - 12 % Eosinophils 0 0 - 5 % Basophils 0 0 - 2 % Absolute Neutrophil Count 5.00 1.8 - 7.0 K/UL Absolute Lymph Count 0.50 (L) 1.0 - 4.8 K/UL Absolute Monocyte Count 0.40 0 - 0.80 K/UL Absolute Eosinophil Count 0.00 0 - 0.45 K/UL Absolute Basophil Count 0.00 0 - 0.20 K/UL COMPREHENSIVE METABOLIC PANEL Collection Time: 06/23/18 4:38 AM # # Low-High Sodium 135 (L) 137 - 147 MMOL/L Potassium 3.5 3.5 - 5.1 MMOL/L Chloride 96 (L) 98 - 110 MMOL/L Glucose 122 (H) 70 - 100 MG/DL Blood Urea Nitrogen 22 7 - 25 MG/DL Creatinine 0.99 0.4 - 1.24 MG/DL Calcium 8.0 (L) 8.5 - 10.6 MG/DL Total Protein 5.0 (L) 6.0 - 8.0 G/DL Total Bilirubin 0.6 0.3 - 1.2 MG/DL Albumin 2.7 (L) 3.5 - 5.0 G/DL Alk Phosphatase 48 25 - 110 U/L AST (SGOT) 14 7 - 40 U/L CO2 35 (H) 21 - 30 MMOL/L ALT (SGPT) 7 7 - 56 U/L Anion Gap 4 3 - 12 eGFR Non >60 >60 mL/min eGFR >60 >60 mL/min PHOSPHORUS Collection Time: 06/23/18 4:38 AM # # Low-High Phosphorus 2.7 2.0 - 4.5 MG/DL MAGNESIUM Collection Time: 06/23/18 8:44 AM # # Low-High Magnesium 2.5 1.6 - 2.6 mg/dL BLOOD GASES, ARTERIAL Collection Time: 06/23/18 8:44 AM # # Low-High pH-Arterial 7.50 (H) 7.35 - 7.45 pCO2-Arterial 45 35 - 45 MMHG pO2-Arterial 106 (H) 80 - 100 MMHG Base Excess-Arterial 10.9 MMOL/L O2 Sat-Arterial 98.7 95 - 99 % Ybqbtqrtsai-FGL-Mgy 34.7 (H) 21 - 28 MMOL/L POTASSIUM Collection Time: 06/23/18 8:44 AM # # Low-High Potassium 4.0 3.5 - 5.1 MMOL/L @IMAGES@ Reviewed. * Mini Gallo MA,CCC-METAL NEUTRALIZER - 06/23/2018 3:22 PM CDT SPEECH-LANGUAGE PATHOLOGY VIDEOSWALLOW ASSESSMENT EVALUATION SUMMARY Videoswallow Summary*: Videoswallow evaluation completed with RN and spouse present. Overall, pt presents with mild to moderate oropharyngeal dysphagia. Contributing sources include generalized weakness and mistimed airway protection 2* recent prolonged intubation (06/21-06/23), volume overload/CHF concerns, and acute respiratory failure. Pt demonstrated penetration with thin liquids, which did not appear to clear from the laryngeal vestibule. Strategies utilized, which were ineffective, included: chin tuck, effortful swallow. Small , tsp amounts of thin appeared to reduce penetration events, yet did not completely eliminate. Multiple swallows per bolus assisted in pharyngeal residue clearance. No penetration/aspiration noted with remainder of consistency presentation. Discussed at bedside with pt/spouse extensively with utilization of visual teaching methods. Question pt understanding despite teach back method. Per pt request, no further speech services despite known risk of penetration, which could potentially lead to pneumonia. Pt's spouse acknowledged understanding and primary team notified for GOC discussion. See below for further details. RECOMMENDATIONS: 1. Continue regular solids and nectar thick liquids as the safest and least restricted diet with utilization of swallow strategies (small bites/sips, slow rate, upright at 90 degree angle, multiple swallows per bolus). 2. Medications as tolerated by pt. 3. Excellent oral care to reduce risk of aspirated bacteria from oral cavity (2- 3x/day). 4. Pending GOC discussion, this department will hold prior to discharge. Should pt accept ongoing speech services, will address oropharyngeal exercises and PO trials for advancement purposes. Should pt decline ongoing speech services, this department will sign off. MBSImp Scale: Lip closure for intraoral bolus containment resulted in no labial escape. Tongue control during bolus hold resulted in posterior escape of less than half of bolus. Bolus preparation and mastication resulted in slow, prolonged chewing/ mashing but with complete re-collection. Bolus transport/lingual motion was with slowed tongue motion. Oral residue was a trace, lining oral structures. Initiation of the pharyngeal swallow occured when the bolus head was in the valleculae. Soft palate elevation resulted in no bolus between the soft palate and the pharyngeal wall. Laryngeal elevation was decreased, with partial superior movement of the thyoid cartilage/partial approximation of the arytenoids to the epigoittic petiole. Anterior hyoid excursion demonstrated partial anterior movement. Epiglottic movement resulted in complete inversion. Laryngeal vestibular closure was incomplete, with narrow column of air/contrast noted within the laryngeal vestibule at the height of the swallow. Pharyngeal stripping wave was present, but diminished. Pharyngeal contraction could not be assessed due to logistical reasons not related to physiologic impairment. Pharyngoesophageal segment opening was completely distended for complete duration with no obstruction of bolus flow. Tongue base retraction allowed a narrow column of contrast of air between the retracted tongue base and the posterior pharyngeal wall. Pharyngeal residue was a collection of residue within or on pharyngeal structures. Esophageal clearance in the upright position was complete, with only a coating of contrast, if any. Swallow Strategies Small Bites and Sips: Effective Slow Rate of Intake: Effective Alternate Solids / Liquids: Not Effective Multiple Swallows: Effective Chin Down: Not Effective Cough / Throat Clear: Not Effective Effortful Swallow: Not Effective Swallow Recommendations* PO: Regular, [place] Thick Liquids Swallow Strategies: Small Bites/Sips, Slow Rate of Intake, Liquids By Spoon Plan*: Other (Comment) (Pt declined speech services at this time despite risk.) Prognosis*: Fair NOMS Dysphagia Rating*: 3-Mvmb-Ylfaxzgu Dysphagia -Swallow safe but usually requires mod cues to use compensatory strategies &/or has mod diet restrictions &/or still requires tube feeding &/or oral supplements. Penetration Aspiration Scale*: 3 - Material enters laryngeal vestibule, remains above vocal folds & is not ejected Objective* Relevant Med Background: Pt is an 83 y/o M with PMH significant forHTN, prostate CA, Lknee arthroplasty, and brain bleed/seizure (not currently on seizures meds). He developed dyspnea and lower extremityswelling since Thursday; athis PCP'soffice /8he was found to have O2 sat 50%. He was transferred to ER at [facility], were he was found to have acute hypoxic andhypercapnic respiratory failure 2/2pulmonary edema and possible CAP. There was also concern of possible seizure around that time. Eventually he was intubated and started on MV, thentransferred to [facility]. Intubated 06/21-. Hearing: Hard of Hearing - R, Hard of Hearing - L Lives With: Spouse Receives Help From: None Needed Psychosocial Status: Willing and Cooperative to Participate Persons Present: Spouse CXR 06/22/18 1. Enlargement of the cardiac silhouette with mild pulmonary venous congestion compatible with CHF/fluid overload. 2. Patchy bibasilar opacities which may be due to atelectasis and/or pneumonia. 3. Small left pleural effusion. -This patient is not known to this department. Subjective* Pain: Patient has no complaint of pain Pain Level Current*: No pain Trach Presence: No Feeding Tube Present During Eval: None Nutrition* Nutrition Prior To Hospitalization: Oral, Regular, Thin Liquids Current Form Of Nutrition: NPO Barium Consist/Presentation* Presentations: Therapist Fed Thin Liquid: 1 Tsp, Straw [place] Thick Liquid: 1 Tsp, Straw Other Consistencies: Pudding, Regular Solids Education* Persons Educated: Pt/Family Barriers To Learning: Hearing, Cognitive Deficits Interventions: Family Educated, Staff Educated, Repetition of Instructions Teaching Methods: Verbal, Demonstration Topics: Dysphagia Patient Response: Unable to Demonstrate Understanding, More Instruction Required Videoswallow Goals* Goal : Pt will participate in oropharyngeal exercises with 90% accuracy when given mild cues. Goal : Pt will tolerate regular solids and nectar thick liquids with <5% s/s aspiration and free of pulmonary status changes. Goal: Pt will participate in PO trials for diet advancement purposes with <5% s/ s aspiration and free of pulmonary status changes. G-Codes: Swallowing G 8996 Current Status: 40-59% Impairment G 8997 Goal Status: 20-39% Impairment Based on above evaluation and clinical judgment. Therapist: Mini Gallo MA,CCC-[employer]AL NEUTR[employer]IZER Voalte [phone] pager [phone] Date: 06/23/2018 * Tiara Sanchez RN - 06/23/2018 1:53 PM CDT Pt taken to radiology for video swallow via video swallow chair. Pt tolerated transport and test well. Returned to room and placed back on bedside monitor. * Kelly Terrazas, RT - 06/23/2018 1:33 PM CDT RT Adult Assessment Note NAME:Dorie York :1935 AGE: 83 y.o. ADMISSION DATE: 06/22/2018 DAYS ADMITTED: LOS: 1 day RT Treatment Plan: Protocol Plan: Medications Albuterol/Ipratropium: Discontinued Protocol Plan: Procedures Oxygen/Humidity: O2 to keep SpO2 > 92% Monitoring: Pulse oximetry BID & PRN Additional Comments: Impressions of the patient: in bed in no apparent distress Intervention(s)/outcome(s): none Patient education that was completed: none Recommendations to the care team: none Vital Signs: Pulse: Pulse: 76 RR: Respirations: 19 PER MINUTE SpO2: SpO2: 94 % O2 Device: $$ O2 Device: Cannula Liter Flow: O2 Liter Flow: 2 lpm O2%: Breath Sounds: All Breath Sounds: Clear (implies normal) Respiratory Effort: Respiratory Effort: Non-Labored * Mini Gallo MA,CCC-METAL NEUTRALIZER - 06/23/2018 1:19 PM CDT SPEECH-LANGUAGE PATHOLOGY CLINICAL SWALLOW ASSESSMENT EVALUATION SUMMARY Summary: Clinical bedside swallow evaluation completed this date with spouse present. Per pt report, frequent wet throat clearing at baseline 2* sinus drainage. Overall, pt presents with mild to moderate oropharyngeal dysphagia. Sources likely contributing to dysphagia include generalized weakness and sensation changes related to recent prolonged intubation (06/21-06/23), volume overload/CHF concerns, and acute respiratory failure. Pt demonstrated overt s/s aspiration following trials of thin liquid consistencies including 3 oz Water Protocol, characterized by wet productive cough. Unable to determine if wet cough related to management of secretions vs. true penetration/aspiration event. Swallow strategies, including small sips and effortful swallow, somewhat effective, yet ongoing wet cough noted throughout evaluation, appearing less deep/bronchial than prior to PO trials. Discussed with pt/family and reported clinical findings to staff. See below for further details. RECOMMENDATIONS: 1. Initiate regular solids and nectar thick liquids with utilization of compensatory strategies (small bites/sips, slow rate, upright at 90 degree angle , effortful swallow). 2. Medications as tolerated by pt. 3. Videoswallow scheduled 06/23/18 @1400 for further assessment. 4. Excellent oral care to reduce risk of aspirated bacteria from oral cavity (2- 3x/day). 5. This department will continue to follow for ongoing dysphagia evaluation. Oral Stage Summary*: PO trials administered included: ice chips, thin tsp/straw , nectar via tsp, pureed solids, mechanical soft solids, and regular solids. Oral stage minimally impaired. Bolus withdraw functional from spoon and straw. Bolus formation/mastication minimally reduced/prolonged. Bolus transfer brisk. No anterior bolus loss or oral residue noted. Pharyngeal Stage Summary*: Pharyngeal stage mild to moderately impaired. Swallow initiation appeared somewhat timely. Laryngeal elevation judged to be slightly reduced upon palpation. Pt demonstrated overt s/s aspiration following trials of thin liquid consistencies including 3 oz Water Protocol, characterized by wet productive cough. Unable to determine if wet cough related to management of secretions vs. true penetration/aspiration event. Swallow Recommendations* PO: Regular, [place] Thick Liquids Swallow Strategies: Small Bites/Sips, Slow Rate of Intake, Effortful Swallow Instrumental Procedure: Videoswallow Plan: Continue Treatment __x/week (Comment). (3-5) Prognosis: Fair NOMS Dysphagia Ratin5-Sjif-Gsaykfua Dysphagia -Swallow safe but usually requires mod cues to use compensatory strategies &/or has mod diet restrictions &/or still requires tube feeding &/or oral supplements. Results Reported to Physician: Yes Objective* Relevant Med Background: Pt is an 83 y/o M with PMH significant for HTN, prostate CA, L knee arthroplasty, and brain bleed/seizure (not currently on seizures meds). He developed dyspnea and lower extremity swelling since Thursday ; at his PCP's office 06/21 he was found to have O2 sat 50%. He was transferred to ER at [facility], were he was found to have acute hypoxic and hypercapnic respiratory failure 2/2 pulmonary edema and possible CAP. There was also concern of possible seizure around that time. Eventually he was intubated and started on MV, then transferred to [facility]. Intubated 06/21-06/23. Hearing: Hard of Hearing - R, Hard of Hearing - L Lives With: Spouse Receives Help From: None Needed Psychosocial Status: Willing and Cooperative to Participate Persons Present: Spouse CXR 06/22/18 1. Enlargement of the cardiac silhouette with mild pulmonary venous congestion compatible with CHF/fluid overload. 2. Patchy bibasilar opacities which may be due to atelectasis and/or pneumonia. 3. Small left pleural effusion. -This patient is not known to this department. Subjective* Pain: Patient has no complaint of pain Pain Level Current*: No pain Trach Presence: No Feeding Tube Present During Eval: None Nutrition* Nutrition Prior To Hospitalization: Oral, Regular, Thin Liquids Current Form Of Nutrition: NPO Oral Mech Exam Oral Mech WFL*: No Oral Mech Exam Summary*: Oral mech exam completed. Overall, unremarkable oral motor structure/function. Natural dentition intact. Vocal quality minimally hypophonic, yet no hoarseness noted. Strong volitional cough. Visceral swallow weakened. Swallow Strategies Small Bites and Sips: Effective Slow Rate of Intake: Effective Effortful Swallow: Effective Education* Persons Educated: Pt/Family Barriers To Learning: Hearing Interventions: Family Educated, Staff Educated, Provided Written Education, Repetition of Instructions Teaching Methods: Verbal, Demonstration, Printed Topics: Dysphagia Patient Response: Verbalized Understanding Goal Formulation: With Patient Clinical Swallow Goals* Goal : Pt will participate in videoswallow evaluation when given mild cues. Goal : Pt will tolerate regular solids and nectar thick liquids with <5% s/s aspiration and free of pulmonary status changes. G-Codes: Swallowing G 8996 Current Status: 40-59% Impairment G 8997 Goal Status: 20-39% Impairment Based on above evaluation and clinical judgment. Therapist:Mini Gallo MA,CCC-[employer] NEUTRAL[employer]ER Voalte [phone] pager [phone] Date:06/23/2018 * Cecelia Rascon, PT - 06/23/2018 1:18 PM CDT PHYSICAL THERAPY ASSESSMENT MOBILITY: Mobility Progressive Mobility Level: Walk in room Distance Walked (feet): 20 ft Level of Assistance: Assist X1 Assistive Device: Walker Time Tolerated: 11-30 minutes Activity Limited By: Fatigue;Weakness SUBJECTIVE: Subjective Significant hospital events: PMH significant for HTN, prostate CA, L knee arthroplasty, and brain bleed/seizure (not currently on seizures meds). Patient transferred fro OSH due to acute hypoxic and hypercapnic respiratory failure 2/ 2 pulmonary edema and possible CAP. Patient extubated 06/23. Mental / Cognitive Status: Alert;Oriented;To Person;Cooperative;Follows Commands Persons Present: RehabTechnician;Spouse (arrived at end of session. ) Pain: Patient has no complaint of pain Pain Interventions: Patient agrees to participate in therapy Comments: Patient on 2L O2 via nasal cannula. Ambulation Assist: Independent Mobility in Community with Device Patient Owned Equipment: Roller Walker;Single Point Cane Home Situation: Lives with Family Type of Home: House Entry Stairs: 3-5 Stairs;Rail on 1 Side (5 steps to enter ) In-Home Stairs: Able to Live on One Level ROM: ROM LE ROM: WFL STRENGTH: Strength Overall Strength: Generalized Weakness;No Focal Deficits Noted BED MOBILITY/TRANSFERS: Bed Mobility/Transfers Bed Mobility: Supine to Sit: Standby Assist;Head of Bed Elevated;Use of Rail; Verbal Cues;Requires Extra Time;Assist with Trunk Transfer Type: Sit to/from Stand Transfer: Assistance Level: To/From;Bed;Minimal Assist Transfer: Assistive Device: Roller Walker Transfers: Type Of Assistance: Verbal Cues;For Safety Considerations;For Balance ;For Strength Deficit Other Transfer Type: Stand to Sit Other Transfer: Assistance Level: To;Bed Side Chair;Minimal Assist Other Transfer: Assistive Device: Roller Walker Other Transfer: Type Of Assistance: Verbal Cues;For Safety Considerations;For Balance End Of Activity Status: Up in Chair;Nursing Notified;Instructed Patient to Request Assist with Mobility;Instructed Patient to Use Call Light BALANCE: Balance Sitting Balance: Standby Assist Standing Balance: Static Standing Balance;Standby Assist;2 UE support;Dynamic Standing Balance;Minimal Assist GAIT: Gait Gait Distance: 20 feet Gait: Assistance Level: Minimal Assist Gait: Assistive Device: Roller Walker Gait: Descriptors: Pace: Slow;Decreased step length;No balance loss Activity Limited By: Complaint of Fatigue Comments: Patient impulsive with movements. Easily distracted by lines and cords. ACTIVITY/EXERCISE: Activity / Exercise Sit Edge Of Bed: 5 minutes Sit Edge Of Bed Assist: Stand By Assist Stand At Bedside : 1 minutes Stand At Bedside Assist: Minimal Assist EDUCATION: Education Persons Educated: Patient Patient Barriers To Learning: Cognitive Deficits;Confusion (?) Interventions: Repetition of Instructions Teaching Methods: Verbal Instruction Patient Response: Verbalized Understanding;More Instruction Required Topics: Plan/Goals of PT Interventions;Mobility Progression;Use of Assistive Device/Orthosis;Up with Assist Only;Importance of Increasing Activity;Safety Awareness ASSESSMENT/PROGRESS: Assessment/Progress Impaired Mobility Due To: Decreased Activity Tolerance;Deconditioning Assessment/Progress: Should Improve w/ Continued PT Comments: Patient appears to not fully understand current medical status. Patient impulsive with movements. Tolerated activity well did require increased O2. with activity. Expect patient to continue to improve with mobility. AM-PAC 6 Clicks Basic Mobility Inpatient Turning from your back to your side while in a flat bed without using bed rails : A Little Moving from lying on your back to sitting on the side of a flatbed without using bedrails : A Little Moving to and from a bed to a chair (including a wheelchair): A Little Standing up from a chair using your arms (e.g. wheelchair, or bedside chair): A Little To walk in hospital room: A Little Climbing 3-5 steps with a railing: A Lot Raw Score: 17 Standardized (T-scale) Score: 39.67 Basic Mobility CMS 0-100%: 43.83 CMS G Code Modifier for Basic Mobility: CK GOALS: Goals Goal Formulation: With Patient Pt Will Go Supine To/From Sit: w/ Stand By Assist Pt Will Transfer Bed/Chair: w/ Stand By Assist Pt Will Transfer Sit to Stand: w/ Stand By Assist Pt Will Ambulate: Greater than 200 Feet, w/ Walker, w/ Stand By Assist Pt Will Go Up / Down Stairs: 3-5 Stairs, w/ Stand By Assist PLAN: Plan Treatment Interventions: Mobility Training;Strengthening;Balance Activities Plan Frequency: 5 Days per Week PT Plan for Next Visit: Increase ambulation distance. Safety awareness. RECOMMENDATIONS: PT Discharge Recommendations PT Discharge Recommendations: Home with Assistance;Home Health Setting;versus; Inpatient Setting (dependent on patient progress with mobility) Equipment Recommendations: Patient owns necessary equipment G-Codes: Mobility G8978 Current Status: 40-59% Impairment G8979 Goal Status: 20-39% Impairment Based on above evaluation and clinical judgment. Therapist: Cecelia Rascon, PT, DPT Date: 06/23/2018 * Tracy Myrick, RN - 06/23/2018 8:53 AM CDT 0730 Report received and care assumed at this time. Bedside safety check complete with security shift manager RN. Propofol and fentanyl gtts infusing at this time. Patient alert, oriented to person, nodding appropriately and following commands. VSS on tele. ICU assessment complete, please see doc flow. No concerns at this time. Will continue to monitor closely. 0830 SAT and SBT performed. at bedside and updated on POC. All questions answered. 1100 Patient extubated to NE 1400 Patient to swallow study with resource RN * Sakina Banks APRN - 06/23/2018 6:15 AM CDT Formatting of this note may be different from the original. Pulmonary / Critical Care Progress Note Dorie York Today's Date: 06/23/2018 Admission Date: 06/22/2018 LOS: 1 day Principal Problem: Acute respiratory failure with hypoxia and hypercapnia (HCC) Active Problems: Community acquired pneumonia of right lower lobe of lung (HCC) Acute pulmonary edema (HCC) Fluid overload Seizure (HCC) Acute encephalopathy Brief Hospital Course: Dorie York is a 83 y/o male with PMH significant for HTN, prostate CA, L knee arthroplasty, and brain bleed/seizure (not currently on seizures meds). He developed dyspnea and lower extremity swelling since Thursday; at his PCP's office 06/21 he was found to have O2 sat 50%. He was transferred to ER at [facility], were he was found to have acute hypoxic and hypercapnic respiratory failure 2/2 pulmonary edema and possible CAP. There was also concern of possible seizure around that time. Eventually he was intubated and started on MV, then transferred to [facility]. Improvement seen with diuresis; will continue. Narrowed abx to levaquin only. Successfully liberated from ventilator , Assessment/Plan: NEURO Acute Encephalopathy (improved), ? Seizure - hx of brain injury/bleed and seizures ~ 2 years ago (not on anticonvulsants as he stopped taking them) - possible seizure in ER, most likely related to his respiratory failure - CT head: no acute intracranial process - no seizure activity seen since arrival to [facility] - when sedation lightened, pt awake and following commands PLAN - will hold off on EEG - fentanyl and propofol paused for possible extubation PULM Acute Hypoxic and Hypercapnic Respiratory Failure (improved) - 2/2 pulmonary edema +/- CAP - intubated at OSH - current vent settings: V/AC TV 480, rate 16, FiO2 30%, peep +5 - ABG this AM: 7.50 / 45 / 106 / 34.7 - lasix 40 mg IV at OSH --> net - 2 L - lasix 40 mg IV followed by 20 mg IV on 06/22 --> net - 1 L - ID w/u and tx as below PLAN - continue diuresis -- lasix 40 mg IV x 1 this AM - successfully liberated from ventilator; O2 at 2 L/NC CV HFpEF - no hx of heart disease reported - EKG: no ischemic changes - troponin 0.04 x 2 - BNP 370 - echo 06/22: technically difficulty study; LVEF 60-65% w/ no regional wall motion abnormalities; diastolic parameters indeterminate; RV dilated with mildly impaired function; mild to moderate TR; pulmonary HTN w/ peak pulmonary pressure 70 mmHg; no pericardial effusion PLAN - diuresis as above Hx HTN - monitor shows SR, rate 70s - SBP 100s-120s - hold [employer] BP meds for now RENAL - Cr 0.99 this AM - I/O: net - 1 L last 24 hrs w/ 2.1 L UOP (net - 3 L for admit) ENDO - TSH 3.1 - glucose 122 ID - concern for CAP initially, but appears more c/w volume overload --> improved with diuresis, negative procalcitonin - WBC 6.7 --> 5.9 this AM, afebrile - lactate 2.2 - RVP negative - UA 06/22: negative - strep pneumo and legionella urine Ags negative - tracheal aspirate 06/22: GS w/ no organisms seen; cx pending - blood cx 06/22: NGTD - procalcitonin 0.02 - dc ceftriaxone; continue levaquin HEME - hgb 12.1, plt 133 - INR 1.1, PTT 23.2 FEN - NPO - IVF: none - review electrolytes and replace as needed PPX: Lines: PIV x 2 Drains/Tubes: ET tube --> dc, OG tube --> dc Indwelling Urinary Catheter: Yes DVT: SCDs; Heparin GI: Pepcid PT/OT: Yes Insulin: No Reviewed Quality Checklist with RN: Yes Code Status: Full Code Disposition/Family: Continue ICU care. [id number] x 1 - pt critically ill with above diagnoses. I spent 55 minutes providing critical care services including: performing a physical examination serially reviewing laboratory, telemetry, hemodynamic, oximetry, and respiratory data reviewing radiographic images reviewing medications managing fluids/electrolytes, antibiotics, ICU prophylaxis, and mechanical ventilation developing the overall plan of care. Sakina Banks APRN Pulm/Critical Care Pager [phone] (2nd call/night) Pager [phone] 06/23/2018 1537 __ Subjective: Dorie York is a 83 y.o. male who is sedated on ventilator. Attempting to mouth words. ROS: unobtainable. Objective: Medications: Scheduled Meds: albuterol 0.5% (PROVENTIL; VENTOLIN) nebulizer solution 2.5 mg 2.5 mg Inhalation Q4H & PRN cefTRIAXone (ROCEPHIN) IVP 1 g 1 g Intravenous Q24H* chlorhexidine gluconate (PERIDEX) 0.12 % solution 15 mL 15 mL Swish & Spit BID famotidine (PEPCID) injection 20 mg 20 mg Intravenous BID heparin (porcine) PF syringe 5,000 Units 5,000 Units Subcutaneous Q8H ipratropium bromide (ATROVENT) 0.02 % nebulizer solution 0.5 mg 0.5 mg Inhalation Q4H & PRN levofloxacin (LEVAQUIN) 750 mg/150 mL IVPB 750 mg Intravenous Q24H* POTASSIUM CHLORIDE IN WATER 10 MEQ/50 ML IV PGBK (Cabinet Override) NOW potassium chloride in water IVPB 10 mEq 10 mEq Intravenous Q1H X 6DO Continuous Infusions: fentaNYL (SUBLIMAZE) 1000 mcg/ NS 100 mL IV infusion (std conc)(premade) 30 mcg/hr (06/23/18 0350) propofol (DIPRIVAN) 10 mg/mL IV infusion 10 mcg/kg/min (06/23/18 0209) PRN and Respiratory Meds: Vital Signs: Last Filed Vital Signs: 24 Hour Range BP: 124/79 (06/23 600) Temp: 37.1 C (98.8 F) (06/23 0400) Pulse: 83 (06/23 600) Respirations: 18 PER MINUTE (06/23 600) SpO2: 94 % (06/23 600) O2 Delivery: Endotracheal Tube (Oral) (06/23 600) SpO2 Pulse: 83 (06/23 600) Height: 173 cm (68.11") (06/22 1018) BP: (95-144)/(47-99) Temp: [37.1 C (98.7 F)-37.3 C (99.1 F)] Pulse: [63-100] Respirations: [0 PER MINUTE-24 PER MINUTE] SpO2: [94 %-100 %] O2 Delivery: Endotracheal Tube (Oral) Vitals: 06/22/18 0100 06/22/18 1018 Weight: 119.4 kg (263 lb 3.7 oz) 119.3 kg (263 lb) Intake/Output Summary: (Last 24 hours) Intake/Output Summary (Last 24 hours) at 06/23/18 0615 Last data filed at 06/23/18 0600 Gross per 24 hour Intake 1080.42 ml Output 2088 ml Net -1007.58 ml Physical Exam: General: cooperative, no distress, appears stated age Head: normocephalic, without obvious abnormality, atraumatic Eyes: conjunctivae/corneas clear, PERRL Lungs: clear throughout, diminished in bases Heart: regular rate and rhythm, no murmur appreciated Abdomen: soft, non-tender; bowel sounds active Extremities: normal, atraumatic, no cyanosis; 2+ BLE edema Peripheral pulses: 2+ and symmetric, all extremities Cap Refill: 3 seconds Skin: color, texture, turgor normal; no rashes or lesions Neurologic: sedated; when sedation lightened awake, mouthing words, and following commands Artificial airway: Endotracheal Tube Ventilator/ Respiratory Therapy: Yes: Mode: V/AC+ Set Vt (ml): [480 milliliters] Tidal Volume Spont (mL): [475 milliliters-511 milliliters] Set RR: [16 breaths/minutes] Total Respiratory Rate (Breaths/Min): [16 breaths/minutes] Minute Volume (L/min): [7.56 liters/minutes-8.31 liters/minutes] %MVspon: [0 %] O2%: [30 %] PIP Actual: [16 cm H20-18 cm H20] PEEP/CPAP: [5 cm H2O] Vent weaning trial: Per protocol Laboratory: LABS: Recent Labs 06/22/1812406/22/18 1727 06/23/18 0015 06/23/18437 NA 141 -- -- 135* K 4.1 3.6 2.5* 3.5 CL 100 -- -- 96* CO2 31* -- -- 35* GAP 10 -- -- 4 BUN 30* -- -- 22 CR 1.03 -- -- 0.99 GLU 111* -- -- 122* CA 8.6 -- -- 8.0* ALBUMIN 3.3* -- -- 2.7* MG 1.7 1.8 1.2* -- PO4 2.3 -- -- 2.7 TSH 3.100 -- -- -- Recent Labs 06/22/18 01206/22/18 0355 06/23/18437 WBC 6.7 -- 5.9 HGB 14.0 -- 12.1* HCT 41.8 -- 36.7* PLTCT 101* -- 133* INR -- 1.1 -- PTT -- 23.2 -- AST 22 -- 14 ALT 9 -- 7 ALKPHOS 58 -- 48 TNI 0.04 0.04 -- Estimated Creatinine Clearance: 73.6 mL/min (based on SCr of 0.99 mg/dL). Vitals: 06/22/18 0100 06/22/18 1018 Weight: 119.4 kg (263 lb 3.7 oz) 119.3 kg (263 lb) Recent Labs 06/22/18 0141 PHART 7.45 PO2ART 158* Radiology and Other Diagnostic Procedures Review: Reviewed pertinent studies. * Kerrie Piedra RN - 06/22/2018 10:32 PM CDT 1930: Report received and care assumed. Bedside safety check complete. Pt intubated and sedated, able to follow commands, nods appropriately. VS stable, per pt trend. Fentanyl and propofol drips verified. Assessment completed, see doc flowsheets. Will continue to monitor closely. 0000: Pt continues to have multiform PVCs noted on dayshift. Mag and potassium drawn. 0140: Dr. Foster notified K 2.5, Mag 1.2. Placed orders for replacement. * Brittney Nuñez RN - 06/22/2018 6:36 PM CDT 0700: Report received and care assumed. Bedside safety check completed. Pt intubated, calm and following commands. VSS per pt trends. 0800: Assessment completed per ICU flowsheet. at bedside. 1700: Sakina Banks APRN notified pt having multiform PVCs and orders to draw Mag and K. * Dwayne Myers MD - 06/22/2018 2:39 PM CDT Formatting of this note may be different from the original. MICU STAFF NOTE Name: Dorie York Code Status: Full Code Admission Date: 06/22/2018 I have independently seen, personally fully evaluated, and discussed patient with the Medical ICU team. The patient is critically ill with the conditions listed below: Principal Problem: Acute respiratory failure with hypoxia and hypercapnia (HCC) Active Problems: Community acquired pneumonia of right lower lobe of lung (HCC) Acute pulmonary edema (HCC) Fluid overload Seizure (HCC) Acute encephalopathy I spent 40 minutes (excluding time spent performing or supervising any procedures and independent of UNDERCOAT SPRAYER review) providing and personally directing critical care services including Systems and physical examination Review of laboratory data Review of telemetry data Review of imaging studies Review of medications Fluid and electrolyte management Coordination of care with consulting services Serial evaluations of respiratory and mental status Daily Impression/Plan: Pt remains critically ill with acute respiratory failure due to decompensated HFpEF, pulmonary edema and possibly pneumonia. Remains on mechanical ventilation, is awake and appropriate, but appears very weak and fatigued. Did not do well on weaning parameters this morning. Our plan will be to continue on antibiotics and diurese again today. Pt with good response to diuretics. Continue NPO status with expectation for extubation in am. Review of Systems: Review of systems not obtained from patient due to patient factors. Vitals: 06/22/18 1400 BP: (!) 126/99 Pulse: 67 Temp: SpO2: 100% Physical Exam: General: cooperative, no distress, appears stated age Head: normocephalic, without obvious abnormality, atraumatic Eyes: conjunctivae/corneas clear, PERRL Lungs: bilateral crackles, diminished in bases Heart: regular rate and rhythm, no murmur appreciated Abdomen: soft, non-tender; bowel sounds active Extremities: normal, atraumatic, no cyanosis; 2+ BLE edema Peripheral pulses: 2+ and symmetric, all extremities Cap Refill: 3 seconds Skin: color, texture, turgor normal; no rashes or lesions Neurologic: sedated; when sedation lightened awake, mouthing words, and following commands Results for orders placed or performed during the hospital encounter of (from the past 48 hour(s)) URINALYSIS DIPSTICK Collection Time: 06/22/18 1:12 AM # # Low-High Color,UA STRAW Turbidity,UA CLEAR CLEAR-CLEAR Specific [place]-Urine 1.006 1.003 - 1.035 pH,UA 5.0 5.0 - 8.0 Protein,UA NEG NEG-NEG Glucose,UA NEG NEG-NEG Ketones,UA 1+ (A) NEG-NEG Bilirubin,UA NEG NEG-NEG Blood,UA 2+ (A) NEG-NEG Urobilinogen,UA NORMAL NORM-NORMAL Nitrite,UA NEG NEG-NEG Leukocytes,UA NEG NEG-NEG Urine Ascorbic Acid, UA NEG NEG-NEG URINALYSIS, MICROSCOPIC Collection Time: 06/22/18 1:12 AM # # Low-High WBCs,UA 0-2 0 - 2 /HPF RBCs,UA 10-20 0 - 3 /HPF MucousUA TRACE LEGIONELLA ANTIGEN URINE,RAN Collection Time: 06/22/18 1:12 AM # # Low-High Battery Name LEGIONELLA URINE ANTIGEN Specimen Description URINE Special Requests NONE Antigen NEGATIVE Report Status FINAL 06/22/2018 STREPTOCOCCUS PNEUMO AG, URINE Collection Time: 06/22/18 1:12 AM # # Low-High Battery Name STREP PNEUMO AG, UR Specimen Description URINE Special Requests NONE Antigen NEGATIVE Report Status FINAL 06/22/2018 LACTIC ACID (BG - RAPID LACTATE) Collection Time: 06/22/18 1:19 AM # # Low-High Lactic Acid,BG 2.2 (H) 0.5 - 2.0 MMOL/L IONIZED CALCIUM Collection Time: 06/22/18 1:19 AM # # Low-High Ionized Calcium 0.98 (L) 1.0 - 1.3 MMOL/L CBC AND DIFF Collection Time: 06/22/18 1:25 AM # # Low-High White Blood Cells 6.7 4.5 - 11.0 K/UL RBC 4.00 (L) 4.4 - 5.5 M/UL Hemoglobin 14.0 13.5 - 16.5 GM/DL Hematocrit 41.8 40 - 50 % MCV 104.4 (H) 80 - 100 FL MCH 35.0 (H) 26 - 34 PG MCHC 33.5 32.0 - 36.0 G/DL RDW 14.2 11 - 15 % Platelet Count 101 (L) 150 - 400 K/UL MPV 7.6 7 - 11 FL Neutrophils 83 (H) 41 - 77 % Lymphocytes 10 (L) 24 - 44 % Monocytes 6 4 - 12 % Eosinophils 0 0 - 5 % Basophils 1 0 - 2 % Absolute Neutrophil Count 5.50 1.8 - 7.0 K/UL Absolute Lymph Count 0.70 (L) 1.0 - 4.8 K/UL Absolute Monocyte Count 0.40 0 - 0.80 K/UL Absolute Eosinophil Count 0.00 0 - 0.45 K/UL Absolute Basophil Count 0.10 0 - 0.20 K/UL COMPREHENSIVE METABOLIC PANEL Collection Time: 06/22/18 1:25 AM # # Low-High Sodium 141 137 - 147 MMOL/L Potassium 4.1 3.5 - 5.1 MMOL/L Chloride 100 98 - 110 MMOL/L Glucose 111 (H) 70 - 100 MG/DL Blood Urea Nitrogen 30 (H) 7 - 25 MG/DL Creatinine 1.03 0.4 - 1.24 MG/DL Calcium 8.6 8.5 - 10.6 MG/DL Total Protein 5.9 (L) 6.0 - 8.0 G/DL Total Bilirubin 1.1 0.3 - 1.2 MG/DL Albumin 3.3 (L) 3.5 - 5.0 G/DL Alk Phosphatase 58 25 - 110 U/L AST (SGOT) 22 7 - 40 U/L CO2 31 (H) 21 - 30 MMOL/L ALT (SGPT) 9 7 - 56 U/L Anion Gap 10 3 - 12 eGFR Non >60 >60 mL/min eGFR >60 >60 mL/min MAGNESIUM Collection Time: 06/22/18 1:25 AM # # Low-High Magnesium 1.7 1.6 - 2.6 mg/dL PHOSPHORUS Collection Time: 06/22/18 1:25 AM # # Low-High Phosphorus 2.3 2.0 - 4.5 MG/DL BNP (B-TYPE NATRIURETIC PEPTI) Collection Time: 06/22/18 1:25 AM # # Low-High B Type Natriuretic Peptide 370.0 (H) 0 - 100 PG/ML TSH WITH FREE T4 REFLEX Collection Time: 06/22/18 1:25 AM # # Low-High TSH 3.100 0.35 - 5.00 MCU/ML TROPONIN-I Collection Time: 06/22/18 1:25 AM # # Low-High Troponin-I 0.04 0.0 - 0.05 NG/ML BLOOD GASES, ARTERIAL Collection Time: 06/22/18 1:41 AM # # Low-High pH-Arterial 7.45 7.35 - 7.45 pCO2-Arterial 49 (H) 35 - 45 MMHG pO2-Arterial 158 (H) 80 - 100 MMHG Base Excess-Arterial 7.9 MMOL/L O2 Sat-Arterial 99.4 (H) 95 - 99 % Gddjhpebkyu-WVQ-Qnm 31.7 (H) 21 - 28 MMOL/L CULTURE-RESP,LOWER W/SENSITIVITY Collection Time: 06/22/18 2:02 AM # # Low-High Battery Name LOWER RESP CULTURE Specimen Description TRACHEAL ASPIRATE Special Requests NONE Direct Gram Stain LESS THAN 10/LPF NEUTROPHILS LESS THAN 10/LPF SQUAMOUS EPITHELIAL CELLS NO ORGANISMS SEEN Culture Report Status RVP VIRAL PANEL PCR Collection Time: 06/22/18 2:02 AM # # Low-High Specimen Source NASAL WASH Adenovirus NOT DETECTED Coronavirus 229E NOT DETECTED Coronavirus HKU1 NOT DETECTED Coronavirus NL63 NOT DETECTED Coronavirus OC43 NOT DETECTED Human Metapneumovirus NOT DETECTED Human Rhinovirus/ENTEROVIRUS NOT DETECTED Influenza A H1N1 2009 NOT DETECTED Influenza A H1 NOT DETECTED Influenza A H3 NOT DETECTED Influenza B NOT DETECTED Parainfluenza 1 NOT DETECTED Parainfluenza 2 NOT DETECTED Parainfluenza 3 NOT DETECTED Parainfluenza 4 NOT DETECTED RSV NOT DETECTED Bordetella Pertussis NOT DETECTED Chlamydophila Pneumoniae NOT DETECTED Mycoplasma Pneumoniae NOT DETECTED GRAM STAIN Collection Time: 06/22/18 2:02 AM # # Low-High Battery Name GRAM STAIN Specimen Description TRACHEAL ASPIRATE Special Requests NONE Gram Stain LESS THAN 10/LPF NEUTROPHILS LESS THAN 10/LPF SQUAMOUS EPITHELIAL CELLS NO ORGANISMS SEEN Report Status FINAL 06/22/2018 TROPONIN-I Collection Time: 06/22/18 3:55 AM # # Low-High Troponin-I 0.04 0.0 - 0.05 NG/ML PTT (APTT) Collection Time: 06/22/18 3:55 AM # # Low-High APTT 23.2 20.0 - 36.0 SEC PROTIME INR (PT) Collection Time: 06/22/18 3:55 AM # # Low-High INR 1.1 0.8 - 1.2 @IMAGES@ Reviewed images. * Sakina Banks, JESUS - 06/22/2018 6:25 AM CDT Formatting of this note may be different from the original. Pulmonary / Critical Care Progress Note Dorie York Today's Date: 06/22/2018 Admission Date: 06/22/2018 LOS: 0 days Principal Problem: Acute respiratory failure with hypoxia and hypercapnia (HCC) Active Problems: Community acquired pneumonia of right lower lobe of lung (HCC) Acute pulmonary edema (HCC) Fluid overload Seizure (HCC) Acute encephalopathy Brief Hospital Course: Dorie York is a 83 y/o male with PMH significant for HTN, prostate CA, L knee arthroplasty, and brain bleed/seizure (not currently on seizures meds). He developed dyspnea and lower extremity swelling since Thursday; at his PCP's office 06/21 he was found to have O2 sat 50%. He was transferred to ER at [facility], were he was found to have acute hypoxic and hypercapnic respiratory failure 2/2 pulmonary edema and possible CAP. There was also concern of possible seizure around that time. Eventually he was intubated and started on MV, then transferred to [facility]. Pt remains on ventilator, but awake and alert. Improvement seen with diuresis; will continue. Assessment/Plan: NEURO Acute Encephalopathy (improved), ? Seizure - hx of brain injury/bleed and seizures ~ 2 years ago (not on anticonvulsants as he stopped taking them) - possible seizure in ER, most likely related to his respiratory failure - CT head: no acute intracranial process - no seizure activity seen since arrival to [facility] - when sedation lightened, pt awake and following commands PLAN - will hold off on EEG - utilize fentanyl and/or propofol for sedation PULM Acute Hypoxic and Hypercapnic Respiratory Failure - 2/2 pulmonary edema +/- CAP - intubated at OSH - current vent settings: V/AC TV 480, rate 16, FiO2 60%, peep +7 - ABG this AM: 7.45 / 49 / 158 / 31.7 - lasix 40 mg IV at OSH --> net - 2 L since arrival here - ID w/u and tx as below PLAN - wean FiO2/peep as able - continue diuresis -- lasix 40 mg IV x 1 this AM, then re-evaluate - PS trial today, but not ready for extubation; remains weak CV Concerns for Volume Overload and Pulmonary Edema/CHF - no hx of heart disease reported - EKG: no ischemic changes - troponin 0.04 x 2 - BNP 370 PLAN - obtain echo - diuresis as above Hx HTN - monitor shows SR, rate 60s-70s - SBP 120s-130s - hold [employer]OD [employer] BP meds for now RENAL - Cr 1.03 - I/O: net - 2 L since admit with 2.1 L UOP ENDO - TSH 3.1 - glucose 111 ID Concern for CAP - WBC 6.7, afebrile - lactate 2.2 - RVP negative - UA 06/22: negative - strep pneumo and legionella urine Ags negative - tracheal aspirate 06/22: GS w/ no organisms seen; cx pending - blood cx pending - procalcitonin pending - continue ceftriaxone and levaquin HEME - hgb 14.0, plt 101 - INR 1.1, PTT 23.2 FEN - NPO - IVF: none - review electrolytes and replace as needed PPX: Lines: PIV x 2 Drains/Tubes: ET tube, OG tube Indwelling Urinary Catheter: Yes DVT: SCDs; Heparin GI: Pepcid PT/OT: Yes Insulin: No Reviewed Quality Checklist with RN: Yes Code Status: Full Code Disposition/Family: Continue ICU care. [id number] x 1 - pt critically ill with above diagnoses. I spent 55 minutes providing critical care services including: performing a physical examination serially reviewing laboratory, telemetry, hemodynamic, oximetry, and respiratory data reviewing radiographic images reviewing medications managing fluids/electrolytes, antibiotics, ICU prophylaxis, and mechanical ventilation developing the overall plan of care. Sakina Banks APRN Pulm/Critical Care Pager [phone] M2 (2nd call/night) Pager [phone] 06/22/2018 1246 __ Subjective: Dorie York is a 83 y.o. male who is sedated on ventilator. ROS: unobtainable. Objective: Medications: Scheduled Meds: albuterol 0.5% (PROVENTIL; VENTOLIN) nebulizer solution 2.5 mg 2.5 mg Inhalation Q4H & PRN cefTRIAXone (ROCEPHIN) IVP 1 g 1 g Intravenous Q24H* chlorhexidine gluconate (PERIDEX) 0.12 % solution 15 mL 15 mL Swish & Spit BID famotidine (PEPCID) injection 20 mg 20 mg Intravenous BID heparin (porcine) PF syringe 5,000 Units 5,000 Units Subcutaneous Q8H ipratropium bromide (ATROVENT) 0.02 % nebulizer solution 0.5 mg 0.5 mg Inhalation Q4H & PRN levofloxacin (LEVAQUIN) 750 mg/150 mL IVPB 750 mg Intravenous Q24H* LORAZEPAM 2 MG/ML IJ SOLN (Cabinet Override) NOW magnesium sulfate 1 g/D5W 100 mL IVPB 1 g Intravenous Q1H X 2DO Continuous Infusions: propofol (DIPRIVAN) 10 mg/mL IV infusion PRN and Respiratory Meds: Vital Signs: Last Filed Vital Signs: 24 Hour Range BP: 129/62 (06/22 0600) Temp: 36.2 C (97.1 F) (10/09 0400) Pulse: 65 (06/22 700) Respirations: 15 PER MINUTE (06/22 700) SpO2: 99 % (06/22 700) SpO2 Pulse: 64 (06/22 700) Height: 172.7 cm (68") (06/22 100) BP: (113-148)/(62-118) Temp: [36.1 C (96.9 F)-36.2 C (97.1 F)] Pulse: [61-71] Respirations: [14 PER MINUTE-19 PER MINUTE] SpO2: [98 %-100 %] Vitals: Weight: 119.4 kg (263 lb 3.7 oz) Intake/Output Summary: (Last 24 hours) Intake/Output Summary (Last 24 hours) at 06/22/18748 Last data filed at 06/22/18699 Gross per 24 hour Intake 150 ml Output 2130 ml Net -1980 ml Physical Exam: General: cooperative, no distress, appears stated age Head: normocephalic, without obvious abnormality, atraumatic Eyes: conjunctivae/corneas clear, PERRL Lungs: bilateral crackles, diminished in bases Heart: regular rate and rhythm, no murmur appreciated Abdomen: soft, non-tender; bowel sounds active Extremities: normal, atraumatic, no cyanosis; 2+ BLE edema Peripheral pulses: 2+ and symmetric, all extremities Cap Refill: 3 seconds Skin: color, texture, turgor normal; no rashes or lesions Neurologic: sedated; when sedation lightened awake, mouthing words, and following commands Artificial airway: Endotracheal Tube Ventilator/ Respiratory Therapy: Yes: Mode: V/AC+ Set Vt (ml): [480 milliliters] Tidal Volume Spont (mL): [413 milliliters-521 milliliters] Set RR: [16 breaths/minutes] Total Respiratory Rate (Breaths/Min): [16 breaths/minutes] Minute Volume (L/min): [7.63 liters/minutes-7.85 liters/minutes] %MVspon: [0 %] O2%: [60 %-80 %] PIP Actual: [19 cm H20-22 cm H20] PEEP/CPAP: [7 cm H2O] Vent weaning trial: Per protocol Laboratory: LABS: Recent Labs 06/22/18 0125 NA 141 K 4.1 CL 100 CO2 31* GAP 10 BUN 30* CR 1.03 GLU 111* CA 8.6 ALBUMIN 3.3* MG 1.7 PO4 2.3 TSH 3.100 Recent Labs 06/22/18 0125 06/22/18 0355 WBC 6.7 -- HGB 14.0 -- HCT 41.8 -- PLTCT 101* -- INR -- 1.1 PTT -- 23.2 AST 22 -- ALT 9 -- ALKPHOS 58 -- TNI 0.04 0.04 Estimated Creatinine Clearance: 70.6 mL/min (based on SCr of 1.03 mg/dL). Vitals: 06/22/18 0100 Weight: 119.4 kg (263 lb 3.7 oz) Recent Labs 06/22/18 0141 PHART 7.45 PO2ART 158* Radiology and Other Diagnostic Procedures Review: Reviewed pertinent studies. * Leonie Trammell RN - 06/22/2018 2:30 AM CDT Patient arrived to room 6312 via cart accompanied by transport. Patient transferred to the bed with assistance. Bedside safety checks completed. Initial patient assessment completed, refer to flowsheet for details. Admission skin assessment completed by: Pressure Injury Present on Hospital Admission (within 24 hours): No 1. Occiput: No 2. Ear: No 3. Scapula: No 4. Spinous Process: No 5. Shoulder: No 6. Elbow: No 7. Iliac Crest: No 8. Sacrum/Coccyx: No 9. Ischial Tuberosity: No 10. Trochanter: No 11. Knee: No 12. Malleolus: No 13. Heel: No 14. Toes: No 15. Assessed for device associated injury Yes 16. Nursing Nutrition Assessment Completed Yes See Doc Flowsheet for additional wound details. INTERVENTIONS: Foam boots placed & q2 turns in this encounter H&P Notes * Lia Foster MD - 06/22/2018 1:25 AM CDT Formatting of this note may be different from the original. Critical Care Admission History and Physical Assessment Name: Dorie York Admission Date: 06/22/2018 Active Problems: Acute respiratory failure with hypercapnia (HCC) Community acquired pneumonia of right lower lobe of lung (HCC) Acute pulmonary edema (HCC) Fluid overload Seizure (HCC) Assessment and Plan NEURO: - Unclear hx of brain bleed and hx of seizures ( not on anticonvulsants as he stopped taking them ) - no enough hx available, will need to talk to family today or get records. - possible seizure in ER carey, I feel this is related to his respiratory failure. - CT head , no acute intracranial process. - Will get EEG today, - no seizures here at [facility]. - pt awake, and following commands. - propofol for sedation - consider neurology consult if he developed seizure. CV: - concerns for fluid overload and pulmonary edema/ CHF - S/P 20+20 mg of IV Lasix - no hx of heart disease reported. - hx of HTN, will hold NEIGHB[employer]OD [employer] BP meds for now. - EKG no ischemic changes - Cycle troponin - check 2d echo. PULM: - acute hypercapnic hypoxemic respiratory failure 2/2 pulmonary edema and or CAP. - started on MV , continue MV for now, wean as able. - Lasix for pulmonary edema, and Abx for possible CAP. GI: - No acute issues. RENAL: - No acute issues. ENDO: - no acute issues ID: - Concers for CAP. - Check blood cx and sputum Cx - Will obtain micro work up : procalcitonin, RVP , urine Ag for Legionella and strep pneumo - ceftriaxone and levaquin pending micro work up. HEME: - No acute issues. Prophylaxis Review: Lines: Peripheral Line Tubes: ETT IVF: S/L Electrolytes: Reviewed and replaced as needed. Diet: No Insulin: No Urinary Catheter: Yes VTE ppx: Heparin ; SCDs GI ppx: Famotidine PT/OT: No Code status: Full Code Disposition: Admit to the MICU. - [id number] x 1 Pt critically ill with the above diagnoses. I spent 70 minutes providing critical care services including: reviewing outside records and obtaining history from the patient/family members performing a physical examination serially reviewing laboratory, telemetry, hemodynamic, oximetry, and respiratory data reviewing radiographic images reviewing medications managing fluids/electrolytes, antibiotics, ICU prophylaxis, and mechanical ventilation developing the overall plan of care 06/22/2018 Lia Foster Pulm/CCM Staff M2 team pager (2nd call/nights) [phone] Primary Care Physician: No primary care provider on file. CHIEF COMPLAINT: Dyspnea HISTORY OF PRESENT ILLNESS: Dorie York is a 83 y.o. male With hx of HTN, prostate CA, left knee arthroplasty, brain bleed/seizure, not on seizures meds. He developed dyspnea and lower ext swellings since Thursday, at his PCP office yesterday he was found to have low O2sat of 50%. He was transferred to ER at [facility], were he was found to have acute hypercapnic respiratory failure secondary to pulmonary edema and possible CAP, hypoxemia continued to get worse and he developed severe hypercapnia also, there was concerns of possible seizure around that time. Eventually he was intubated and started on MV. Then he was transferred to . Pt is not able to provide hx for me and there is no family available PMH: Past Medical History: Diagnosis Date Arthritis, salmonella (HCC) HTN (hypertension) Prostate cancer (HCC) PSH: Past Surgical History: Procedure Laterality Date KNEE ARTHROPLASTY SOCIAL HISTORY: Social History Social History Marital status: N/A Spouse name: N/A Number of children: N/A Years of education: N/A Social History Main Topics Smoking status: Not on file Smokeless tobacco: Not on file Alcohol use No Drug use: No Sexual activity: Not on file Other Topics Concern Not on file Social History Narrative No narrative on file FAMILY HISTORY: Family History Problem Relation Age of Onset Heart Failure Mother IMMUNIZATIONS: There is no immunization history on file for this patient. ALLERGIES: Patient has no known allergies. HOME MEDICATIONS: No prescriptions prior to admission. Vital Signs: Vitals: 06/22/18 0400 06/22/18 0429 06/22/18 0500 06/22/18 0600 BP: 113/75 132/66 (!) 157/141 Pulse: 63 61 66 71 Temp: 36.2 C (97.1 F) SpO2: 100% 99% 100% 99% Weight: Height: Review of Systems: Unable to perform it as patient is intubated. Physical Exam: General: sedated , intubated Head: Normocephalic, without obvious abnormality, atraumatic Eyes: Conjunctivae/corneas clear. PERRL Mouth/throat: Moist mucous membranes, ETT in place Neck: Supple, symmetrical, trachea midline Lungs: BL crackles ; no wheeze Heart: Regular rate and rhythm, S1, S2 normal, no murmur appreciated Abdomen: Soft, non-tender. Bowel sounds normal. Extremities: + 4 pitting edema BL Pulses: 2+ and symmetric, all extremities Skin: No rashes or lesions noted Neurologic: sedated, once awake, was following command, non focal. Artificial Airway Endotracheal Tube Ventilator/Respiratory Therapy Yes: Mode: V/AC+ Set Vt (ml): [480 milliliters] Tidal Volume Spont (mL): [413 milliliters-521 milliliters] Set RR: [14 breaths/minutes-16 breaths/minutes] Total Respiratory Rate (Breaths/Min): [14 breaths/minutes-16 breaths/minutes] Minute Volume (L/min): [6.79 liters/minutes-7.85 liters/minutes] %MVspon: [0 %] O2%: [60 %-80 %] PIP Actual: [20 cm H20-22 cm H20] PEEP/CPAP: [7 cm H2O] Vent Weaning Per protocol Laboratory: Recent Labs 06/22/18 0125 NA 141 K 4.1 CL 100 CO2 31* GAP 10 BUN 30* CR 1.03 GLU 111* CA 8.6 ALBUMIN 3.3* MG 1.7 PO4 2.3 TSH 3.100 Recent Labs 06/22/18 0125 06/22/18 0355 WBC 6.7 -- HGB 14.0 -- HCT 41.8 -- PLTCT 101* -- INR -- 1.1 PTT -- 23.2 AST 22 -- ALT 9 -- ALKPHOS 58 -- TNI 0.04 0.04 Estimated Creatinine Clearance: 70.6 mL/min (based on SCr of 1.03 mg/dL). Vitals: 06/22/18 0100 Weight: 119.4 kg (263 lb 3.7 oz) Recent Labs 06/22/18 0141 PHART 7.45 PO2ART 158* Radiology and Other Diagnostic Procedures Review: Reviewed in this encounter Consult Notes * Joann Hill MD - 06/27/2018 12:56 PM CDT Associated Order(s): CONSULT HEART FAILURE PHYSICIAN Formatting of this note may be different from the original. CARDIOLOGY CONSULT SERVICE INITIAL CONSULT NOTE TODAY'S DATE: 06/27/2018 PATIENT NAME: Dorie York | ADMISSION DATE: 06/22/2018 LOS: 5 days REASON FOR CONSULT: HFpEF ACTIVE HOSPITAL PROBLEM LIST: Principal Problem: Acute respiratory failure with hypoxia and hypercapnia (HCC) Active Problems: Community acquired pneumonia of right lower lobe of lung (HCC) Acute pulmonary edema (HCC) Fluid overload Seizure disorder as sequela of cerebrovascular accident (HCC) Acute diastolic CHF (congestive heart failure) (HCC) Oropharyngeal dysphagia Mild cognitive impairment IMPRESSION: # Chronic multifactorial respiratory failure - Likely has ROBBI/OHS - Morbid obesity with impaired respiratory mechanics - >60 p/y of smoking # Pulmonary hypertension - Likely from prolonged hypoxemia from pulmonary disease - Cor pulmonale? RECOMMENDATIONS: - Continue with current medication regimen - Pulmonary follow up as his main problem stems from his pulmonary pathology - Outpatient cardiology follow up for further workup and possible RHC Thank you for the opportunity to participate in the care of this patient. Mr. York was seen and plan of care discussed with Dr. Jey Meza. Please call or page with questions. After 5PM please call network control operators supervisor husbandry person. Thursday - Thursday 8AM-5PM please call Cardiology consult pager. -- Marce ZAPATA CVD Fellow P; [phone] HPI: Dorie York is a 83 y.o. male with PMHx of morbid obesity, more than 60 pack years of smoking, HTN, prostate CA, traumatic SDH with subsequent seizure disorder, who was transferred to from OSH intubated for acute hypoxemic and hypercapnic respiratory failure. He reports long-standing chronic lower extremity edema which is usually mild and responds to positioning and massage. Following mild increase in lower extremity edema over the past couple of weeks patient was seen to his PCP office and was found to be hypoxemic to 50s on room air so was referred to ED or he was found to be severely hypercapnic as well as hypoxemic. He got intubated and later transferred to for further assessment. He was never diagnosed with any cardiac or pulmonary disease in the past, and never had similar symptomatology. Denies having fever or chills, CP, SOA, PACE, palpitations, or any change in his diet recently. Here in the ED his CXR was consistent with pulmonary congestion with small left- sided pleural effusion and bilateral patchy consolidation concerning for comminuted acquired pneumonia. There is a 5-day course of antibiotics despite having negative pro-Sarah and sputum culture. His BNP was 370 on admission his ECG was showing normal sinus rhythm with frequent APCs and PVCs. He underwent TTE which showed an LVEF of 60% with mild to moderate TR and PA SP of 70 mmHg. He was diuresed and eventually extubated and is currently feeling well on 3 L NC. Pulmonary was consulted suggesting possible ROBBI/OHS with chronic hypercapnic respiratory failure for which they are suggesting outpatient polysomnography. Cardiology was consulted to assess for possible HFpEF. On my evaluation patient is laying in bed very nasal cannula and is not in any distress. Denies any symptoms at the moment. Past Medical History: Diagnosis Date Arthritis, salmonella (HCC) HTN (hypertension) Prostate cancer (HCC) Past Surgical History: Procedure Laterality Date KNEE ARTHROPLASTY Social History Social History Marital status: Spouse name: N/A Number of children: N/A Years of education: N/A Social History Main Topics Smoking status: Former Smoker Packs/day: 2.00 Years: 35.00 Types: Cigarettes Quit date: 06/24/1978 Smokeless tobacco: Never Used Alcohol use No Drug use: No Sexual activity: Not on file Other Topics Concern Not on file Social History Narrative No narrative on file Family History Problem Relation Age of Onset Heart Failure Mother ALLERGIES: Patient has no known allergies. CURRENT FACILITY MEDICATIONS: Scheduled Meds: carvedilol (COREG) tablet 3.125 mg 3.125 mg Oral BID enoxaparin (LOVENOX) syringe 40 mg 40 mg Subcutaneous QDAY(21) furosemide (LASIX) tablet 40 mg 40 mg Oral QDAY latanoprost (XALATAN) 0.005 % ophthalmic solution 1 drop 1 drop Left Eye QHS lisinopril (PRINIVIL; ZESTRIL) tablet 10 mg 10 mg Oral QDAY spironolactone (ALDACTONE) tablet 25 mg 25 mg Oral QDAY Continuous Infusions: PRN and Respiratory Meds: REVIEW OF SYSTEMS: A 10-point review of systems was negative except for those items noted in the HPI. Vital Signs: Last Filed in 24 hours Vital Signs: 24 hour Range BP: 127/60 (06/27 1159) Temp: 36.4 C (97.6 F) (06/27 1159) Pulse: 81 (06/27 1159) Respirations: 18 PER MINUTE (06/27 1159) SpO2: 94 % (06/27 1159) O2 Delivery: High Flow Nasal Cannula (06/27 1159) BP: (120-143)/(54-67) Temp: [36.4 C (97.6 F)-37 C (98.6 F)] Pulse: [81-93] Respirations: [18 PER MINUTE-22 PER MINUTE] SpO2: [93 %-96 %] O2 Delivery: High Flow Nasal Cannula INTAKE/OUTPUT SUMMARY (Last 24 hours): Intake/Output Summary (Last 24 hours) at 06/27/18 1256 Last data filed at 06/27/18 1246 Gross per 24 hour Intake 720 ml Output 230 ml Net 490 ml PHYSICAL EXAMINATION: General: Alert, cooperative, no distress, wears O2 NC, morbidly obese Head: Normocephalic, atraumatic Eyes: Conjunctivae/corneas clear, EOM intact Throat: Mucous membranes dry Neck: Supple, symmetric, + hepatojugular reflux, + JVD Lungs: Crackles at bases b/l Heart: Regular rate and rhythm, normal S1/S2, Early SM 2/6 best heard at LSB Abdomen: Soft, obese, non-tender, normal bowel sounds, no palpable masses Extremities: Extremities normal, atraumatic, no cyanosis, trace LE edema Pulses: Symmetric and 2+ in all extremities Neurologic: CNII - XII grossly intact. POC TESTING (Last 24 hours): Glucose: (!) 103 (06/27/18 0457) LAB/OTHER DIAGNOSTIC TESTIN-hour labs: Results for orders placed or performed during the hospital encounter of (from the past 24 hour(s)) BLOOD GASES, PERIPHERAL VENOUS Collection Time: 06/26/18 2:29 PM Result Value Ref Range pH-Venous 7.33 7.30 - 7.40 PCO2-Venous 84 (H) 36 - 50 MMHG PO2-Venous 26 (L) 33 - 48 MMHG Base Excess-Venous 13.3 MMOL/L O2 Sat-Venous 44.7 (L) 55 - 71 % [id number]-APH-Nby 35.8 MMOL/L PHOSPHORUS Collection Time: 06/27/18 4:57 AM Result Value Ref Range Phosphorus 2.7 2.0 - 4.5 MG/DL MAGNESIUM Collection Time: 06/27/18 4:57 AM Result Value Ref Range Magnesium 1.8 1.6 - 2.6 mg/dL COMPREHENSIVE METABOLIC PANEL Collection Time: 06/27/18 4:57 AM Result Value Ref Range Sodium 140 137 - 147 MMOL/L Potassium 3.8 3.5 - 5.1 MMOL/L Chloride 93 (L) 98 - 110 MMOL/L Glucose 103 (H) 70 - 100 MG/DL Blood Urea Nitrogen 23 7 - 25 MG/DL Creatinine 0.80 0.4 - 1.24 MG/DL Calcium 8.7 8.5 - 10.6 MG/DL Total Protein 5.6 (L) 6.0 - 8.0 G/DL Total Bilirubin 0.6 0.3 - 1.2 MG/DL Albumin 3.1 (L) 3.5 - 5.0 G/DL Alk Phosphatase 46 25 - 110 U/L AST (SGOT) 15 7 - 40 U/L CO2 42 (H) 21 - 30 MMOL/L ALT (SGPT) 9 7 - 56 U/L Anion Gap 5 3 - 12 eGFR Non >60 >60 mL/min eGFR >60 >60 mL/min CBC AND DIFF Collection Time: 06/27/18 4:57 AM Result Value Ref Range White Blood Cells 3.7 (L) 4.5 - 11.0 K/UL RBC 3.69 (L) 4.4 - 5.5 M/UL Hemoglobin 12.6 (L) 13.5 - 16.5 GM/DL Hematocrit 39.0 (L) 40 - 50 % MCV 105.7 (H) 80 - 100 FL MCH 34.1 (H) 26 - 34 PG MCHC 32.3 32.0 - 36.0 G/DL RDW 14.1 11 - 15 % Platelet Count 141 (L) 150 - 400 K/UL MPV 7.5 7 - 11 FL Neutrophils 72 41 - 77 % Lymphocytes 14 (L) 24 - 44 % Monocytes 13 (H) 4 - 12 % Eosinophils 1 0 - 5 % Basophils 0 0 - 2 % Absolute Neutrophil Count 2.70 1.8 - 7.0 K/UL Absolute Lymph Count 0.50 (L) 1.0 - 4.8 K/UL Absolute Monocyte Count 0.50 0 - 0.80 K/UL Absolute Eosinophil Count 0.00 0 - 0.45 K/UL Absolute Basophil Count 0.00 0 - 0.20 K/UL BLOOD GASES, PERIPHERAL VENOUS Collection Time: 06/27/18 5:35 AM Result Value Ref Range pH-Venous 7.34 7.30 - 7.40 PCO2-Venous 82 (H) 36 - 50 MMHG PO2-Venous 48 33 - 48 MMHG Base Excess-Venous 13.5 MMOL/L O2 Sat-Venous 81.7 (H) 55 - 71 % Yjubzomximb-MOC-Akv 36.9 MMOL/L OTHER RADIOLOGY/DIAGNOSTICS: Pertinent radiology reviewed. Associated attestation - Lia Cabello MD - 06/28/2018 12:20 AM CDT I personally performed the george portions of today's inpatient cardiology rounding encounter. I reviewed the patient's reported symptoms and concerns and pertinent objective data. I discussed and reviewed the history, physical examination with the fellow Joann Cardozo with attention to the assessment and treatment plan. Patient with HFpEF responded well to diuresis in the hospital. Switch to oral diuresis and he has an appointment with Dr. Ariel Henry in the outpatient setting. Lia Meza MD, MS Advanced Heart Failure [facility] Heart Transplant [facility] Pager: [phone] * Rosio Dodd MD - 06/27/2018 11:48 AM CDT Associated Order(s): CONSULT PULMONARY/CRITICAL CARE PHYSICIAN Formatting of this note may be different from the original. Pulmonary and Critical Care Medicine Consult Admission Date: 06/22/2018 LOS: 5 days Reason for Consult: lethargy and PCO2 in 70's Impression: This is a 83-year-old with past medical history of hypertension, prostate cancer and obesity was admitted with acute diastolic congestive heart failure exacerbation. Chest x-ray was consistent with pulmonary vascular congestion and small left pleural effusion. 1. Acute diastolic congestive heart failure 2. Possible sleep apnea 3. Obesity hypoventilation syndrome 4. Acute on chronic hypercapnic respiratory failure 5. Chronic nasal congestion Recommendation: 1. Recommend out patient sleep study to rule out obstructive sleep apnea. He is closer to via [facility]. He would like to get it done there. We will be more than happy to see him after the sleep study. Please arrange a follow up in a month from now. 2. Recommend Singulair 10 mg q day for chronic nasal congestion. 3. Recommend giving diamox 500 mg once today for the metabolic alkalosis. May be intravascularly volume depleted. 4. Recommend weight loss. 5. Recommend pulmonary hygiene with IS and flutter valve. Thank you for the consult. We will follow along. History of Present Illness: The patient is a 83 y.o. male with a history of hypertension, prostate cancer and obesity was admitted with dyspnea and lower extremity swelling since Thursday and was also found to have low oxygen saturation around 50%. He was transferred to ER from his primary care physician 's office at [facility] where he was found to be in acute hypercapnic respiratory failure. His hypoxemia continued to get worse as his severe hypercapnia also. He was intubated and which is transferred to for further management. He had an echocardiogram on 06/22/2018 which showed ejection fraction of 60-65% with pulmonary hypertension and peak pressures of 70 mmHg. Patient was extubated on 06/23/2018 and now currently on 2-3 L of supplemental oxygen. He was not on any supplemental oxygen before he came into the hospital. Infectious workup was negative on admission. He was noted to have lethargy and confusion immediately upon awakening this morning which quickly resolved. He had a VBG done this morning which showed pH of 7.34 and PCO2 of 82 with bicarb of 37. He denies any SOB or chest pain. No cough or palpitations. He has chronic nasal congestion and is currently having sinus congestion. He denies snoring, but sleeps in his recliner for the most part. He feels tired and sleepy during daytime. He feels refreshed for the most part. He does not wake up with headaches in the morning. He sleeps from 10:30pm to 6:00am. He dozes off multiple times during daytime. Past Medical History: Past Medical History: Diagnosis Date Arthritis, salmonella (HCC) HTN (hypertension) Prostate cancer (HCC) Past Surgical History: Past Surgical History: Procedure Laterality Date KNEE ARTHROPLASTY Social History: Social History Social History Marital status: Spouse name: N/A Number of children: N/A Years of education: N/A Social History Main Topics Smoking status: Former Smoker Packs/day: 2.00 Years: 35.00 Types: Cigarettes Quit date: 06/24/1978 Smokeless tobacco: Never Used Alcohol use No Drug use: No Sexual activity: Not on file Other Topics Concern Not on file Social History Narrative No narrative on file Family History: Family History Problem Relation Age of Onset Heart Failure Mother Allergies: Patient has no known allergies. Scheduled Meds: carvedilol (COREG) tablet 3.125 mg 3.125 mg Oral BID enoxaparin (LOVENOX) syringe 40 mg 40 mg Subcutaneous QDAY(21) furosemide (LASIX) tablet 40 mg 40 mg Oral QDAY latanoprost (XALATAN) 0.005 % ophthalmic solution 1 drop 1 drop Left Eye QHS levoFLOXacin (LEVAQUIN) oral solution 750 mg 750 mg Oral ONCE lisinopril (PRINIVIL; ZESTRIL) tablet 10 mg 10 mg Oral QDAY spironolactone (ALDACTONE) tablet 25 mg 25 mg Oral QDAY Continuous Infusions: PRN and Respiratory Meds: Review of Systems: All 10 systems reviewed and negative except for those in HPI. Vital Signs: Last Filed in 24 hours Vital Signs: 24 hour Range BP: 120/67 (06/27 753) Temp: 36.7 C (98.1 F) (06/27 753) Pulse: 91 (06/27 753) Respirations: 22 PER MINUTE (06/27 753) SpO2: 93 % (06/27 753) O2 Delivery: Nasal Cannula (06/27 753) BP: (120-143)/(54-68) Temp: [36.5 C (97.7 F)-37 C (98.6 F)] Pulse: [86-93] Respirations: [18 PER MINUTE-22 PER MINUTE] SpO2: [93 %-96 %] O2 Delivery: Nasal Cannula Physical Exam: Constitutional: He is oriented to person, place, and time. He appears well- developed. HENT: Head: Normocephalic and atraumatic. Eyes: Conjunctivae and EOM are normal. Pupils are equal, round, and reactive to light. Neck: Normal range of motion. Neck supple. Cardiovascular: Normal rate, regular rhythm, normal heart sounds and intact distal pulses. Pulmonary/Chest: Effort normal and breath sounds diminished at bases. Minimal crackles at bases. Abdominal: Soft. Bowel sounds are normal. Musculoskeletal: Normal range of motion. Neurological: He is alert and oriented to person, place, and time. He has normal reflexes. Skin: Skin is warm and dry. Psychiatric: He has a normal mood and affect. Nursing note and vitals reviewed. Lab: Pertinent laboratory reviewed. Results for DORIE YORK ( ) as of 06/27/2018 11:45 Ref. Range 06/27/2018 05:35 pH-Venous Latest Ref Range: 7.30 - 7.40 7.34 PCO2-Venous Latest Ref Range: 36 - 50 MMHG 82 (H) PO2-Venous Latest Ref Range: 33 - 48 MMHG 48 [id number]-BVZ-Vaf Latest Units: MMOL/L 36.9 Base Excess-Venous Latest Units: MMOL/L 13.5 O2 Sat-Venous Latest Ref Range: 55 - 71 % 81.7 (H) Results for DORIE YORK ( ) as of 06/27/2018 11:45 Ref. Range 06/27/2018 04:57 Sodium Latest Ref Range: 137 - 147 MMOL/L 140 Potassium Latest Ref Range: 3.5 - 5.1 MMOL/L 3.8 Chloride Latest Ref Range: 98 - 110 MMOL/L 93 (L) CO2 Latest Ref Range: 21 - 30 MMOL/L 42 (H) Anion Gap Latest Ref Range: 3 - 12 5 Blood Urea Nitrogen Latest Ref Range: 7 - 25 MG/DL 23 Creatinine Latest Ref Range: 0.4 - 1.24 MG/DL 0.80 eGFR Non Latest Ref Range: >60 mL/min >60 eGFR Latest Ref Range: >60 mL/min >60 Glucose Latest Ref Range: 70 - 100 MG/DL 103 (H) Albumin Latest Ref Range: 3.5 - 5.0 G/DL 3.1 (L) Calcium Latest Ref Range: 8.5 - 10.6 MG/DL 8.7 Magnesium Latest Ref Range: 1.6 - 2.6 mg/dL 1.8 Total Bilirubin Latest Ref Range: 0.3 - 1.2 MG/DL 0.6 Total Protein Latest Ref Range: 6.0 - 8.0 G/DL 5.6 (L) Phosphorus Latest Ref Range: 2.0 - 4.5 MG/DL 2.7 Radiology and other diagnostic tests: None today Rosio Dodd MD in this encounter Miscellaneous Notes * Case Mgmt DC Plan - Leighann Roblero RN - 06/27/2018 4:33 PM CDT Case Management Progress Note NAME:Dorie York :1934 AGE: 83 y.o. ADMISSION DATE: 06/22/2018 DAYS ADMITTED: LOS: 5 days Todays Date: 06/28/2018 Plan-Pt DC previously. Interventions ? Support ? Info or Referral ? Discharge Planning NCM husbandry person paged at [phone]. Spouse concerns re: O2 delivery. NCM called spouse at 0300 and confirmed that she had called [employer] once home. Spouse ,however, did not call [facility] at 2000 when [employer] stated to the pt they did not have orders present. Spouse noted that she was delivered two portable tanks. One was gone and the other was getting low per spouse. NCM called [employer] and spoke with their husbandry person- Real Gabriel confirmed that [employer] has all required documentation and the pt is next on the delivery route. The estimated time would be 0442am. NCM returned call to spouse and noted that the EX OX stated pt is requiring 0LPM at rest, and 6L NC with exertion. Spouse confirmed he was on 3L at the hospital. Discussed with the spouse that she should follow what the team told her at DC re: oxygen delivery amount. However, per the chart he requires 6L with exercise. If possible have pt rest while waiting for concentrator to be delievered at home to conserve O2. NCM noted that delivery was estimated about 0445am. Gave spouse NCM return number to call if tank had not been delivered by 5am. ? Medication Needs ? Financial ? Legal ? Other Disposition ? Expected Discharge Date Expected Discharge Date: 06/26/18 ? Transportation Does the patient need discharge transport arranged?: No Transportation Name, Phone and Availability #1: Cecily ? Discharge Disposition Discharged home with family support. Leighann Roblero RN, BSN Integrated Nurse Main Line Station Engineer Pager * Care Plan - Josefa Cleaning RN - 06/27/2018 3:50 PM CDT Problem: Aspiration, Risk of Goal: Tolerates oral intake Outcome: Goal Achieved Date Met: 06/27/18 Patient tolerates oral intake this shift Problem: Discharge Planning Goal: Participation in plan of care Outcome: Goal Achieved Date Met: 06/27/18 Patient and family participate in plan of care Goal: Prepared for discharge Outcome: Goal Achieved Date Met: 06/27/18 Patient to be discharged this shift Problem: Falls, High Risk of Goal: Absence of falls-Adult Patient Outcome: Goal Achieved Date Met: 06/27/18 High fall risk bundle in place; no falls this shift * Patient Education - Josefa Cleaning RN - 06/27/2018 11:21 AM CDT Medication Education Dorie York accepted counseling and was engaged. he verbalized understanding. The following medications were discussed: Coreg lovenox Lasix levaquin Lisinopril aldactone Where indicated, the patient was provided with additional medication and/or disease-state information. All patient questions were answered and patient acknowledged understanding of the medications, side effects and other pertinent medication information. Follow up should occur as needed. Continue to address: certain medications Josefa Cleaning RN * Care Plan - Josefa Cleaning RN - 06/27/2018 11:21 AM CDT Problem: Aspiration, Risk of Goal: Tolerates oral intake Outcome: Goal Ongoing [place] thickened liquids; patient tolerates oral intake this shift Goal: Absence of aspiration Outcome: Goal Ongoing Education provided; aspiration precautions in place Problem: Discharge Planning Goal: Participation in plan of care Outcome: Goal Ongoing Patient actively participates in plan of care Goal: Knowledge regarding plan of care Outcome: Goal Ongoing Patient verbally states understanding in plan of care Goal: Prepared for discharge Outcome: Goal Ongoing Discharge ongoing at this time Problem: Falls, High Risk of Goal: Absence of falls-Adult Patient Outcome: Goal Ongoing High fall risk bundle in place; education provided. No falls this shift Problem: Respiratory Impairment (Non-Ventilated Patient) Goal: Effective gas exchange Outcome: Goal Ongoing No s/sx or c/o respiratory distress. Oxygen administered per NC * Care Plan - Migdalia Leong RN - 06/27/2018 1:44 AM CDT Problem: Aspiration, Risk of Goal: Tolerates oral intake Outcome: Goal Ongoing Patient tolerating nectar thick liquids. No s/s of aspiration. Problem: Mobility/Activity Intolerance Goal: Maximize functional ADL's and mobility outcomes Outcome: Goal Ongoing Pt working with PT, OT. Problem: Discharge Planning Goal: Participation in plan of care Outcome: Goal Ongoing Pt and family involved in plan of care. Goal: Knowledge regarding plan of care Outcome: Goal Ongoing Plan of care discussed with patient and family, questions answered. Problem: Falls, High Risk of Goal: Absence of falls-Adult Patient Outcome: Goal Ongoing High fall risk bundle in place. No falls this shift. Problem: Respiratory Impairment (Non-Ventilated Patient) Goal: Effective gas exchange Outcome: Goal Ongoing Patient requiring 2-3 L to maintain above 92%. Increased O2 demands with activity * Patient Education - Migdalia Leong RN - 06/26/2018 11:19 PM CDT Medication Education ThomasPrattacceptedcounseling and wasreceptive.heneeds reinforcement. The following medications were discussed: Latanoprost Lovenox Coreg Where indicated, the patientwas provided with additional medication and/or disease-state information, including ABG, Incentive spirometry. All patient questions were answered and patient acknowledged understanding of the medications, side effects and other pertinent medication information. Follow upshould occur daily. Continue to address: indications Migdalia Leong RN * Care Plan - Josefa Cleaning RN - 06/26/2018 2:19 PM CDT Problem: Aspiration, Risk of Goal: Tolerates oral intake Outcome: Goal Achieved Date Met: 06/26/18 No c/o or s/sx of nausea or vomiting Goal: Absence of aspiration Outcome: Goal Achieved Date Met: 06/26/18 Thickened liquids, as ordered. Education provided Problem: Mobility/Activity Intolerance Goal: Maximize functional ADL's and mobility outcomes Outcome: Goal Achieved Date Met: 06/26/18 PT with patient this shift Problem: Discharge Planning Goal: Participation in plan of care Outcome: Goal Achieved Date Met: 06/26/18 Patient actively participates in plan of care Goal: Knowledge regarding plan of care Outcome: Goal Achieved Date Met: 06/26/18 Patient verbally states understanding in plan of care Goal: Prepared for discharge Outcome: Goal Achieved Date Met: 06/26/18 Patient to be discharged this shift Problem: Falls, High Risk of Goal: Absence of falls-Adult Patient Outcome: Goal Achieved Date Met: 06/26/18 High fall risk bundle in place. No falls this shift. Education provided Problem: Respiratory Impairment (Non-Ventilated Patient) Goal: Effective gas exchange Outcome: Goal Achieved Date Met: 06/26/18 No s/sx or c/o respiratory distress * Patient Education - Josefa Cleaning RN - 06/26/2018 2:15 PM CDT Medication Education Dorie York accepted counseling and was interactive. he demonstrated understanding. The following medications were discussed: Coreg lovenox Lasix levaquin Lisinopril Potassium spironolactone Where indicated, the patient was provided with additional medication and/or disease-state information. All patient questions were answered and patient acknowledged understanding of the medications, side effects and other pertinent medication information. Follow up should occur as needed. Continue to address: certain medications Josefa Cleaning RN * Case Mgmt DC Plan - Constanza Mora RN - 06/26/2018 12:49 PM CDT Formatting of this note may be different from the original. Case Management Progress Note NAME:Dorie York :1934 AGE: 83 y.o. ADMISSION DATE: 06/22/2018 DAYS ADMITTED: LOS: 4 days Todays Date: 06/26/2018 Plan: Discharge home with new home health through [facility] (Phone: ; fax: [phone]); and new home oxygen through [facility] ( / ). Pt's to drive pt home on dc. Interventions ? Support ? Info or Referral ? Discharge Planning Plan for pt to dc home today. Home O2 orders signed by Dr Rodgers and faxed to Antoni at [facility]. Called [facility] to notify of dc, left VM. Familler signed orders and AVS at this time. Pt has a roller walker of his own, and his is driving him home on dc. Pt had O2 tank delivered by Antoni from [facility]. Pt's has phone number to call on dc to arrange delivery of home O2. No other NCM needs. ? Medication Needs ? Financial ? Legal ? Other Disposition ? Expected Discharge Date Expected Discharge Date: 06/26/18 ? Transportation Does the patient need discharge transport arranged?: No Transportation Name, Phone and Availability #1: Cecily ? Next Level of Care (Acute Psych discharges only) ? Discharge Disposition Durable Medical Equipment No service has been selected for the patient. Destination No service has been selected for the patient. Home Care No service has been selected for the patient. Dialysis/Infusion No service has been selected for the patient. SATURNINO Polanco RN Nurse Main Line Station Engineer Vo[employer]te Text Phone: [phone] Pager: [phone] * Response Teams - Julia Smith RN - 06/26/2018 9:28 AM CDT DIE MACHINE OPERATOR Follow-up: Patient's primary RN, Josefa, at the bedside at the time of follow-up. Patient found to be sitting up in recliner discussing plan of care with physician and patient's friend/family member. No further concerns at this point from patient's primary RN. Patient to remain on unit 62 at this time. * Response Teams - Iris Thompson RN - 06/26/2018 7:20 AM CDT Rapid Response Team Progress Note Date: 06/26/2018 Time 0720 Patient: Dorie York Attending: Benja Rodgers* Service: [facility] G- [id number] Admission Date: 06/22/2018 LOS: 4 days A Code/Rapid Response Timeline Event Report has been created for this patient on 06/26/18 at 0649. Activated for increased lethargy, increasing CO2, and concern for pt. At arrival, pt was reclined in chair and talking with family. A &Ox4 at this time. VSS per pt trends. Due to tremors, unable to get accurate tele with [facility]. Palpable pulse rate in 80s. ECG obtained, SR in 80s. Covering physician at bedside. Physician, primary RN, and pt comfortable with maintaining same level of care at this time. Follow up VBG to be obtained around 0800. DIE MACHINE OPERATOR to follow up per standards. Iris Thompson RN * Critical Results - Migdalia Leong RN - 06/26/2018 6:46 AM CDT Critical result or procedure called (document test and value, and read back): PCO2 76 Time MD/UNDERCOAT SPRAYER Notified: [id number] MD/UNDERCOAT SPRAYER Name: Katie Michelle MD/UNDERCOAT SPRAYER Response/Orders Given: Call rapid response * Care Plan - Migdalia Leong RN - 06/26/2018 1:27 AM CDT Problem: Aspiration, Risk of Goal: Tolerates oral intake Outcome: Goal Ongoing Patient tolerating nectar thick liquids. No s/s of aspiration. Problem: Mobility/Activity Intolerance Goal: Maximize functional ADL's and mobility outcomes Outcome: Goal Ongoing Pt working with PT, OT. Problem: Discharge Planning Goal: Participation in plan of care Outcome: Goal Ongoing Pt and family involved in plan of care. Goal: Knowledge regarding plan of care Outcome: Goal Ongoing Plan of care discussed with patient and family, questions answered. Problem: Falls, High Risk of Goal: Absence of falls-Adult Patient Outcome: Goal Ongoing High fall risk bundle in place. No falls this shift. Problem: Respiratory Impairment (Non-Ventilated Patient) Goal: Effective gas exchange Outcome: Goal Ongoing Patient requiring 2-3 L to maintain above 92%. Increased O2 demands with activity. * Patient Education - Migdalia Leong RN - 06/26/2018 1:09 AM CDT Medication Education Dorie York accepted counseling and was receptive. he needs reinforcement. The following medications were discussed: Levaquin Latanoprost Lovenox Coreg Where indicated, the patient was provided with additional medication and/or disease-state information. All patient questions were answered and patient acknowledged understanding of the medications, side effects and other pertinent medication information. Follow up should occur daily. Continue to address: indications Migdalia Leong RN * Care Plan - Debbie Burt RN - 06/25/2018 5:15 PM CDT Problem: Aspiration, Risk of Goal: Tolerates oral intake Outcome: Goal Ongoing Patient tolerating nectar thick diet, no signs of aspiration Problem: Mobility/Activity Intolerance Goal: Maximize functional ADL's and mobility outcomes Outcome: Goal Ongoing Patient working with PT and OT Problem: Discharge Planning Goal: Participation in plan of care Outcome: Goal Ongoing Patient is involved, at bedside Problem: Falls, High Risk of Goal: Absence of falls-Adult Patient Outcome: Goal Ongoing Fall bundle in place, patient is compliant Problem: Respiratory Impairment (Non-Ventilated Patient) Goal: Effective gas exchange Outcome: Goal Ongoing Patient on 2L oxygen at rest, 6L with movement Problem: Self-Care Deficit Goal: Maximize ADL functioning Outcome: Goal Ongoing Patient working with baseline * Case Mgmt DC Plan - Constanza Mora RN - 06/25/2018 3:16 PM CDT Formatting of this note may be different from the original. Case Management Progress Note NAME:Dorie York :1934 AGE: 83 y.o. ADMISSION DATE: 06/22/2018 DAYS ADMITTED: LOS: 3 days Todays Date: 06/25/2018 Plan: Discharge home with new home health through [facility] (Phone: ; fax: [phone]); and new home oxygen through [employer] ( / ). Pt's to drive pt home on dc. Interventions ? Support ? Info or Referral ? Discharge Planning Discussed pt today in [facility] huddle. No dc today. Added lasix 40 mg PO today, as well as Coreg. Ex ox obtained - pt requiring RA at rest, and 6 liters with exertion. Pt was not previously on home oxygen. Met with pt and at bedside to discuss dc planning. Pt and both agree that home health will be beneficial to patient, for RN, PT, OT, and speech therapy. Pt would like to go through [facility]'s home health. Called [facility] ( ; fax: [phone]), who agreed to take patient. Referral faxed at this time. Discussed home O2 need. They have no preference on DME company used. Referral faxed to [facility]. Per Cordelia Corrales liaison, he will be serviced by [facility]. Antoni to drop off portable O2 to patient's bedside today, and provide pt and his a phone number to call on the way home, so that an RT can bring equipment to the pt's home. Will fax AVS and signed orders to [facility] on dc. ? Medication Needs ? Financial ? Legal ? Other Disposition ? Expected Discharge Date Expected Discharge Date: 06/26/18 ? Transportation Does the patient need discharge transport arranged?: No Transportation Name, Phone and Availability #1: Cecily ? Next Level of Care (Acute Psych discharges only) ? Discharge Disposition Durable Medical Equipment No service has been selected for the patient. Destination No service has been selected for the patient. Home Care No service has been selected for the patient. Dialysis/Infusion No service has been selected for the patient. SATURNINO Polanco RN Nurse Main Line Station Engineer Savanah Cui Phone: [phone] Pager: [phone] * Care Plan - Migdalia Leong RN - 06/25/2018 3:11 AM CDT Problem: Aspiration, Risk of Goal: Tolerates oral intake Outcome: Goal Ongoing [place] thick liquids. No s/s of aspiration this shift. Problem: Mobility/Activity Intolerance Goal: Maximize functional ADL's and mobility outcomes Outcome: Goal Ongoing Patient to work with PT, OT. Problem: Discharge Planning Goal: Participation in plan of care Outcome: Goal Ongoing Pt and family involved in plan of care. Goal: Knowledge regarding plan of care Outcome: Goal Ongoing Plan of care discussed with patient and family, questions answered. Problem: Falls, High Risk of Goal: Absence of falls-Adult Patient Outcome: Goal Ongoing High fall risk bundle in place. No falls this shift. Problem: Respiratory Impairment (Non-Ventilated Patient) Goal: Effective gas exchange Outcome: Goal Ongoing SpO2 above 92% on 2 L. Incentive spirometry performed by patient. * Patient Education - Migdalia Leong RN - 06/25/2018 2:14 AM CDT Medication Education Dorie York accepted counseling and was receptive. he needs reinforcement. The following medications were discussed: Levaquin Latanoprost Lovenox Where indicated, the patient was provided with additional medication and/or disease-state information. All patient questions were answered and patient acknowledged understanding of the medications, side effects and other pertinent medication information. Follow up should occur daily. Continue to address: indications Migdalia Leong RN * Care Coordination-Inpatient - Frantz Harris DO - 06/24/2018 7:00 PM CDT Transferring to [facility], assigned to [facility] ICU to take calls overnight and page [phone] at 8am Thursday. * Care Plan - Micaela Perez RN - 06/24/2018 3:14 PM CDT Problem: Infection, Risk of, Urinary Catheter-Associated Urinary Tract Infection Goal: Absence of urinary catheter-associated infection Outcome: Goal Achieved Date Met: 06/24/18 Pt voided within 6 hours of catheter removal. Problem: Aspiration, Risk of Goal: Tolerates oral intake Outcome: Goal Ongoing Patient seeing METAL NEUTRALIZER today Problem: Mobility/Activity Intolerance Goal: Maximize functional ADL's and mobility outcomes Outcome: Goal Ongoing Patient seeing PT & OT Problem: Discharge Planning Goal: Participation in plan of care Outcome: Goal Ongoing Pt involved in pt care. Goal: Prepared for discharge Outcome: Goal Ongoing Patient will d/c when medically indicated * Transfer - Peter BetzyJESUS clayton - 06/24/2018 9:39 AM CDT In-Hospital Transfer Note Admission Diagnosis: Acute Respiratory Failure, Volume Overload Admission Date: 06/22/2018 Active Hospital Problem List: Principal Problem: Acute respiratory failure with hypoxia and hypercapnia (HCC) Active Problems: Community acquired pneumonia of right lower lobe of lung (HCC) Acute pulmonary edema (HCC) Fluid overload Seizure (HCC) Acute encephalopathy Hospital Course: Dorie Rendon a 83 y/o male with PMH significant for HTN, prostate CA, L knee arthroplasty, and brain bleed/seizure (not currently on seizures meds). He developed dyspnea and lower extremity swelling since Thursday; at his PCP's office 06/21 he was found to have O2 sat 50%. He was transferred to ER at [facility], were he was found to have acute hypoxic and hypercapnic respiratory failure 2/2 pulmonary edema and possible CAP. There was also concern of possible seizure around that time. Eventually he was intubated and started on MV, then transferred to [facility]. Improvement seen with diuresis; will continue w/ PO spironolactone, which is a new medicine for him. Narrowed abx to levaquin only. Successfully liberated from ventilator on 06/23. Stable for transfer to floor. 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 Harper 0800 06/25. [facility] to take over his care this morning. * Critical Results - Kerrie Piedra RN - 06/23/2018 1:45 AM CDT Critical result or procedure called (document test and value, and read back): Potassium 2.5 Time MD/UNDERCOAT SPRAYER Notified: 0140 MD/UNDERCOAT SPRAYER Name: Dr. Foster MD/UNDERCOAT SPRAYER Response/Orders Given: Will place orders * Case Mgmt DC Plan - Rashid Macariojustice - 06/22/2018 4:31 PM CDT Case Management Admission Assessment NAME:Dorie York :1934 AGE: 83 y.o. ADMISSION DATE: 06/22/2018 DAYS ADMITTED: LOS: 0 days Todays Date: 06/22/2018 Source of Information: Cecily Plan Plan: CM Assessment, Assist PRN with /NCM Services Discharge planning ongoing Continue ICU Care Intubated plans to stay in hospital with patient until she feels comfortable staying with her sister. SW provided contact information and encouraged patient/family to call with questions or concerns. Patient Address/Phone [address] [place] [address] [place], [place] [phone] (home) Emergency Contact Extended Emergency Contact Information Primary Emergency Contact: Cecily [facility] Relation: None Healthcare Directive None Transportation Does the patient need discharge transport arranged?: No Transportation Name, Phone and Availability #1: Cecily Expected Discharge Date Expected Discharge Date: 06/28/18 Living Situation Prior to Admission ? Living Arrangements Type of Residence: Home, independent Living Arrangements: Spouse/significant other Bathroom Shower / Tub: Walk-in Shower How many levels in the residence?: 1 Can patient live on one level if needed?: Yes Does residence have entry and/or side stairs?: Yes (4 with double sided railings ) Assistance needed prior to admit or anticipated on discharge: No Patient and just moved to [facility] one month ago. ? Level of Function Prior level of function: Independent (Used a RW prior to admission ) ? Cognitive Abilities Cognitive Abilities: Alert and Oriented Financial Resources ? Coverage Primary Insurance: Medicare Secondary Insurance: Medicare Supplement (BCBS) Additional Coverage: RX (Denies problems obtaining medications ) ? Source of Income Source Of Income: SSI ? Financial Assistance Needed? no Psychosocial Needs ? Mental Health Mental Health History: No ? Substance Use History Substance Use History Screen: No ? Other Current/Previous Services ? PCP Suze Moreno ? Pharmacy No Pharmacies Listed ? Durable Medical Equipment Durable Medical Equipment at home: Roller Walker, Single Point Cane, Shower Chair ? Home Health Receiving home health: In the past Agency name: recieved in [place]; would prefer to use [facility] if needed in the future. Would patient use this agency again?: Yes ? Hemodialysis or Peritoneal Dialysis Undergoing hemodialysis or peritoneal dialysis: No ? Tube/Enteral Feeds Receive tube/enteral feeds: No ? Infusion Receive infusions: No ? Private Duty Private duty help used: No ? Home and Community Based Services Home and community based services: No ? Dean Redd: N/A ? Hospice Hospice: No ? Outpatient Therapy PT: No OT: No METAL NEUTRALIZER: No ? Long-Term Facility/Assisted SNF: No NH: No ? Inpatient Rehab IPR: In the past Name of Facility: [facility] Would patient return for future services?: Yes After fall two years ago ? Long-Term Acute Care Hospital LTACH: No ? Acute Hospital Stay Acute Hospital Stay: In the past Jake Rashid LMSW [phone] (phone) [phone] (pager) * Advanced Care Planning/Resuscitation Status - Lia Foster MD - 2017 1:25 AM CDT Advance Care Planning/Resuscitation Status Conversation Individuals present for advance care planning conversation: attending physician and patient Pertinent details of conversation (including direct quotes from patient or surrogate): Full Code Outcome of conversation: Full Code Documents completed as a result of this conversation: None Other documents present, which outline patient/surrogate wishes: None in this encounter Plan of Treatment Not on fileas of this encounter Procedures Procedure Name Priority Date/Time Associated Diagnosis Comments ECG-SCAN 07/24/2018 Results for this 5:50 PM STEWARD/STEWARDESS LOUNGE procedure are in the results section. ECG-SCAN 07/24/2018 Results for this 5:50 PM STEWARD/STEWARDESS LOUNGE procedure are in the results section. ECG-SCAN 07/24/2018 Results for this 5:50 PM STEWARD/STEWARDESS LOUNGE procedure are in the results section. TELEMETRY [...] THERAPY TEAM Routine 06/26/2018 1:39 PM CDT CBC AND DIFF Routine 06/26/2018 Results for this 6:36 AM CDT procedure are in the results section. PHOSPHORUS Routine 06/26/2018 Results for this 6:36 [...] CDT procedure are in the results section. in this encounter Results * ECG-SCAN (07/24/2018 5:50 PM) Narrative Performed At Ordered by an unspecified provider. * ECG-SCAN (07/24/2018 5:50 PM) Narrative Performed At Ordered by an unspecified provider. * ECG-SCAN (07/24/2018 5:50 PM) Narrative Performed At Ordered by an unspecified provider. * TELEMETRY STRIPS-SCAN (06/28/2018 11:41 AM) Narrative Performed At Ordered by an unspecified provider. * BLOOD GASES, PERIPHERAL VENOUS (06/27/2018 5:35 AM) pH-Venous 7.34 7.30 - 7.40 MAIN LAB PCO2-Venous 82 (H) 36 - 50 MMHG KU MAIN LAB PO2-Venous 48 33 - 48 MMHG [facility] MAIN LAB Base Excess-Venous 13.5 MMOL/L [facility] O2 Sat-Venous 81.7 (H) 55 - 71 % KU MAIN LAB Hymkynusuoh-QLJ-Bfe 36.9 MMOL/L [facility] Specimen Blood, venous - Blood Performing Organization Address City/State/Zipcode Phone Number [facility] [address] [place] [address] * CBC AND DIFF (06/27/2018 4:57 AM) White Blood Cells 3.7 (L) 4.5 - 11.0 K/UL [facility] RBC 3.69 (L) 4.4 - 5.5 M/UL [facility] Hemoglobin 12.6 (L) 13.5 - 16.5 GM/DL [facility] Hematocrit 39.0 (L) 40 - 50 % [facility] MCV 105.7 (H) 80 - 100 FL [facility] MCH 34.1 (H) 26 - 34 PG [facility] MCHC 32.3 32.0 - 36.0 G/DL [facility] RDW 14.1 11 - 15 % MAIN LAB Platelet Count 141 (L) 150 [...] MAIN LAB Specimen Blood Performing Organization Address City/State/Zipcode Phone Number MAIN LAB [address] [place] [address] * COMPREHENSIVE METABOLIC PANEL (06/27/2018 4:57 AM) Sodium 140 137 - 147 MMOL/L KU [...] Alk Phosphatase 46 25 - 110 U/L [facility] MAIN LAB AST (SGOT) 15 7 - 40 U/L [facility] MAIN [facility] CO2 42 (H) 21 - 30 MMOL/L [facility] MAIN [facility] ALT (SGPT) 9 7 - 56 U/L [facility] MA[facility] Anion Gap 5 3 - 12 [facility] MAIN LAB eGFR Non >60 >60 mL/min [facility] Comment: The eGFR is not validated for use in drug dosing adjustments.Continue to use estimated creatinine clearance per dosing reference text.Please contact the Clinical Pharmacist for questions. eGFR >60 >60 mL/min [facility] MAIN LAB Comment: The eGFR is not validated for use in drug dosing adjustments.Continue to use estimated creatinine clearance per dosing reference text.Please contact the Clinical Pharmacist for questions. Specimen Blood Performing Organization Address City/[facility]/Zipcode Phone Number MAIN LAB [address] [place] [address] * MAGNESIUM (06/27/2018 4:57 AM) Magnesium 1.8 1.6 - 2.6 mg/dL MAIN LAB Specimen Blood Performing Organization Address [facility] Phone Number [facility] LAB [address] [place] [address] * PHOSPHORUS (06/27/2018 4:57 AM) Phosphorus 2.7Comment: NOTE NEW REFERENCE 2.0 - 4.5 MG/DL MAIN LAB RANGES Specimen Blood Performing Organization Address [facility] Phone Number MAIN LAB [address] [place] [address] * BLOOD GASES, PERIPHERAL VENOUS (06/26/2018 2:29 PM) pH-Venous 7.33 7.30 - 7.40 MAIN LAB PCO2-Venous 84 (H) 36 - 50 MMHG MAIN LAB PO2-Venous 26 (L) 33 - 48 MMHG MAIN LAB Base Excess-Venous 13.3 MMOL/L MAIN LAB O2 Sat-Venous 44.7 (L) 55 - 71 % MAIN LAB Wczyngpypmo-PFF-Cga 35.8 MMOL/L MAIN LAB Specimen Blood, venous - Blood Performing Organization Address [facility] Phone Number MA[facility] LAB [address] [place] [address] * PHOSPHORUS (06/26/2018 6:36 AM) Phosphorus 3.1Comment: NOTE NEW REFERENCE 2.0 - 4.5 MG/DL MAIN LAB RANGES Specimen Blood Performing Organization Address [facility]/Zipcode Phone Number MAIN LAB [address] [place] [address] * MAGNESIUM (06/26/2018 6:36 AM) Magnesium 1.7 1.6 - 2.6 mg/dL MAIN LAB Specimen Blood Performing Organization Address [facility]/[email or web address] Phone Number MAIN LAB [address] [place] [address] * COMPREHENSIVE METABOLIC PANEL (06/26/2018 6:36 AM) Sodium 136 (L) 137 - 147 MMOL/L KU MAIN LAB Potassium 3.7 3.5 - 5.1 MMOL/L [facility] MAIN LAB Chloride 95 (L) 98 - 110 MMOL/L [facility]U MAIN LAB Glucose 103 (H) 70 - 100 MG/DL [facility]U MAIN LAB Blood Urea Nitrogen 25 7 - 25 MG/DL K[facility] MAIN LAB Creatinine 0.73 0.4 - 1.24 MG/DL K[facility] MAIN LAB Calcium 8.5 8.5 - 10.6 MG/DL K[facility] MAIN LAB Total Protein 5.7 (L) 6.0 - 8.0 G/DL [facility] MAIN LAB Total Bilirubin 0.6 0.3 - 1.2 MG/DL [facility] MAIN LAB Albumin 3.0 (L) 3.5 - 5.0 G/DL [facility] MAIN LAB Alk Phosphatase 49 25 - 110 U/L [facility] MAIN [facility] AST (SGOT) 14 7 - 40 U/L [facility] MAIN LAB CO2 35 (H) 21 - 30 MMOL/L [facility] MAIN [facility] ALT (SGPT) 5 (L) 7 - 56 U/L [facility] MAIN LAB Anion Gap 6 3 - 12 KU MAIN LAB eGFR Non >60 >60 mL/min [facility] MAIN [facility] Comment: The eGFR is not validated for use in drug dosing adjustments.Continue to use estimated creatinine clearance per dosing reference text.Please contact the Clinical Pharmacist for questions. eGFR >60 >60 mL/min [facility] MAIN LAB Comment: The eGFR is not validated for use in drug dosing adjustments.Continue to use estimated creatinine clearance per dosing reference text.Please contact the Clinical Pharmacist for questions. Specimen Blood Performing Organization Address City/State/Zipcode Phone Number MAIN LAB [address] [place] [address] * CBC AND DIFF (06/26/2018 6:36 AM) White Blood Cells 3.9 (L) 4.5 - 11.0 K/UL [facility] MAIN [facility] RBC 3.74 (L) 4.4 - 5.5 M/UL [facility] MAIN LAB Hemoglobin 13.0 (L) 13.5 - 16.5 GM/DL [facility] MAIN LAB Hematocrit 38.9 (L) 40 - 50 % [facility] MAIN LAB MCV 104.0 (H) 80 - 100 FL [facility] MAIN LAB MCH 34.7 (H) 26 - 34 PG [facility] MAIN LAB MCHC 33.4 32.0 - 36.0 G/DL MAIN LAB RDW 13.7 11 - 15 % MAIN LAB Platelet Count 129 (L) 150 - 400 K/UL MAIN LAB MPV 7.6 7 - 11 FL MAIN LAB Segmented Neutrophils 69 41 - 77 % MAIN LAB Lymphocytes 20 (L) 24 - 44 % MAIN LAB Monocytes 8 4 - 12 % MAIN LAB Eosinophil 2 0 - 5 % MAIN LAB Basophil 1 0 - 2 % MAIN LAB ANISO PRESENT MAIN LAB Platelet Estimate SLT DEC MAIN LAB Absolute Neutrophil Count 2.69 1.8 - 7.0 K/UL MAIN LAB Manual Specimen Blood Performing Organization Address City/[facility] Phone Number MAIN LAB [address] [place] [address] * BLOOD GASES, ARTERIAL (06/26/2018 6:08 AM) pH-Arterial 7.35 7.35 - 7.45 MAIN LAB pCO2-Arterial 76 (HH) 35 - 45 MMHG MAIN LAB Comment: CRITICAL VALUE CALLED TO AND READ BACK BY/TIME/TECH MIGDALIA S/0638/NT pO2-Arterial 60 (L) 80 - 100 MMHG MAIN LAB Base Excess-Arterial 11.9 MMOL/L MAIN LAB O2 Sat-Arterial 89.7 (L) 95 - 99 % MAIN LAB Jwcmwagozvs-YXC-Eup 35.5 (H) 21 - 28 MMOL/L MAIN LAB Specimen Blood, arterial - Blood Performing Organization Address [facility] Cent[facility] Phone Number MAIN LAB [address] [place] [address] * PHOSPHORUS (06/25/2018 7:07 AM) Phosphorus 3.1Comment: NOTE NEW REFERENCE 2.0 - 4.5 MG/DL MAIN LAB RANGES Specimen Blood Performing Organization Address City/[facility]/Zipcode Phone Number MAIN LAB [address] [place] [address] * MAGNESIUM (06/25/2018 7:07 AM) Magnesium 2.0 1.6 - 2.6 mg/dL MAIN LAB Specimen Blood Performing Organization Address City/[facility] Cent[facility] Phone Number MAIN LAB [address] [place] [address] * COMPREHENSIVE METABOLIC PANEL (06/25/2018 7:07 AM) Sodium 138 137 - 147 MMOL/L [facility]U MAIN LAB Potassium 3.7 3.5 - 5.1 MMOL/L K[facility] MAIN LAB Chloride 95 (L) 98 - 110 MMOL/L K[facility] MAIN LAB Glucose 103 (H) 70 - 100 MG/DL [facility] MAIN LAB Blood Urea Nitrogen 28 (H) 7 - 25 MG/DL [facility] MAIN LAB Creatinine 0.87 0.4 - 1.24 MG/DL [facility] MAIN LAB Calcium 8.7 8.5 - 10.6 MG/DL [facility] MAIN LAB Total Protein 5.9 (L) 6.0 - 8.0 G/DL [facility] MAIN LAB Total Bilirubin 0.6 0.3 - 1.2 MG/DL [facility] MAIN LAB Albumin 3.1 (L) 3.5 - 5.0 G/DL [facility] MAIN LAB Alk Phosphatase 54 25 - 110 U/L [facility] MAIN LAB AST (SGOT) 12 7 - 40 U/L [facility] MAIN LAB CO2 40 (H) 21 - 30 MMOL/L [facility] MAIN [facility] ALT (SGPT) 6 (L) 7 - 56 U/L [facility] MAIN LAB Anion Gap 3 3 - 12 KU MAIN LAB eGFR Non >60 >60 mL/min [facility] MAIN [facility] Comment: The eGFR is not validated for use in drug dosing adjustments.Continue to use estimated creatinine clearance per dosing reference text.Please contact the Clinical Pharmacist for questions. eGFR >60 >60 mL/min [facility] MAIN LAB Comment: The eGFR is not validated for use in drug dosing adjustments.Continue to use estimated creatinine clearance per dosing reference text.Please contact the Clinical Pharmacist for questions. Specimen Blood Performing Organization Address City/State/Zipcode Phone Number MAIN LAB [address] [place] [address] * CBC AND DIFF (06/25/2018 7:07 AM) White Blood Cells 5.0 4.5 - 11.0 K/UL [facility] MAIN [facility] RBC 3.72 (L) 4.4 - 5.5 M/UL [facility] MAIN LAB Hemoglobin 12.8 (L) 13.5 - 16.5 GM/DL [facility] MAIN LAB Hematocrit 39.5 (L) 40 - 50 % [facility] MAIN LAB MCV 106.3 (H) 80 - 100 FL [facility] MAIN LAB MCH 34.3 (H) 26 - 34 PG [facility] MAIN LAB MCHC 32.3 32.0 - 36.0 G/DL [facility] MAIN LAB RDW 14.4 11 - 15 % [facility] MAIN LAB Platelet Count 149 (L) 150 - 400 K/UL [facility] MAIN [facility] MPV 7.4 7 - 11 FL [facility] MAIN LAB Neutrophils 79 (H) 41 - 77 % [facility] MAIN LAB Lymphocytes 11 (L) 24 - 44 % [facility] MAIN LAB Monocytes 9 4 - 12 % [facility] MAIN LAB Eosinophils 0 0 - 5 % [facility] MAIN LAB Basophils 1 0 - 2 % [facility] MAIN LAB Absolute Neutrophil Count 3.90 1.8 - 7.0 K/UL [facility] MAIN [facility] Absolute Lymph Count 0.50 (L) 1.0 - 4.8 K/UL [facility] MAIN [facility] Absolute Monocyte Count 0.40 0 - 0.80 K/UL [facility] MAIN [facility] Absolute Eosinophil Count 0.00 0 - 0.45 K/UL [facility] MAIN [facility] Absolute Basophil Count 0.00 0 - 0.20 K/UL [facility] MAIN [facility] Specimen Blood Performing Organization Address City/[facility] Phone Number [facility] MAIN [facility] [address] [place] [address] * PHOSPHORUS (06/24/2018 4:48 AM) Phosphorus 3.8Comment: NOTE NEW REFERENCE 2.0 - 4.5 MG/DL [facility] MAIN LAB RANGES Specimen Blood Performing Organization Address City/[facility]/Zipcode Phone Number MAIN LAB [address] [place] [address] * MAGNESIUM (06/24/2018 4:48 AM) Magnesium 1.9 1.6 - 2.6 mg/dL [facility] MAIN [facility] Specimen Blood Performing Organization Address [facility] Cent[facility] Phone Number MAIN LAB [address] [place] [address] * COMPREHENSIVE METABOLIC PANEL (06/24/2018 4:48 AM) Sodium 140 137 - 147 MMOL/L [facility] MAIN LAB Potassium 3.4 (L) 3.5 - 5.1 MMOL/L [facility] MAIN LAB Chloride 95 (L) 98 - 110 MMOL/L [facility] MAIN LAB Glucose 86 70 - 100 MG/DL [facility] Blood Urea Nitrogen 22 7 - 25 MG/DL [facility] Creatinine 0.85 0.4 - 1.24 MG/DL [facility] Calcium 8.6 8.5 - 10.6 MG/DL [facility] Total Protein 5.9 (L) 6.0 - 8.0 G/DL [facility] Total Bilirubin 0.7 0.3 - 1.2 MG/DL [facility] Albumin 3.1 (L) 3.5 - 5.0 G/DL [facility] Alk Phosphatase 55 25 - 110 U/L [facility] AST (SGOT) 15 7 - 40 U/L [facility] CO2 38 (H) 21 - 30 MMOL/L [facility] ALT (SGPT) 8 7 - 56 U/L [facility] Anion Gap 7 3 - 12 [facility] eGFR Non >60 >60 mL/min [facility] Comment: The eGFR is not validated for use in drug dosing adjustments.Continue to use estimated creatinine clearance per dosing reference text.Please contact the Clinical Pharmacist for questions. eGFR >60 >60 mL/min [facility] Comment: The eGFR is not validated for use in drug dosing adjustments.Continue to use estimated creatinine clearance per dosing reference text.Please contact the Clinical Pharmacist for questions. Specimen Blood Performing Organization Address City/State/Zipcode Phone Number MAIN LAB [address] [place] [address] * CBC AND DIFF (06/24/2018 3:43 AM) White Blood Cells 5.2 4.5 - 11.0 K/UL [facility] RBC 3.57 (L) 4.4 - 5.5 M/UL [facility] Hemoglobin 12.3 (L) 13.5 - 16.5 GM/DL [facility] Hematocrit 37.5 (L) 40 - 50 % [facility] MCV 105.0 (H) 80 - 100 FL [facility] MCH 34.4 (H) 26 - 34 PG [facility] MCHC 32.8 32.0 - 36.0 G/DL [facility] RDW 14.7 11 - 15 % [facility] Platelet Count 145 (L) 150 - 400 K/UL [facility] MPV 8.1 7 - 11 FL [facility] Neutrophils 84 (H) 41 - 77 % [facility] Lymphocytes 9 (L) 24 - 44 % [facility] Monocytes 6 4 - 12 % [facility] Eosinophils 1 0 - 5 % [facility] Basophils 0 0 - 2 % [facility] Absolute Neutrophil Count 4.40 1.8 - 7.0 K/UL [facility] Absolute Lymph Count 0.40 (L) 1.0 - 4.8 K/UL [facility] Absolute Monocyte Count 0.30 0 - 0.80 K/UL [facility] Absolute Eosinophil Count 0.00 0 - 0.45 K/UL [facility] Absolute Basophil Count 0.00 0 - 0.20 K/UL [facility] Specimen Blood Performing Organization Address City/State/Zipcode Phone Number [facility] [address] [place] [address] * SWALLOW MOTION SERIES (06/23/2018 2:28 PM) [...] on 06/23/2018 2:45 PM. Performing Organization Address [facility] Phone Number RAD RESULTS * POTASSIUM (06/23/2018 8:44 AM) Potassium 4.0 3.5 - 5.1 MMOL/L MAIN LAB Specimen Blood Performing Organization Address [facility] Phone Number MA[facility] LAB [address] [place] [address] * BLOOD GASES, ARTERIAL (06/23/2018 8:44 AM) pH-Arterial 7.50 (H) 7.35 - 7.45 MAIN LAB pCO2-Arterial 45 35 - 45 MMHG MAIN LAB pO2-Arterial 106 (H) 80 - 100 MMHG MAIN LAB Base Excess-Arterial 10.9 MMOL/L MAIN LAB O2 Sat-Arterial 98.7 95 - 99 % MAIN LAB Zavdgacyqsk-IJY-Qhx 34.7 (H) 21 - 28 MMOL/L MAIN LAB Specimen Blood, arterial - Blood Performing Organization Address [facility] Phone Number [facility] [address] [place] [address] * MAGNESIUM (06/23/2018 8:44 AM) Magnesium 2.5 1.6 - 2.6 mg/dL MAIN LAB Specimen Blood Performing Organization Address [facility] Phone Number [facility] [address] [place] [address] * PHOSPHORUS (06/23/2018 4:38 AM) Phosphorus 2.7Comment: NOTE NEW REFERENCE 2.0 - 4.5 MG/DL MAIN LAB RANGES Specimen Blood Performing Organization Address [facility] Phone Number MA[facility] LAB [address] [place] [address] * COMPREHENSIVE METABOLIC PANEL (06/23/2018 4:38 AM) Sodium 135 (L) 137 - 147 MMOL/L MAIN LAB Potassium 3.5 3.5 - 5.1 MMOL/L MAIN LAB Chloride 96 (L) 98 - 110 MMOL/L [facility] Glucose 122 (H) 70 - 100 MG/DL MAIN LAB Blood Urea Nitrogen 22 7 - 25 MG/DL [facility] Creatinine 0.99 0.4 - 1.24 MG/DL [facility] Calcium 8.0 (L) 8.5 - 10.6 MG/DL [facility] Total Protein 5.0 (L) 6.0 - 8.0 G/DL [facility] Total Bilirubin 0.6 0.3 - 1.2 MG/DL [facility] Albumin 2.7 (L) 3.5 - 5.0 G/DL [facility] Alk Phosphatase 48 25 - 110 U/L [facility] AST (SGOT) 14 7 - 40 U/L [facility] CO2 35 (H) 21 - 30 MMOL/L [facility] ALT (SGPT) 7 7 - 56 U/L [facility] Anion Gap 4 3 - 12 [facility] eGFR Non >60 >60 mL/min [facility] Comment: The eGFR is not validated for use in drug dosing adjustments.Continue to use estimated creatinine clearance per dosing reference text.Please contact the Clinical Pharmacist for questions. eGFR >60 >60 mL/min [facility] Comment: The eGFR is not validated for use in drug dosing adjustments.Continue to use estimated creatinine clearance per dosing reference text.Please contact the Clinical Pharmacist for questions. Specimen Blood Performing Organization Address City/State/Zipcode Phone Number [facility] [address] [place] [address] * CBC AND DIFF (06/23/2018 4:38 AM) White Blood Cells 5.9 4.5 - 11.0 K/UL [facility] RBC 3.53 (L) 4.4 - 5.5 M/UL [facility] Hemoglobin 12.1 (L) 13.5 - 16.5 GM/DL [facility] Hematocrit 36.7 (L) 40 - 50 % [facility] MCV 103.8 (H) 80 - 100 FL [facility] MCH 34.1 (H) 26 - 34 PG [facility] MCHC 32.9 32.0 - 36.0 G/DL [facility] RDW 14.0 11 - 15 % [facility] Platelet Count 133 (L) 150 - 400 K/UL [facility] MPV 7.5 7 - 11 FL [facility] Neutrophils 85 (H) 41 - 77 % [facility] Lymphocytes 8 (L) 24 - 44 % [facility] Monocytes 7 4 - 12 % [facility] Eosinophils 0 0 - 5 % [facility] Basophils 0 0 - 2 % MAIN LAB Absolute Neutrophil Count 5.00 1.8 - 7.0 K/UL MAIN LAB Absolute Lymph Count 0.50 (L) 1.0 - 4.8 K/UL MAIN LAB Absolute Monocyte Count 0.40 0 - 0.80 K/UL MAIN LAB Absolute Eosinophil Count 0.00 0 - 0.45 K/UL MAIN LAB Absolute Basophil Count 0.00 0 - 0.20 K/UL MAIN LAB Specimen Blood Performing Organization Address City/[facility] Phone Number MAIN LAB [address] [place] [address] * MAGNESIUM (06/23/2018 12:15 AM) Magnesium 1.2 (L) 1.6 - 2.6 mg/dL MAIN LAB Specimen Blood Performing Organization Address [facility] Phone Number MAIN LAB [address] [place] [address] * POTASSIUM (06/23/2018 12:15 AM) Potassium 2.5 (LL)Comment: Critical 3.5 - 5.1 MMOL/L MAIN LAB Value K: Called To: BETHANY Lange at: 01:33:18 by: JING Read back by: BETHANY Lange Specimen Blood Performing Organization Address [facility] Phone Number MAIN LAB [address] [place] [phone] * MAGNESIUM (06/22/2018 5:27 PM) Magnesium 1.8 1.6 - 2.6 mg/dL MAIN LAB Specimen Blood Performing Organization Address [facility] Phone Number MA[facility] LAB [address] [place] [address] * POTASSIUM (06/22/2018 5:27 PM) Potassium 3.6 3.5 - 5.1 MMOL/L MAIN LAB Specimen Blood Performing Organization Address [facility] Phone Number MAIN LAB [address] [place] [address] * 2-D + DOPPLER ECHOCARDIOGRAM (06/22/2018 10:17 [...] OTHER OUTSIDE LAB pressure Cardiology Ultrasound Siemens [id number] OTHER OUTSIDE LAB Machine Left Ventricle Mass [...] City/State/Zipcode Phone Number OTHER OUTSIDE LAB * PROTIME INR (PT) (06/22/2018 3:55 AM) INR 1.1 0.8 - 1.2 MAIN LAB Specimen Blood Performing Organization Address City/State/Zipcode Phone Number MAIN LAB [address] [place] [address] * PTT (APTT) (06/22/2018 3:55 AM) APTT 23.2Comment: NOTE NEW 20.0 - 36.0 SEC [facility] REFERENCE RANGES Specimen Blood Performing Organization Address [facility] Phone Number [facility] [address] [place] [address] * TROPONIN-I (06/22/2018 3:55 AM) Troponin-I 0.04 0.0 - 0.05 NG/ML [facility] Specimen Blood Performing Organization Address [facility] Phone Number [facility] [address] [place] [address] * GRAM STAIN (06/22/2018 2:02 AM) Battery Name GRAM STAIN [facility] Specimen Description TRACHEAL ASPIRATE [facility] Special Requests NONE [facility] Gram Stain LESS THAN 10/LPF [facility] NEUTROPHILS LESS THAN 10/LPF SQUAMOUS EPITHELIAL CELLS NO ORGANISMS SEEN Report Status FINAL [facility] 06/22/2018 Specimen Tracheal Aspirate Performing Organization Address [facility] Phone Number [facility] [address] [place] [address] * RVP VIRAL PANEL PCR (06/22/2018 2:02 [...] [facility] Parainfluenza 3 NOT DETECTED [facility] Parainfluenza 4 NOT DETECTED [facility] RSV NOT DETECTED [facility] Bordetella Pertussis NOT DETECTED [facility] Chlamydophila Pneumoniae NOT DETECTED [facility] Mycoplasma Pneumoniae NOT DETECTED [facility] Specimen Nasal Wash Performing Organization Address [facility] Phone Number [facility] [address] [place] [address] * CULTURE-RESP,LOWER W/SENSITIVITY (06/22/2018 2:02 AM) Battery Name LOWER RESP CULTURE MAIN LAB Specimen Description TRACHEAL ASPIRATE MAIN LAB Special Requests NONE MAIN LAB Direct Gram Stain LESS THAN 10/LPF MAIN LAB NEUTROPHILS LESS THAN 10/LPF SQUAMOUS EPITHELIAL CELLS NO ORGANISMS SEEN Culture Moderate growth MAIN LAB NORMAL OROPHARYNGEAL DEIDRE Report Status FINAL MAIN LAB 06/24/2018 Specimen Tracheal Aspirate Performing Organization Address [facility] Phone Number MAIN LAB [address] [place] [address] * CULTURE-BLOOD W/SENSITIVITY (06/22/2018 1:41 AM) Battery Name BLOOD CULTURE MAIN LAB Specimen Description BLOOD MAIN LAB LEFT RADIAL Special Requests NONE MAIN LAB Culture NO GROWTH 5 DAYS MAIN LAB Report Status FINAL MAIN LAB 06/28/2018 Specimen Blood Performing Organization Address [facility] Phone Number MAIN [facility] [address] [place] [address] * BLOOD GASES, ARTERIAL (06/22/2018 1:41 AM) pH-Arterial 7.45 7.35 - 7.45 MAIN LAB pCO2-Arterial 49 (H) 35 - 45 MMHG MAIN LAB pO2-Arterial 158 (H) 80 - 100 MMHG MAIN LAB Base Excess-Arterial 7.9 MMOL/L MAIN LAB O2 Sat-Arterial 99.4 (H) 95 - 99 % MAIN LAB Xqxbhjnihsb-LRN-Gfi 31.7 (H) 21 - 28 MMOL/L MAIN LAB Specimen Blood, arterial - Blood Performing Organization Address [facility] Phone Number MAIN [facility] [address] [place] [address] * CHEST SINGLE VIEW (06/22/2018 1:28 AM) [...] on 06/22/2018 7:58 AM. Performing Organization Address [facility] Phone Number [facility] RAD RESULTS * PROCALCITONIN (06/22/2018 1:25 AM) Procalcitonin 0.02 <0.10 NG/ML [facility] MAIN LAB Performing Organization Address [facility] Phone Number [facility] MAIN LAB [address] [place] [address] * TROPONIN-I (06/22/2018 1:25 AM) Troponin-I 0.04 0.0 - 0.05 NG/ML [facility] MAIN LAB Specimen Blood Performing Organization Address City/[facility]/Zipcode Phone Number MAIN LAB [address] [place] [address] * CULTURE-BLOOD W/SENSITIVITY (06/22/2018 1:25 AM) Battery Name BLOOD CULTURE [facility] Specimen Description BLOOD [facility] RIGHT WRIST Special Requests NONE [facility] Culture NO GROWTH 5 DAYS [facility] Report Status FINAL [facility] 06/28/2018 Specimen Blood Performing Organization Address [facility] Phone Number MAIN LAB [address] [place] [address] * TSH WITH FREE T4 REFLEX (06/22/2018 1:25 AM) TSH 3.100 0.35 - 5.00 MCU/ML MAIN LAB Specimen Blood Performing Organization Address [facility] Phone Number MAIN LAB [address] [place] [address] * BNP (B-TYPE NATRIURETIC PEPTI) (06/22/2018 1:25 AM) B Type Natriuretic 370.0 (H) 0 - 100 PG/ML MAIN LAB Peptide Specimen Blood Performing Organization Address [facility] Phone Number MAIN LAB [address] [place] [address] * PHOSPHORUS (06/22/2018 1:25 AM) Phosphorus 2.3Comment: NOTE NEW REFERENCE 2.0 - 4.5 MG/DL MAIN LAB RANGES Specimen Blood Performing Organization Address [facility] Phone Number MAIN LAB [address] [place] [address] * MAGNESIUM (06/22/2018 1:25 AM) Magnesium 1.7 1.6 - 2.6 mg/dL MAIN LAB Specimen Blood Performing Organization Address [facility]/Zipcode Phone Number MAIN LAB [address] [place] [address] * COMPREHENSIVE METABOLIC PANEL (06/22/2018 1:25 AM) Sodium 141 137 - 147 MMOL/L [facility] Potassium 4.1 3.5 - 5.1 MMOL/L [facility] Chloride 100 98 - 110 MMOL/L [facility] Glucose 111 (H) 70 - 100 MG/DL [facility] Blood Urea Nitrogen 30 (H) 7 - 25 MG/DL [facility] Creatinine 1.03 0.4 - 1.24 MG/DL [facility] Calcium 8.6 8.5 - 10.6 MG/DL [facility] Total Protein 5.9 (L) 6.0 - 8.0 G/DL [facility] Total Bilirubin 1.1 0.3 - 1.2 MG/DL [facility] Albumin 3.3 (L) 3.5 - 5.0 G/DL [facility] Alk Phosphatase 58 25 - 110 U/L [facility] AST (SGOT) 22 7 - 40 U/L [facility] CO2 31 (H) 21 - 30 MMOL/L [facility] ALT (SGPT) 9 7 - 56 U/L [facility] Anion Gap 10 3 - 12 [facility] eGFR Non >60 >60 mL/min [facility] Comment: The eGFR is not validated for use in drug dosing adjustments.Continue to use estimated creatinine clearance per dosing reference text.Please contact the Clinical Pharmacist for questions. eGFR >60 >60 mL/min [facility] Comment: The eGFR is not validated for use in drug dosing adjustments.Continue to use estimated creatinine clearance per dosing reference text.Please contact the Clinical Pharmacist for questions. Specimen Blood Performing Organization Address City/State/Zipcode Phone Number [facility] [address] [place] [address] * CBC AND DIFF (06/22/2018 1:25 AM) White Blood Cells 6.7 4.5 - 11.0 K/UL [facility] RBC 4.00 (L) 4.4 - 5.5 M/UL [facility] Hemoglobin 14.0 13.5 - 16.5 GM/DL [facility] Hematocrit 41.8 40 - 50 % [facility] MCV 104.4 (H) 80 - 100 FL [facility] MCH 35.0 (H) 26 - 34 PG [facility] MCHC 33.5 32.0 - 36.0 G/DL [facility] RDW 14.2 11 - 15 % [facility] Platelet Count 101 (L) 150 - 400 K/UL [facility] MPV 7.6 7 - 11 FL [facility] Neutrophils 83 (H) 41 - 77 % [facility] Lymphocytes 10 (L) 24 - 44 % [facility] Monocytes 6 4 - 12 % [facility] Eosinophils 0 0 - 5 % [facility] Basophils 1 0 - 2 % [facility] Absolute Neutrophil Count 5.50 1.8 - 7.0 K/UL [facility] Absolute Lymph Count 0.70 (L) 1.0 - 4.8 K/UL [facility] Absolute Monocyte Count 0.40 0 - 0.80 K/UL [facility] Absolute Eosinophil Count 0.00 0 - 0.45 K/UL [facility] Absolute Basophil Count 0.10 0 - 0.20 K/UL [facility] Specimen Blood Performing Organization Address [facility] Phone Number [facility] [address] [place] [address] * IONIZED CALCIUM (06/22/2018 1:19 AM) Ionized Calcium 0.98 (L) 1.0 - 1.3 MMOL/L MAIN LAB Specimen Blood Performing Organization Address [facility] Phone Number [facility] [address] [place] [address] * LACTIC ACID (BG - RAPID LACTATE) (06/22/2018 1:19 AM) Lactic Acid,BG 2.2 (H) 0.5 - 2.0 MMOL/L MAIN LAB Specimen Blood Performing Organization Address [facility] Phone Number MAIN LAB [address] [place] [address] * STREPTOCOCCUS PNEUMO AG, URINE (06/22/2018 1:12 AM) Battery Name STREP PNEUMO AG, UR [facility] Specimen Description URINE [facility] Special Requests NONE [facility] Antigen NEGATIVE MAIN LAB Report Status FINAL MAIN LAB 06/22/2018 Specimen Urine Performing Organization Address [facility] Phone Number [facility] [address] [place] [address] * LEGIONELLA ANTIGEN URINE,RAN (06/22/2018 1:12 AM) Battery Name LEGIONELLA URINE ANTIGEN MAIN LAB Specimen Description URINE MAIN LAB Special Requests NONE [facility] Antigen NEGATIVE MAIN LAB Report Status FINAL MAIN LAB 06/22/2018 Specimen Urine - Urine Performing Organization Address [facility] Phone Number [facility] [address] [place] [address] * URINALYSIS, MICROSCOPIC (06/22/2018 1:12 AM) WBCs,UA 0-2 0 - 2 /HPF [facility] RBCs,UA 10-20 0 - 3 /HPF [facility] MucousUA TRACE [facility] Specimen Urine - Urine Performing Organization Address [facility] Phone Number [facility] [address] [place] [phone] * URINALYSIS DIPSTICK (06/22/2018 1:12 AM) Color,UA STRAW [facility] Turbidity,UA CLEAR CLEAR-CLEAR [facility] Specific [place]-Urine 1.006 1.003 - 1.035 [facility] MAIN LAB [...] Specimen Urine - Urine Performing Organization Address [facility] Phone Number [facility] [address] [place] [address] * GENERAL RAD CHEST EXTERNAL IMAGING (06/21/2018 12:30 AM) Narrative Performed At This order has been auto finalized and does not contain a result. * GENERAL RAD CHEST EXTERNAL IMAGING (06/21/2018 12:15 AM) Narrative Performed At This order has been auto finalized and does not contain a result. * CT HEAD EXTERNAL IMAGING (06/21/2018) Narrative Performed At This order has been auto finalized and does not contain a result. 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 Failure Acute respiratory failure with hypoxia (HCC) Acute respiratory failure Administered Medications Medication Order MAR Action Action Date Dose Rate Site acetaZOLAMIDE (DIAMOX) tablet 500 mg Given 06/27/2018 500 mg 500 mg, Oral, ONCE, 1 dose, 06/27/18 15:40 CDT at 1500 albuterol 0.5% (PROVENTIL; VENTOLIN) Given 06/23/2018 2.5 mg nebulizer solution 2.5 mg 00:33 CDT 2.5 mg, Inhalation, RT EVERY 4 HOURS AND PRN, First dose on Thu06/22/18 at 0400, Until Discontinued, ADMINISTERED BY RT Given 06/23/2018 2.5 mg 04:19 CDT Given 06/23/2018 2.5 mg 08:30 CDT barium sulfate 40 % (VARIBAR HONEY) oral Given 06/23/2018 10 mL suspension 10 mL 14:15 CDT 10 mL, Oral, ONCE, 1 dose, 06/23/18 at 1430, GI Procedure Area Only barium sulfate 40 % (VARIBAR NECTAR) Given 06/23/2018 10 mL oral suspension 10 mL 14:15 CDT 10 mL, Oral, ONCE, 1 dose, 06/23/18 at 1430, GI Procedure Area Only barium sulfate 40 % (VARIBAR PUDDING) Given 06/23/2018 10 mL oral paste 10 mL 14:15 CDT 10 mL, Oral, ONCE, 1 dose, 06/23/18 at 1430, GI Procedure Area Only barium sulfate 40 % (VARIBAR THIN Given 06/23/2018 10 mL LIQUID) oral powder for suspension 10 mL 14:15 CDT 10 mL, Oral, ONCE, 1 dose, 06/23/18 at 1430, Mixing Instructions: 1. Gently shake the barium sulfate to loosen the powder. 2. Remove Cap. Add water to the 40% (w/v) line and replace the cap. 3. Invert bottle and tap with fingers to mix the powder into the water. 4. Shake vigorously for 30 seconds. Let stand for 5 minutes. 5. Suspension has hydrated and settled. Re-fill with water to the 40% line and replace cap. 6. Re-shake thoroughly. Product is now ready for use. carvedilol (COREG) tablet 3.125 mg Given 06/26/2018 3.125 mg 3.125 mg, Oral, TWICE DAILY, First dose 10:01 CDT on Thu06/25/18 at 1430, Until Discontinued, Hold for heart rate < 50 bpm, systolic BP < 90 or diastolic BP < 50 Given 06/26/2018 3.125 mg 20:29 CDT Given 06/27/2018 3.125 mg 08:55 CDT cefTRIAXone (ROCEPHIN) IVP 1 g Given 06/22/2018 1 g 1 g, Intravenous, EVERY 24 HOURS, First 02:16 CDT dose on Thu06/22/18 at 0145, Until Discontinued, First dose now AFTER blood cultures done Note: DO NOT administer IV Ceftriaxone through an IV line also used for Calcium products or calcium containing products (i.e. TPN, LR, Dialysate). INSTR: IV PUSH -- RECONSTITUTE EACH 1 GM WITH 10 MLS 0.9% NACL Given 06/23/2018 1 g 01:24 CDT chlorhexidine gluconate (PERIDEX) 0.12 % Given 06/22/2018 15 mL solution 15 mL 08:53 CDT 15 mL, Swish & Spit, TWICE DAILY, First dose on Thu06/22/18 at 0900, Until Discontinued Given 06/22/2018 15 mL 20:00 CDT enoxaparin (LOVENOX) syringe 40 mg Given 06/24/2018 40 mg Abdominal 40 mg, Subcutaneous, DAILY, First dose 21:29 CDT Tissue on Jing 06/24/18 at 2100, Until Discontinued, For patients undergoing surgery: Consult physician in advance -- enoxaparin is an anticoagulant and may need to be held for 12hr prior to surgery or invasive procedures. NOTE: This is a HIGH ALERT Medication. Given 06/25/2018 40 mg Abdominal 20:20 CDT Tissue Given 06/26/2018 40 mg Abdominal 20:30 CDT Tissue famotidine (PEPCID) injection 20 mg Given 06/22/2018 20 mg 20 mg, Intravenous, TWICE DAILY, First 20:00 CDT dose on Thu06/22/18 at 0900, Until Discontinued, DILUTE W/ 10ML NS OR D5W. GIVE IV PUSH OVER 2 MIN Given 06/23/2018 20 mg 08:23 CDT Given 06/23/2018 20 mg 20:43 CDT fentaNYL (SUBLIMAZE) 1000 mcg/ NS 100 mL Dose/Rate 06/22/2018 40 mcg/hr 4 mL/hr IV infusion (std conc)(premade) Change 12:58 CDT 10-100 mcg/hr (1-10 mL/hr) 100 mL, at 1-10 mL/hr, Intravenous, TITRATE DIRECTED , Starting Thu06/22/18 at 1100, Until Thu06/23/18 at 1134, Loading dose 50 mcg (50-150 mcg), administer slowly Initiate at 20 mcg/hr Titrate to keep Self Reporting Pain Score of <=4 or Observational Pain Score of <=2. Bolus 50 mcg (25-50 mcg) IV and/or increase infusion by 5-20 mcg/hr prn breakthrough pain. Recommend titrate every 15 minutes as needed. Std Conc=10mcg/mL. NOTE: This is a HIGH ALERT Medication. Given - New Bag 06/23/2018 40 mcg/hr 4 mL/hr 03:48 CDT Dose/Rate Change 06/23/2018 30 mcg/hr 3 mL/hr 03:50 CDT furosemide (LASIX) injection 20 mg Given 06/22/2018 20 mg 20 mg, Intravenous, ONCE, 1 dose, Thu 18:53 CDT 06/22/18 at 1815, PROTECT FROM LIGHT furosemide (LASIX) injection 40 mg Given 06/22/2018 40 mg 40 mg, Intravenous, ONCE, 1 dose, Thu 08:53 CDT 06/22/18 at 0800, PROTECT FROM LIGHT furosemide (LASIX) injection 40 mg Given 06/23/2018 40 mg 40 mg, Intravenous, ONCE, 1 dose, Thu 12:45 CDT 06/23/18 at 1030, PROTECT FROM LIGHT furosemide (LASIX) tablet 40 mg Given 06/25/2018 40 mg 40 mg, Oral, DAILY, First dose on Thu 13:28 CDT 06/25/18 at 1145, Until Discontinued Given 06/26/2018 40 mg 10:01 CDT Given 06/27/2018 40 mg 08:54 CDT heparin (porcine) PF syringe 5,000 Units Given 06/23/2018 5,000 Units Abdominal 5,000 Units, Subcutaneous, EVERY 8 13:12 CDT Tissue HOURS, First dose on Thu06/22/18 at 0600, Until Discontinued, NOTE: This is a HIGH ALERT Medication. Given 06/23/2018 5,000 Units Abdominal 21:30 CDT Tissue Given 06/24/2018 5,000 Units Abdominal 06:20 CDT Tissue ipratropium bromide (ATROVENT) 0.02 % Given 06/23/2018 0.5 mg nebulizer solution 0.5 mg 00:33 CDT 0.5 mg, Inhalation, RT EVERY 4 HOURS AND PRN, First dose on Thu06/22/18 at 0400, Until Discontinued, ADMINISTERED BY RT Given 06/23/2018 0.5 mg 04:19 CDT Given 06/23/2018 0.5 mg 08:30 CDT latanoprost (XALATAN) 0.005 % ophthalmic Given 06/24/2018 1 drop solution 1 drop 21:29 CDT 1 drop, Left Eye, AT BEDTIME DAILY, First dose on Thu06/23/18 at 2100, Until Discontinued, AFTER BREAKING TAMPER EVIDENT SEAL [CLEAR LID], THROW AWAY THE CLEAR LID LEAVING THE COLORED LID. DO NOT PUT THE CLEAR LID BACK OVER THE COLORED LID. Given 06/25/2018 1 drop 20:28 CDT Given 06/26/2018 1 drop 20:29 CDT levofloxacin (LEVAQUIN) 750 mg/150 mL Given - New 06/24/2018 750 mg IVPB Bag 01:37 CDT 750 mg, Intravenous, 150 mL, Administer over 90 Minutes, EVERY 24 HOURS, 5 doses, First dose on Thu06/22/18 at 0145, Last dose on Thu06/25/18 at 2100, First Dose now AFTER blood cultures done NURSING: Please educate patient and document: Give 1 hour before or 2 hours after meals. If patient is receiving tube feedings, hold tube feed 1hr before and 1hr after dose. Do not give within 2 hours of antacids, magnesium, calcium, iron, zinc, or vitamins containing these minerals. Given - New Bag 06/24/2018 750 mg 21:24 CDT Given - New Bag 06/25/2018 750 mg 20:20 CDT lisinopril (PRINIVIL; ZESTRIL) tablet 10 Given 06/25/2018 10 mg mg 09:26 CDT 10 mg, Oral, DAILY, First dose on Thu06/24/18 at 1045, Until Discontinued Given 06/26/2018 10 mg 10:01 CDT Given 06/27/2018 10 mg 08:55 CDT magnesium sulfate 1 g/D5W 100 mL IVPB Given - New 06/22/2018 1 g 100 mL/hr 1 g, Intravenous, 100 mL, Administer Bag 07:27 CDT over 1 Hours, EVERY 1 HOUR FOR 2 DOSES, 2 doses, First dose on Thu06/22/18 at 0700, Last dose on Thu06/22/18 at 0800, Each 1gm delivers 8.1 mEq Magnesium. Given - New Bag 06/22/2018 1 g 100 mL/hr 08:33 CDT magnesium sulfate 1 g/D5W 100 mL IVPB Given - New 06/22/2018 1 g 100 mL/hr 1 g, Intravenous, 100 mL, Administer Bag 20:00 CDT over 1 Hours, NEEDED, Starting Thu06/22/18 at 1905, Until Thu06/25/18 at 0844, Other..., magnesium replacement (see Admin Instructions), If urine output < 30 mL/hr or SCr >2 mg/dL, check with physician prior to giving magnesium replacement. - For Serum Magnesium > 2.1 mg/dL, No replacement necessary. - For Serum Magnesium 1.8 - 2.0 mg/dL, give Magnesium Sulfate 2 grams IV over 2 hours. - For Serum Magnesium 1.6 - 1.7 mg/dL, give Magnesium Sulfate 3 grams IV over 3 hours. - For Serum Magnesium 1.3 - 1.5 mg/dL, give Magnesium Sulfate 4 grams IV over 4 hours. - For Serum Magnesium <=1.2 mg/dL, give Magnesium Sulfate 6 grams IV over 6 hours AND notify physician. Recheck serum magnesium level 2 hours after completion of appropriate replacement dose. Repeat this standing order x 1. Notify physician if serum magnesium < 2.1 mg/dL after two replacements. Infuse each 1gm Magnesium sulfate over 1 hour. Each 1 gm delivers 8.1 mEq Magnesium. Given - New Bag 06/24/2018 1 g 100 mL/hr 06:10 CDT Given - New Bag 06/24/2018 1 g 100 mL/hr 07:15 CDT magnesium sulfate 1 g/D5W 100 mL IVPB Given - 06/23/2018 1 g 100 mL/hr 1 g, Intravenous, 100 mL, Administer Bag 02:45 CDT over 1 Hours, EVERY 1 HOUR FOR 3 DOSES, 3 doses, First dose on Thu06/23/18 at 0200, Last dose on Thu06/23/18 at 0400, Each 1gm delivers 8.1 mEq Magnesium. Given - New Bag 06/23/2018 1 g 100 mL/hr 03:48 CDT Given - New Bag 06/23/2018 1 g 100 mL/hr 04:51 CDT magnesium sulfate 1 g/D5W 100 mL IVPB Given - New 06/26/2018 1 g 100 mL/hr 1 g, Intravenous, 100 mL, Administer Bag 09:00 CDT over 60 Minutes, EVERY 1 HOUR FOR 2 DOSES, 2 doses, First dose on Thu06/26/18 at 0900, Last dose on Thu06/26/18 at 1000, Each 1gm delivers 8.1 mEq Magnsium. Given - New Bag 06/26/2018 1 g 100 mL/hr 12:43 CDT perflutren lipid microspheres (DEFINITY) Given 06/22/2018 2 Diluted mL injection 1-20 Diluted mL 10:18 CDT 1-20 Diluted mL, Intravenous, ONCE, 1 dose, Thu06/22/18 at 0945, NOTE: This is a HIGH ALERT Medication. potassium chloride in water IVPB 10 mEq Given - New 06/23/2018 10 mEq 50 mL/hr 10 mEq, Intravenous, 50 mL, Administer Bag 04:30 CDT over 60 Minutes, EVERY 1 HOUR FOR 6 DOSES, 6 doses, First dose on Thu06/23/18 at 0200, Last dose on Thu06/23/18 at 0700, NOTE: This is a HIGH ALERT Medication. Given - New Bag 06/23/2018 10 mEq 50 mL/hr 05:31 CDT Given - New Bag 06/23/2018 10 mEq 50 mL/hr 06:33 CDT potassium chloride oral solution 40-60 Given 06/22/2018 40 mEq mEq 18:50 CDT 40-60 mEq, Per NG tube, NEEDED, Starting Thu06/22/18 at 1905, Until Thu06/25/18 at 0844, Other..., For potassium replacement, See admin instructions, If urine output < 30 mL/hr or SCr >2 mg/dL, check with physician prior to giving K+ replacement. - K 3-4 mmol/L, administer KCl 40 mEq PO/NG x1 dose - K 2.5-2.9 mmol/L, administer KCl 60 mEq PO/NG x1 dose AND notify physician for additional dosing - K < 2.5 mmol/L notify physician for dosing Recheck serum potassium two hours after completion of appropriate replacement dose. Repeat this standing order x 2. Notify physician if serum potassium < 3.3 mmol/L after three replacements. Do NOT break or crush tablet potassium chloride SR (K-DUR) tablet Given 06/24/2018 40 mEq 40-60 mEq 06:11 CDT 40-60 mEq, Oral, NEEDED, Starting Thu06/22/18 at 1905, Until Thu06/25/18 at 0844, Other..., For potassium replacement, See admin instructions, If urine output < 30 mL/hr or SCr >2 mg/dL, check with physician prior to giving K+ replacement. - K 3-4 mmol/L, administer KCl 40 mEq PO/NG x1 dose - K 2.5-2.9 mmol/L, administer KCl 60 mEq PO/NG x1 dose AND notify physician for additional dosing - K < 2.5 mmol/L notify physician for dosing Recheck serum potassium two hours after completion of appropriate replacement dose. Repeat this standing order x 2. Notify physician if serum potassium < 3.3 mmol/L after three replacements. Do NOT break or crush tablet propofol (DIPRIVAN) 10 mg/mL IV infusion Dose/Rate 06/23/2018 15 10.6 mL/hr 5-150 mcg/kg/min Change 01:41 CDT mcg/kg/min 117.9 kg Dosing weight (3.537-106.11 mL/hr, rounded to 3.5-106.1 mL/hr) 100 mL, at 3.5-106.1 mL/hr, Intravenous, TITRATE DIRECTED , Starting Thu06/22/18 at 0515, Until Thu06/23/18 at 1134, -Initiate at 10 mcg/kg/min (No loading dose) -Titrate to keep: RASS of 0 to -2- -Increase in 5 mcg/kg/min increments every 1 minute to achieve goal sedation level. -Call physician if maintenance exceeds 150 mcg/kg/min -Taper agent continuously to lowest effective dose to achieve desired level of sedation keeping patient calm and able to participate in care. NOTE: This is a HIGH ALERT Medication. Dose/Rate Change 06/23/2018 10 7.1 mL/hr 02:09 CDT mcg/kg/min Dose/Rate Change 06/23/2018 15 10.6 mL/hr 08:01 CDT mcg/kg/min spironolactone (ALDACTONE) tablet 25 mg Given 06/25/2018 25 mg 25 mg, Oral, DAILY, First dose on Jing 09:26 CDT 06/24/18 at 1045, Until Discontinued, NURSING: Please educate patient and document: Avoid using salt substitutes which have a high potassium content (Nu-Salt). Given 06/26/2018 25 mg 10:01 CDT Given 06/27/2018 25 mg 08:54 CDT in this encounter
--- OUTSIDE RECORDS SUMMARY | 2018-08-09 01:11 | XMS REPORT | Encounter Summary ---
Author Author [facility] Organization [facility] Address Unknown Phone Unavailable Care Team Providers Care Rigger Up Name Role Phone Suze Combs MD PCP Encounter Details Date Type Department Care Team Description 06/26/2018 Pharmacy Visit [facility] [address] [place] [address] Social History Tobacco Use Types Packs/Day Years Used Date Former Smoker Cigarettes 2 35 Quit: 06/24/1978 Smokeless Tobacco: Never Used Alcohol Use Drinks/Week oz/Week Comments No Sex Assigned at Date Recorded Not on file as of this encounter Functional Status Functional Status Response Date of Assessment Does the patient have a hearing impairment: Yes 06/23/2018 as of this encounter Plan of Treatment Not on fileas of this encounter Visit Diagnoses Not on filein this encounter
--- OUTSIDE RECORDS SUMMARY | 2018-08-09 01:12 | XMS REPORT | Continuity of Care Document ---
Demographics x Preferred Language Unknown Marital Status Unknown Caodaism Affiliation Unknown Race Unknown Ethnic Group Unknown Author Author [facility] Organization [facility] Address Unknown Phone Unavailable Allergies Active Description Code Type Severity Reaction Onset Reported/Identified Relationship to Patient Clinical Status Yes NO KNOWN DRUG ALLERGIES UNKNOWN NO KNOWN DRUG ALLERG Yes No Known Allergies [id number] Drug Allergy Unknown N/A 03/06/2016 Medications Medication Packaging Start Date Stop Date Route Dosage Sig FUROSEMIDE VIAL INJ 20 MG (LASIX VIAL) MG 06/21/2018 06/21/2018 ONCE&1722 NORMAL SALINE 1000CC IV BAG INJ 0.9 % (NS 1000CC IV BAG) ml 06/21/2018 06/21/2018 ONCE&1930 Etomidate (Amidate) IV solution 2mg/ml MPF vial MG 06/21/2018 06/21/2018 ONCE&193 SUCCINYL CHOLINE VIAL INJ 20 MG/CC (ANECTINE VIAL) MG 06/21/2018 06/21/2018 ONCE&193 VECURONIUM VIAL INJ 10 MG (NORCURON VIAL) MG 06/21/2018 06/21/2018 ONCE&1950 MIDAZOLAM 2CC VIAL INJ 1 MG/CC (VERSED 2CC VIAL) MG 06/21/2018 06/21/2018 ONCE&195 PROPOFOL 1% VIAL INJ 10 MG/CC (DIPRIVAN 200MG/20CC VIAL) MG 06/21/2018 06/21/2018 ONCE&2010 MIDAZOLAM 2CC VIAL INJ 1 MG/CC (VERSED 2CC VIAL) MG 06/21/2018 06/21/2018 ONCE&2010 VECURONIUM VIAL INJ 10 MG (NORCURON VIAL) MG 06/21/2018 06/21/2018 ONCE&204 VECURONIUM VIAL INJ 10 MG (NORCURON VIAL) MG 06/21/2018 06/21/2018 ONCE&2055 MIDAZOLAM 2CC VIAL INJ 1 MG/CC (VERSED 2CC VIAL) MG 06/21/2018 06/21/2018 ONCE&2055 Cefepime (Maxipime) 1 Gm vial GM 06/21/2018 ONCE&210 VECURONIUM VIAL INJ 10 MG (NORCURON VIAL) MG 06/21/2018 06/21/2018 ONCE&2132 FUROSEMIDE TAB 20 MG (LASIX) MG 04/201806/21/2018 ONCE&214 FUROSEMIDE VIAL INJ 20 MG (LASIX VIAL) MG 06/21/2018 06/21/2018 ONCE&215 VECURONIUM VIAL INJ 10 MG (NORCURON VIAL) MG 06/21/2018 06/21/2018 ONCE&2310 MIDAZOLAM 2CC VIAL INJ 1 MG/CC (VERSED 2CC VIAL) MG 06/21/2018 06/21/2018 ONCE&2310 NORMAL SALINE 1000CC IV BAG INJ 0.9 % (NS 1000CC IV BAG) ml 06/22/2018 06/22/2018 ONCE&0411 Problems Date Dx Coded Attending Type Code Diagnosis Diagnosed By 03/09/2016 BREE CORNEJO MD Ot I10 ESSENTIAL (PRIMARY) HYPERTENSION 03/09/2016 BREE CORNEJO MD Ot R47.89 OTHER SPEECH DISTURBANCES 03/09/2016 BREE CORNEJO MD Ot R53.1 WEAKNESS 03/09/2016 BREE CORNEJO MD Ot R56.9 UNSPECIFIED CONVULSIONS 03/09/2016 BREE CORNEJO MD Ot S02.91XD UNSP FRACTURE OF SKULL, SUBS FOR FX W RO 03/09/2016 BREE CORNEJO MD Ot S06.5X9D TRAUM SUBDR HEM W LOC OF UNSP DURATION, 03/09/2016 BREE CORNEJO MD Ot S06.6X9D TRAUM SUBRAC HEM W LOC OF UNSP DURATION, 03/09/2016 BREE CORNEJO MD Ot Z87.891 PERSONAL HISTORY OF NICOTINE DEPENDENCE 03/10/2016 BREE CORNEJO MD Ot I10 ESSENTIAL (PRIMARY) HYPERTENSION 03/10/2016 BREE CORNEJO MD Ot R47.89 OTHER SPEECH DISTURBANCES 03/10/2016 BREE CORNEJO MD Ot R53.1 WEAKNESS 03/10/2016 BREE CORNEJO MD Ot R56.9 UNSPECIFIED CONVULSIONS 03/10/2016 BREE CORNEJO MD Ot S02.91XD UNSP FRACTURE OF SKULL, SUBS FOR FX W RO 03/10/2016 BREE CORNEJO MD Ot S06.5X9D TRAUM SUBDR HEM W LOC OF UNSP DURATION, 03/10/2016 CORNEJO MD, BREE E Ot S06.6X9D TRAUM SUBRAC HEM W LOC OF UNSP DURATION, 03/10/2016 BREE CORNEJO MD Ot Z87.891 PERSONAL HISTORY OF NICOTINE DEPENDENCE 03/12/2016 BREE CORNEJO MD Ot I10 ESSENTIAL (PRIMARY) HYPERTENSION 03/12/2016 BREE CORNEJO MD Ot R47.89 OTHER SPEECH DISTURBANCES 03/12/2016 BREE CORNEJO MD Ot R53.1 WEAKNESS 03/12/2016 BREE CORNEJO MD Ot R56.9 UNSPECIFIED CONVULSIONS 03/12/2016 BREE CORNEJO MD E Ot S02.91XD UNSP FRACTURE OF SKULL, SUBS FOR FX W RO 03/12/2016 BREE CORNEJO MD Ot S06.5X9D TRAUM SUBDR HEM W LOC OF UNSP DURATION, 03/12/2016 BREE CORNEJO MD Ot S06.6X9D TRAUM SUBRAC HEM W LOC OF UNSP DURATION, 03/12/2016 BREE CORNEJO MD Ot Z87.891 PERSONAL HISTORY OF NICOTINE DEPENDENCE 03/12/2016 BREE CORNEJO MD Ot I10 ESSENTIAL (PRIMARY) HYPERTENSION 03/12/2016 BREE CORNEJO MD Ot R47.89 OTHER SPEECH DISTURBANCES 03/12/2016 BREE CORNEJO MD Ot R53.1 WEAKNESS 03/12/2016 BREE CORNEJO MD Ot R56.9 UNSPECIFIED CONVULSIONS 03/12/2016 BREE CORNEJO MD Ot S02.91XD UNSP FRACTURE OF SKULL, SUBS FOR FX W RO 03/12/2016 BREE CORNEJO MD Ot S06.5X9D TRAUM SUBDR HEM W LOC OF UNSP DURATION, 03/12/2016 BREE CORNEJO MD E Ot S06.6X9D TRAUM SUBRAC HEM W LOC OF UNSP DURATION, 03/12/2016 BREE CORNEJO MD Ot Z87.891 PERSONAL HISTORY OF NICOTINE DEPENDENCE 03/12/2016 BREE CORNEJO MD Ot I10 ESSENTIAL (PRIMARY) HYPERTENSION 03/12/2016 BREE CORNEJO MD Ot R47.89 OTHER SPEECH DISTURBANCES 03/12/2016 BREE CORNEJO MD Ot R53.1 WEAKNESS 03/12/2016 BREE CORNEJO MD Ot R56.9 UNSPECIFIED CONVULSIONS 03/12/2016 BREE CORNEJO MD E Ot S02.91XD UNSP FRACTURE OF SKULL, SUBS FOR FX W RO 03/12/2016 BREE CORNEJO MD E Ot S06.5X9D TRAUM SUBDR HEM W LOC OF UNSP DURATION, 03/12/2016 BREE CORNEJO MD Ot S06.6X9D TRAUM SUBRAC HEM W LOC OF UNSP DURATION, 03/12/2016 BREE CORNEJO MD E Ot Z87.891 PERSONAL HISTORY OF NICOTINE DEPENDENCE 03/14/2016 BREE CORNEJO MD Ot I10 ESSENTIAL (PRIMARY) HYPERTENSION 03/14/2016 BREE CORNEJO MD Ot R47.89 OTHER SPEECH DISTURBANCES 03/14/2016 BREE CORNEJO MD E Ot R53.1 WEAKNESS 03/14/2016 BREE CORNEJO MD E Ot R56.9 UNSPECIFIED CONVULSIONS 03/14/2016 BREE CORNEJO MD Ot S02.91XD UNSP FRACTURE OF SKULL, SUBS FOR FX W RO 03/14/2016 BREE CORNEJO MD Ot S06.5X9D TRAUM SUBDR HEM W LOC OF UNSP DURATION, 03/14/2016 BREE CORNEJO MD E Ot S06.6X9D TRAUM SUBRAC HEM W LOC OF UNSP DURATION, 03/14/2016 BREE CORNEJO MD E Ot Z87.891 PERSONAL HISTORY OF NICOTINE DEPENDENCE 03/14/2016 BREE CORNEJO MD E Ot B96.20 UNSP ESCHERICHIA COLI THE CAUSE OF DI 03/14/2016 BREE CORNEJO MD Ot I10 ESSENTIAL (PRIMARY) HYPERTENSION 03/14/2016 BREE CORNEJO MD Ot N39.0 URINARY TRACT INFECTION, SITE NOT SPECIF 03/14/2016 BREE CORNEJO MD E Ot R47.89 OTHER SPEECH DISTURBANCES 03/14/2016 BREE CORNEJO MD E Ot R53.1 WEAKNESS 03/14/2016 BREE CORNEJO MD E Ot R56.9 UNSPECIFIED CONVULSIONS 03/14/2016 BREE CORNEJO MD E Ot S02.91XD UNSP FRACTURE OF SKULL, SUBS FOR FX W RO 03/14/2016 BREE CORNEJO MD E Ot S06.5X9D TRAUM SUBDR HEM W LOC OF UNSP DURATION, 03/14/2016 BREE CORNEJO MD Ot S06.6X9D TRAUM SUBRAC HEM W LOC OF UNSP DURATION, 03/14/2016 CHANTAL ZAPATA, BREE Rodas Ot Z87.891 PERSONAL HISTORY OF NICOTINE DEPENDENCE 06/21/2018 Roe Barrett 401.0 MALIGNANT ESSENTIAL HYPERTENSION 06/21/2018 Roe Barrett 428.9 HEART FAILURE, UNSPECIFIED 06/21/2018 Roe Barrett 518.51 ACUTE RESPIRATORY FAILURE FOLLOWING TRAUMA AND SURGERY 06/21/2018 Roe Barrett 782.3 EDEMA 06/21/2018 Roe Barrett I10 ESSENTIAL (PRIMARY) HYPERTENSION 06/21/2018 Roe Barrett I50.9 HEART FAILURE, UNSPECIFIED 06/21/2018 Roe Barrett J96.00 ACUTE RESPIRATORY FAILURE, UNSP W HYPOXIA OR HYPERCAPNIA 06/21/2018 Roe Barrett R60.0 LOCALIZED EDEMA 07/13/2018 SANTANA SREE E COMPUTER LABORATORY TECHNICIAN Ot E66.9 OBESITY, UNSPECIFIED 07/13/2018 SANTANA SREE E COMPUTER LABORATORY TECHNICIAN Ot G47.10 HYPERSOMNIA, UNSPECIFIED 07/13/2018 IMELDA DILLONINE E COMPUTER LABORATORY TECHNICIAN Ot I50.9 HEART FAILURE, UNSPECIFIED 07/13/2018 SANTANA, SREE E COMPUTER LABORATORY TECHNICIAN Ot J18.1 LOBAR PNEUMONIA, UNSPECIFIED ORGANISM 07/13/2018 SANTANA SREE E COMPUTER LABORATORY TECHNICIAN Ot K44.9 DIAPHRAGMATIC HERNIA WITHOUT OBSTRUCTION 07/13/2018 SANTANA SREE E COMPUTER LABORATORY TECHNICIAN Ot R60.0 LOCALIZED EDEMA 07/13/2018 IMELDA DILLONINE E COMPUTER LABORATORY TECHNICIAN Ot E66.9 OBESITY, UNSPECIFIED 07/13/2018 SANTANA SREE E COMPUTER LABORATORY TECHNICIAN Ot G47.10 HYPERSOMNIA, UNSPECIFIED 07/13/2018 SANTANA SREE E COMPUTER LABORATORY TECHNICIAN Ot I50.9 HEART FAILURE, UNSPECIFIED 07/13/2018 SANTANA, SREE E COMPUTER LABORATORY TECHNICIAN Ot J96.20 ACUTE AND CHR RESP FAILURE, UNSP W HYPOX 07/13/2018 IMELDA DILLONINE E COMPUTER LABORATORY TECHNICIAN Ot R06.00 DYSPNEA, UNSPECIFIED 07/13/2018 SANTANA SREE E COMPUTER LABORATORY TECHNICIAN Ot R60.9 EDEMA, UNSPECIFIED 08/04/2018 SANTANA SREE E COMPUTER LABORATORY TECHNICIAN Ot E66.9 OBESITY, UNSPECIFIED 08/04/2018 SANTANA SREE E COMPUTER LABORATORY TECHNICIAN Ot G47.10 HYPERSOMNIA, UNSPECIFIED 08/04/2018 SREE DILLON APRN Ot I50.9 HEART FAILURE, UNSPECIFIED 08/04/2018 SREE DILLON APRN Ot J18.1 LOBAR PNEUMONIA, UNSPECIFIED ORGANISM 08/04/2018 SREE DILLON APRN Ot K44.9 DIAPHRAGMATIC HERNIA WITHOUT OBSTRUCTION 08/04/2018 SREE DILLON APRN Ot R60.0 LOCALIZED EDEMA Procedures There is no data. Results Test Result Range Arterial Blood Gas - 06/21/18 15:00 Base 9 mmol/L 1.80-4.20 HCO3 35.4 mmol/L 20-31 O2 Sat 46% RA % 95-100 pCO2 67.7 mm/Hg 35-45 pH 7.326 7.35-7.45 PO2 28 mm/Hg 80-95 Cardiac Panel - 06/21/18 15:00 CK 31 U/L 26-174 CK-MB 1.0 ng/ml 0.0-9.2 Myoglobin 56.1 ng/ml 1.6-154.9 Troponin 0.035 ng/mL 0.000-0.400 EKG - 06/21/18 15:09 EKG Complete BNP - 06/21/18 16:18 BNP 517.60 pg/ml 0.00-100.00 D-Dimer - 06/21/18 17:19 DDimer 413.00 ng/mL 21.00-229.00 Blood Culture - 06/21/18 19:13 PRELIM CULTURE RESULTS Blood Culture Negative, No Growth Day 1 FINAL CULTURE RESULTS Blood Culture Negative, No Growth Day 5 CULTURE SOURCE drawn @ Right wrist arterial blood Arterial Blood Gas - 06/21/18 19:13 Base 7.00 mmol/L 1.80-4.20 HCO3 36 mmol/L 20-31 O2 Sat 96 10L O2 % 95-100 pCO2 101 mm/Hg 35-45 pH 7.16 7.35-7.45 PO2 109 mm/Hg 80-95 Arterial Blood Gas - 06/21/18 20:00 Base 10.00 mmol/L 1.80-4.20 HCO3 35 mmol/L 20-31 O2 Sat 97 50% BiPAP % 95-100 pCO2 53 mm/Hg 35-45 pH 7.42 7.35-7.45 PO2 91 mm/Hg 80-95 Blood Culture - 06/21/18 20:45 PRELIM CULTURE RESULTS Blood Culture Negative, No Growth Day 1 FINAL CULTURE RESULTS Blood Culture Negative, No Growth Day 5 CULTURE SOURCE drawn @ Right wrist arterial blood Urinalysis - 06/21/18 20:49 Icotest N/A Negative Urine Casts Granular cast: 0-3/HPF Urine Volume Urine Volume Sufficient (10mL) Urine-Appearance Clear Clear Urine-Bacteria Negative Urine-Bilirubin Negative Negative Urine-Blood 2+ Negative Urine-Color Yellow Colorless-Lt. Yellow Urine-Epithelial Cells 0-5/HPF Urine-Glucose Negative Negative Urine-Ketones Negative Negative Urine-Leukocytes Negative Negative Urine-Mucus Trace Urine-Nitrite Negative Negative Urine-Other Urine Saved if Culture Needed (48hrs from time of collection) Urine-pH 6.0 5-8.5 Urine-Protein Negative Negative Urine-RBC 20-40/HPF Urine-Specific Thayer 1.020 1.000-1.030 Urine-WBC 0-2/HPF Urobilinogen 0.2 0.2-1.0 Arterial Blood Gas - 06/21/18 21:51 Base 12.00 mmol/L 1.80-4.20 HCO3 34 mmol/L 20-31 O2 Sat 97 50% O2 BiPAP % 95-100 pCO2 38 mm/Hg 35-45 pH 7.56 7.35-7.45 PO2 82 mm/Hg 80-95 BNP - 06/21/18 22:37 BNP 400.80 pg/ml 0.00-100.00 Comprehensive Metabolic Panel - 06/28/18 15:15 Albumin 3.2 g/dL 3.6-5.1 ALP 56 U/L 35-130 ALT 19 U/L 6-45 Anion Gap 12 6-14 AST 22 U/L 2-40 BUN 34 mg/dL 5-25 Calcium 8.4 mg/dL 8.3-10.4 Chloride 92 mmol/L 95-114 CO2 40 mEq/L 22-33 Creat 1.01 mg/dL 0.50-1.50 eGFR 71 mL/min/1.73m2 >59 Globulin 2.3 g/dL 2.3-3.5 Glucose 123 mg/dL 70-110 Osmo 299 280-295 Potassium 3.4 mmol/L 3.5-5.3 Sodium 141 mmol/L 134-148 TBil 0.5 mg/dL 0.2-1.2 TP 5.5 g/dL 6.0-8.3 Magnesium - 06/28/18 15:15 Mg++ 1.9 mg/dL 1.6-2.6 Peripheral Smear - 07/01/18 15:00 Peripheral smear Sent to [facility] for review [facility] - 07/06/18 11:30 Anion Gap 13 6-14 BUN 27 mg/dL 5-25 Calcium 8.7 mg/dL 8.3-10.4 Chloride 92 mmol/L 95-114 CO2 40 mEq/L 22-33 Creat 0.81 mg/dL 0.50-1.50 eGFR 91 mL/min/1.73m2 >59 Glucose 105 mg/dL 70-110 Osmo 294 280-295 Potassium 5.0 mmol/L 3.5-5.3 Sodium 140 mmol/L 134-148 [facility] - 07/19/18 11:00 Anion Gap 14 6-14 BUN 28 mg/dL 5-25 Calcium 8.5 mg/dL 8.3-10.4 Chloride 96 mmol/L 95-114 CO2 32 mEq/L 22-33 Creat 0.86 mg/dL 0.50-1.50 eGFR 85 mL/min/1.73m2 >59 Glucose 92 mg/dL 70-110 Osmo 288 280-295 Potassium 4.9 mmol/L 3.5-5.3 Sodium 137 mmol/L 134-148 IFOBT Occult Blood - 07/20/18 07:55 IFOBT Occult Blood NEGATIVE Negative Encounters ACCT No. Visit Date/Time Discharge Status Pt. Type Provider Facility Loc./Unit Complaint [id number] 02/24/2016 20:20:00 02/24/2016 20:20:00 DIS Outpatient LESTER MENG [facility] EMR [id number] 07/20/2018 09:30:00 07/20/2018 23:59:00 DIS Outpatient Suze Combs [id number] 07/19/2018 11:46:00 07/19/2018 23:59:00 DIS Outpatient Suze Combs [id number] 07/06/2018 13:47:00 07/06/2018 23:59:00 DIS Outpatient JR ANDREA [id number] 07/06/2018 12:14:00 07/06/2018 23:59:00 DIS Outpatient Suze Combs [id number] 07/01/2018 15:26:00 07/01/2018 23:59:00 DIS Outpatient Suze Combs [id number] 06/28/2018 16:03:00 06/28/2018 23:59:00 DIS Outpatient Suze Combs [id number] 06/21/2018 14:55:00 06/21/2018 23:16:00 DIS Outpatient [facility] [id number] 06/29/2018 11:53:37 Document Registration [id number] 06/21/2018 17:22:54 Document Registration [id number] 07/13/2018 12:59:00 07/13/2018 23:59:59 CLS Preadmit SREE DILLON APRN [facility] RAD SLEEP DISORDER, CONGESTIVE HEART FAILURE [id number] 07/09/2018 13:00:00 07/09/2018 23:59:59 CLS Outpatient SREE DILLON APRN [facility] RT CONGESTIVE HEART FAILURE,DYSPNEA [id number] 07/08/2018 14:20:00 07/08/2018 23:59:59 CLS Outpatient SREE DILLON APRN [facility] RAD CONGESTIVE HEART FAILURE,EDEMA [id number] 03/06/2016 18:10:00 03/14/2016 06:43:00 DIS Inpatient CHANTAL ZAPATA, RBEE Rodas [facility] IRF SUBDURAL HEMATOMA, SUBARACHNOID HEMMORRHAGE [id number] 03/12/2016 12:26:03 03/12/2016 23:59:59 CLS Outpatient Nazario Rodriguez
--- OUTSIDE RECORDS SUMMARY | 2018-08-09 01:12 | XMS REPORT ---
Author Author [facility] Medical Staff Organization [facility] Address [address], [place] [address] Phone [phone] Summary purpose TRANSITION OF CARE AUTO GENERATION Chief Complaint and Reason for Visit No authorized Reason for Visit (Admitting Diagnosis) is available for this visit. Problem list No authorized problems tracked for continuity of care are available for this visit. Encounters No authorized problems tracked for encounter diagnoses are available for this visit. Medications No medications recorded for this patient visit Allergies, adverse reactions, alerts No allergy information is available for this patient. Immunizations No immunizations recorded for this patient visit Relevant diagnostic tests and/or laboratory data No authorized results are available for this patient visit History of procedures No procedures recorded for this patient visit. Functional status No functional or cognitive status observations are available for this visit. Vital signs No authorized vital signs are available for this visit. Social history No Social History or smoking status observations were recorded for this visit. ( Unknown if ever smoked.) Treatment Plan No treatment plan text is available for this visit. Hospital discharge instructions No discharge instruction text is available for this visit.
--- OUTSIDE RECORDS SUMMARY | 2018-08-09 01:12 | XMS REPORT | Encounter Summary ---
Author Author [facility] Organization [facility] Address Unknown Phone Unavailable Care Team Providers Care Video Control Engineer Name Role Phone PCP Unavailable Encounter Details Date Type Department Care Team Description 06/21/2018 Hospital [facility] Encounter Hospital Radiology [facility] [address] [place] [address] Social History Tobacco Use Types Packs/Day Years Used Date Never Assessed Sex Assigned at Date Recorded Not on file as of this encounter Medications at Time of Discharge [...] 25 mg tablet daily. Take with food. amLODIPine (NORVASC) 10 Take 10 mg by mouth 06/26/2018 mg tablet daily. bisoprolol (ZEBETA) 10 mg Take 10 mg by mouth 06/26/2018 tablet daily. carvedilol (COREG) 3.125 Take one tablet by mouth 180 tablet 3 201706/27/2018 mg tablet twice daily. Take with food. Chlorpheniramine-Phenylep Take 1 tablet by mouth 06/26/2018 hrine (SINUS-ALLERGY daily. (PHENYLEPHRINE)) 4-10 mg tab furosemide (LASIX) 40 mg Take one tablet by mouth 90 tablet 3 201706/27/2018 tablet daily. ibuprofen (ADVIL) 200 mg Take 600 mg by mouth 06/26/2018 tablet every 12 hours as needed for Pain. Take with food. spironolactone Take one tablet by mouth 90 tablet 3 06/27/201806/27 (ALDACTONE) 25 mg tablet daily. Take with food. as of this encounter Plan of Treatment Not on fileas of this encounter Procedures Procedure Name Priority Date/Time Associated Diagnosis Comments CT HEAD EXTERNAL IMAGING Routine 06/21/2018 Diagnosis unknown Results for this 12:00 AM CDT procedure are in the results section. in this encounter Visit Diagnoses Not on filein this encounter
--- OUTSIDE RECORDS SUMMARY | 2018-08-09 01:12 | XMS REPORT | Encounter Summary ---
Author Author [facility] Organization [facility] Address Unknown Phone Unavailable Care Team Providers Care Military Education Coordinator Name Role Phone PCP Unavailable Encounter Details Date Type Department Care Team Description 06/21/2018 Hospital [facility] Encounter Hospital Radiology [facility] [address] [place] [address] Social History Tobacco Use Types Packs/Day Years [...] Procedure Name Priority Date/Time Associated Diagnosis Comments GENERAL RAD CHEST Routine 06/21/2018 Diagnosis unknown Results for this EXTERNAL IMAGING 12:30 AM CDT procedure are in the results section. in this encounter Visit Diagnoses Not on filein this encounter
--- OUTSIDE RECORDS SUMMARY | 2018-08-09 01:12 | XMS REPORT | Encounter Summary ---
Author Author [facility] Organization [facility] Address Unknown Phone Unavailable Care Team Providers Care Medical Asst Name Role Phone PCP Unavailable Encounter Details Date Type Department Care Team Description 06/21/2018 Hospital [facility] Encounter Hospital Radiology Main [facility] [address] [place] [address] Social History Tobacco Use Types Packs/Day Years [...]
--- OUTSIDE RECORDS SUMMARY | 2018-08-09 01:12 | XMS REPORT ---
Author Author [facility] Medical Staff Organization [facility] Address [address], [place] [id number] Phone [phone] Summary purpose TRANSITION OF CARE AUTO GENERATION [...]
[2018-08-09] MEDS ORDERED: RT-ALBUTEROL/IPRATROPIUM 3 ML (DUONEB) VIAL INH ONE (01:45)
--- NOTE | 2018-08-09 01:51 | ED Respiratory ---
General Stated Complaint: CO2 LEVEL HIGH Source: patient, spouse Exam Limitations: no limitations History of Present Illness Date Seen by Provider: Aug 09, 2018 Time Seen by Provider: 01:37 Initial Comments Patient presents to the ER begrudgingly with his and chief complaint that he woke up just before coming in and was talking about somebody who was in the room sent by their neighbor. The says there was nobody in the room and the last time he hallucinated like this it was because his oxygen was low and his CO2 was high and he ended up at with specialists in the ICU. They deny that he has COPD or asthma or any kind of interstitial lung disease. He does have pronounced kyphosis. He supposed to be wearing a CPAP but the first mass did not fit well and they have not been back yet to refill them with a new mask. He does wear about 1.5 L of oxygen by nasal cannula at baseline and his says that it often falls off his face when he sleeping. He denies there is anything wrong with him but hasn't agreed to come out and get checked out to prove it. He insists that there was someone in the room tonight. He says he's had a productive cough lately but no fevers or chills. Allergies and Home Medications Allergies Coded Allergies: No Known Allergies (Verified Allergy, Unknown, 03/06/16) Home Medications Acetaminophen 500 Mg Tablet, 1,000 MG PO Q6H PRN for MILD PAIN Prescribed by: BREE CORNEJO on 03/13/161418 Amlodipine Besylate 10 Mg Tablet, 10 MG PO DAILY, (Reported) Amoxicillin 500 Mg Capsule, 500 MG PO TID Prescribed by: BREE CORNEJO on 03/13/16 141 Bisoprolol Fumarate 10 Mg Tablet, 10 MG PO DAILY, (Reported) Latanoprost 2.5 Ml Drops, 1 DROP OS HS, (Reported) Levetiracetam 1,000 Mg Tablet, 1,000 MG PO BID Prescribed by: BREE CORNEJO on 03/13/16 141 Lisinopril 40 Mg Tablet, 40 MG PO DAILY, (Reported) Sulfamethoxazole/Trimethoprim 1 Each Tablet, 1 EA PO BID WITH MEALS Prescribed by: BREE CORNEJO on 03/13/16 1419 Patient Home Medication List Home Medication List Reviewed: Yes Review of Systems Review of Systems Constitutional: No chills, No diaphoresis EENTM: No ear pain, No eye pain, No tearing Respiratory: cough, dyspnea on exertion, phlegm; No short of breath, No wheezing Cardiovascular: No chest pain, No palpitations Gastrointestinal: No abdominal pain, No constipation, No nausea Genitourinary: No discharge, No dysuria Musculoskeletal: No back pain, No joint pain Skin: No pruritus, No rash Past Tneejec-Dvhbht-Smiugp Hx Patient Social History Alcohol Use: Denies Use Recreational Drug Use: No Smoking Status: Never a Smoker Recent Foreign Travel: No Contact w/Someone Who Travel: No Past Medical History Eye Surgery, Orthopedic Hypertension Seizure Disorder Arthritis Prostate Physical Exam Vital Signs - First Documented 08/09/18 08/09/18 01:30 02:00 Temp 98.1 Pulse 88 Resp 22 B/P (MAP) 129/93 (105) Pulse Ox 96 O2 Delivery Room Air O2 Flow Rate 2.00 Capillary Refill : Height: 5'9.00" Weight: 285lbs. 0.0oz. 129.000774mi; 42.2 BMI Method: General Appearance: WD/WN, no apparent distress Eyes: Bilateral Eye Normal Inspection, Bilateral Eye PERRL, Bilateral Eye EOMI HEENT: PERRL/EOMI, normal ENT inspection, pharynx normal Neck: supple, normal inspection Respiratory: chest non-tender, no respiratory distress, no accessory muscle use , rales (few left base) Cardiovascular: normal peripheral pulses, regular rate, rhythm Gastrointestinal: non tender, soft Neurologic/Psychiatric: alert, normal mood/affect, oriented x 3 Progress/Results/Core Measures Suspected Sepsis SIRS Temperature: Pulse: Respiratory Rate: Laboratory Tests 08/09/18 04:31: White Blood Count 4.4 Blood Pressure / Mean: Laboratory Tests 08/09/18 04:31: Platelet Count 169 Results/Orders Lab Results Laboratory Tests Test 08/09/18 01:42 08/09/18 04:31 Range/Units Blood Gas Puncture Site R RAD Blood Gas Patient Temperature 98.1 Arterial Blood pH 7.37 7.37-7.43 Arterial Blood Partial Pressure CO2 65 H 35-45 MMHG Arterial Blood Partial Pressure O2 86 79-93 MMHG Arterial Blood HCO3 37 H 23-27 MMOL/L Arterial Blood Total CO2 38.8 H 21.0-31.0 MMOL/L Arterial Blood Oxygen Saturation 97 94-100 % Arterial Blood Base Excess 11.1 H -2.5-2.5 MMOL/L Cuong Test YES-POS Blood Gas Ventilator Setting NO Blood Gas Inspired Oxygen 2L White Blood Count 4.4 4.3-11.0 10^3/uL Red Blood Count 3.73 L 4.35-5.85 10^6/uL Hemoglobin 12.9 L 13.3-17.7 G/DL Hematocrit 40 40-54 % Mean Corpuscular Volume 106 H 80-99 FL Mean Corpuscular Hemoglobin 35 H 25-34 PG Mean Corpuscular Hemoglobin Concent 33 32-36 G/DL Red Cell Distribution Width 14.2 10.0-14.5 % Platelet Count 169 130-400 10^3/uL Mean Platelet Volume 9.5 7.4-10.4 FL Neutrophils (%) (Auto) 73 42-75 % Lymphocytes (%) (Auto) 17 12-44 % Monocytes (%) (Auto) 9 0-12 % Eosinophils (%) (Auto) 1 0-10 % Basophils (%) (Auto) 0 0-10 % Neutrophils # (Auto) 3.2 1.8-7.8 X 10^3 Lymphocytes # (Auto) 0.8 L 1.0-4.0 X 10^3 Monocytes # (Auto) 0.4 0.0-1.0 X 10^3 Eosinophils # (Auto) 0.0 0.0-0.3 10^3/uL Basophils # (Auto) 0.0 0.0-0.1 10^3/uL My Orders Orders - TY SABA Chest Pa/Lat (2 View) (08/09/18 01:42) Albuterol/Ipra Inhalation Soln (Duoneb I (08/09/18 01:45) Arterial Blood Gas (08/09/18 01:42) Cbc With Automated Diff (08/09/18 01:42) Comprehensive Metabolic Panel (08/09/18 01:42) Hs C Reactive Protein (08/09/18 01:42) Svn Small Volume Nebulizer (08/09/18 01:42) Arterial Blood Draw (08/09/18 ) Medications Given in ED Current Medications Medications Dose Ordered Sig/Yolande Route Start Time Stop Time Status Last Admin Dose Admin Albuterol/ Ipratropium 3 ml ONCE ONCE INH 08/09/18 01:45 08/09/18 01:46 DC 08/09/18 02:00 3 ML Vital Signs/I&O 08/09/18 08/09/18 01:30 02:00 Temp 98.1 Pulse 88 Resp 22 B/P (MAP) 129/93 (105) Pulse Ox 96 96 O2 Delivery Room Air Nasal Cannula O2 Flow Rate 2.00 Capillary Refill : Progress Note #1: Time: 01:55 Progress Note When the patient arrived he was 85% on room air after taking off his O2 cannula for about 20 seconds and transition him to the bed. After putting the nasal cannula and at 2 L he came up to about 89-90%. On 3 L he is in the 94-96 range after a short period of rest. He does not become breathless with speaking. Plan to get an ABG, CBC CMP CRP and a 2 view chest x-ray to evaluate crackles. Differential could be an exacerbation of his underlying lung condition whatever that is versus pneumonia. Also possible he is just having some hypoxia and hallucinations secondary to slipping his O2 office he sleeps when he needs to be on some kind of positive pressure systolic ventilation. 2015 the patient was treated for a fall skull fracture subarachnoid bleed and seizures subsequently. He has a history of prostate surgery for cancer, left total knee, arthritis and hypertension. One month ago the patient had a CT angiogram 07/08/18: 1. No evidence of pulmonary embolism or thoracic aortic dissection. 2. Large hiatal hernia. 3. There is some mild subsegmental atelectasis or scarring on the left as well as a small area of parenchymal consolidation in the lingula consistent with pneumonia or atelectasis. No other significant abnormality is seen. Progress Note #2: Time: 04:42 Progress Note The patient states she is tired of waiting and wants to go home. The white count is normal the hemoglobin is 12.5. His x-ray is unremarkable. He does have elevated CO2 however he shows compensation from the renal standpoint. We've encouraged him to follow up with primary care and call [facility] today to get his CPAP set up for him. The only thing we don't have his CMP and I doubt they'll be anything found later that wouldn't change our course of action since his chief complaint is shortness of breath. Diagnostic Imaging Diagonstic Imaging: Xray Plain Films/CT/US/NM/MRI: chest (2v) Comments Linear atelectasis seen on the right as well as along the left versus some scarring. No evidence of infiltrate. Reviewed: Reviewed by Me Departure Impression Primary Impression: Visual hallucination Additional Impressions: Chronic respiratory acidosis Chronic intermittent hypoxia with obstructive sleep apnea Chronic respiratory failure with hypoxia, on home O2 therapy Disposition: 01 HOME, SELF-CARE Condition: Stable Departure-Patient Inst. Decision time for Depature: 04:44 Referrals: JACKLYN DURAN MD (PCP/Family) Primary Care Physician Patient Instructions: Obstructive Sleep Apnea, Adult (DC) Add. Discharge Instructions: Please make plans to follow-up with your primary care team this week if possible. Call and [facility] and request that they get your CPAP set up so that you can tolerate it sooner rather than later. TY SABA Aug 09, 2018 01:51
[2018-08-09 02:02] LABS: ABG BASE EXCESS 11.1 MMOL/L (-2.5-2.5); ABG OXYGEN SATURATION 97 % (94-100); ABG PCO2 65 MMHG (35-45); ABG PH 7.37 (7.37-7.43); ABG PO2 86 MMHG (79-93); ABG TCO2 38.8 MMOL/L (21.0-31.0)
[2018-08-09 02:06] LABS: ALLENS TEST YES-POS; INSPIRED O2 2L
[2018-08-09 02:07] LABS: PATIENT TEMP 98.1; VENTILATOR NO
[2018-08-09 04:38] LABS: BASOPHILS % (AUTO) 0 % (0-10); EOSINOPHILS % (AUTO) 1 % (0-10); HEMATOCRIT 40 % (40-54); HEMOGLOBIN 12.9 G/DL (13.3-17.7); LYMPHOCYTES # (AUTO) 0.8 X 10^3 (1.0-4.0); LYMPHOCYTES % (AUTO) 17 % (12-44); MEAN CORPUSCULAR HEMOGLOBIN 35 PG (25-34); MEAN CORPUSCULAR HGB CONC 33 G/DL (32-36); MEAN CORPUSCULAR VOLUME 106 FL (80-99); MEAN PLATELET VOLUME 9.5 FL (7.4-10.4); MONOCYTES # (AUTO) 0.4 X 10^3 (0.0-1.0); MONOCYTES % (AUTO) 9 % (0-12); NEUTROPHILS # (AUTO) 3.2 X 10^3 (1.8-7.8); NEUTROPHILS % (AUTO) 73 % (42-75); PLATELET COUNT 169 10^3/uL (130-400); RED BLOOD COUNT 3.73 10^6/uL (4.35-5.85); RED CELL DISTRIBUTION WIDTH 14.2 % (10.0-14.5); WHITE BLOOD COUNT 4.4 10^3/uL (4.3-11.0)
[2018-08-09 04:47] VITALS: BP 129/93
[2018-08-09 04:54] LABS: ALANINE AMINOTRANSFERASE 9 U/L (0-55); ALBUMIN 3.7 GM/DL (3.2-4.5); ALKALINE PHOSPHATASE 119 U/L (40-136); BILIRUBIN,TOTAL 0.7 MG/DL (0.1-1.0); BUN/CREATININE RATIO 29; CALCIUM 9.2 MG/DL (8.5-10.1); CARBON DIOXIDE 30 MMOL/L (21-32); CHLORIDE 95 MMOL/L (98-107); GFR ESTIMATED > 60; GLUCOSE 117 MG/DL (70-105); POTASSIUM 4.9 MMOL/L (3.6-5.0); SODIUM 137 MMOL/L (135-145); TOTAL PROTEIN 6.8 GM/DL (6.4-8.2)
--- NOTE | 2018-08-09 07:13 | Diagnostic Imaging Report ---
INDICATION: Dyspnea, cough and congestion. Study is limited by positioning. FINDINGS: PA and lateral views of the chest reveal bilateral air trapping. There appear to be multiple right upper rib fractures which are likely nonacute in nature. No definite pneumothorax is seen on the limited study. Increased density is seen in the perihilar regions likely due to pneumonitis or atypical pneumonia. Left lower lobe and hilar calcifications are likely due to granulomatous disease. No definite pleural fluid is identified. Note is made of compression fracture deformity in the thoracolumbar junction region. IMPRESSION: Pneumonitis or atypical pneumonia in the perihilar regions, greater on the right. Note is made of old right rib fractures and rather severe compression fracture deformity in the spine at the thoracolumbar junction. Dictated by: Dictated on workstation # [id number]
== END 2018-08-09 05:10 | disposition home or self-care (01) ==
LOC: EDUNIT# 01:01 → ER 01:03
DX: R44.1 Visual hallucinations (principal); E87.2 Acidosis; G47.33 Obstructive sleep apnea (adult) (pediatric); J96.11 Chronic respiratory failure with hypoxia; I10 Essential (primary) hypertension; G40.909 Epilepsy, unspecified, not intractable, without status epilepticus; Z88.8 Allergy status to other drugs, medicaments and biological substances
CPT/HCPCS: 36415; 36600; 71046; 80053; 82805; 85025; 86141; 94640

== ENCOUNTER → 2018-08-24 | Outpatient (CLI) | payer MEDICARE | END | disposition home or self-care (01) | LOC: PREOP 05:42 | PROVIDERS: ATTEND Specialist | DX: Z01.818 Encounter for other preprocedural examination (principal) ==